=== PATIENT | male | born 1980 | race Two or more races ===

== ENCOUNTER 2020-05-24 15:58 | Inpatient (IN) | payer OTHER ==
[~2020-05-24] VITALS: Ht 185.4 cm; Wt 157.6 kg
[2020-05-24] MEDS ORDERED: methylPREDNISolone SOD SUCC 125 MG/2 ML VL IV ONE (16:15)
[2020-05-24 16:48] LABS: Basophils # (auto) 0 10 ^3/uL (0-0.2); Basophils % (auto) 0.3 % (0.0-2.0); Eosinophils # (auto) 0 10 ^3/uL (0-0.8); Hematocrit 47.9 % (41.0-53.0); Hemoglobin 17.1 g/dL (13.5-17.5); Lymphocytes # (auto) 0.6 10 ^3/uL (0.4-5.4); Lymphocytes % (auto) 8.4 % (10.0-50.0); Mean Corpuscular Hemoglobin 30.8 pg (28.0-32.0); Mean Corpuscular Hgb Conc. 35.7 g/dL (32.0-36.0); Mean Corpuscular Volume 86.2 fL (80.0-100.0); Monocytes # (auto) 0.5 10 ^3/uL (0-1.3); Monocytes % (auto) 6.7 % (0.0-12.0); Neutrophils # (auto) 5.9 10 ^3/uL (1.6-8.6); Neutrophils % (auto) 84.6 % (37.0-80.0); Nucleated Red Blood Cells % 0.4 %; Platelet Count (auto) 264 10^3/uL (140-450); Red Blood Cells 5.55 10^6/uL (4.5-5.90); Red Cell Distribution Width 13.6 % (11.8-14.3)
[2020-05-24 17:13] LABS: Albumin 2.9 g/dL (3.4-5.0); Calcium 8.7 mg/dL (8.5-10.1); Potassium 3.3 mmol/L (3.5-5.1)
[2020-05-24 17:20] LABS: BUN/Creatinine Ratio 16.7; Bilirubin, Total 0.8 mg/dL (0.2-1.0); CRP High Sensitivity 7.27 mg/dL (< 0.3); Total Protein 7.9 g/dL (6.4-8.2)
[2020-05-24] MEDS ORDERED: MORPHINE SULF INJ 2 MG/ML SYRINGE 1ML IV PRN (18:15)
[2020-05-24] MEDS ORDERED: NITROGLYCERIN 0.4 MG SL TAB SL PRN (18:15)
[2020-05-24] MEDS ORDERED: PROMETHAZINE HCL 25 MG/ML 1ML IV PRN (19:00)
[2020-05-24] MEDS ORDERED: SODIUM CHLORIDE 0.9% 1,000 ML IV SCH (19:00)
[2020-05-24] MEDS ORDERED: REMDESIVIR PER PHARMACY IV SCH (19:00)
[2020-05-24] MEDS ORDERED: DEXTROSE (50%) 50ML SYRG IV PRN (19:00)
[2020-05-24] MEDS ORDERED: chlordiazePOXIDE HCL 25 MG CAP PO PRN (19:15)
[2020-05-24] MEDS ORDERED: POTASSIUM EFFERVESENT TAB 25 MEQ PO ONE (19:15)
[2020-05-24] MEDS ORDERED: THIAMINE 100mg/ml INJ (200mg/2ml VIAL) IV ONE (19:15)
[2020-05-24] MEDS ORDERED: SODIUM CHLORIDE 0.9% 500 ML IV ONE (19:30)
[2020-05-24] MEDS: BUDESONIDE (INHALATION) 180 MCG IH IN SCH (22:00)
[2020-05-24] MEDS: ACCU-CHEK COMFORT CURVE STRIP VI SCH (22:03)
[2020-05-24] MEDS: InsuLIN REG 1unit/0.01ml Soln (100units/ml) SC SCH (22:03)
[2020-05-24] MEDS: ENOXAPARIN SOD 40 MG/0.4 ML SYRINGE SC SCH (22:03)
[2020-05-24] MEDS: chlordiazePOXIDE HCL 5 MG CAP PO SCH (23:37)
[2020-05-25 03:27] VITALS: BP 116/70
[2020-05-25] MEDS ORDERED: LOSA-39 PO (04:56)
[2020-05-25] MEDS ORDERED: METO-158 PO (04:56)
[2020-05-25] MEDS ORDERED: CHOL400C7 PO (04:59)
[2020-05-25] MEDS: traMADol HCL 50 MG TAB PO PRN (06:01)
[2020-05-25] MEDS: ACCU-CHEK COMFORT CURVE STRIP VI SCH ×4 (06:50→21:11)
[2020-05-25] MEDS: InsuLIN REG 1unit/0.01ml Soln (100units/ml) SC SCH ×4 (06:51→21:10)
[2020-05-25] MEDS: chlordiazePOXIDE HCL 5 MG CAP PO SCH ×4 (06:55→23:50)
[2020-05-25 08:30] VITALS: BP 109/68
[2020-05-25] MEDS: BUDESONIDE (INHALATION) 180 MCG IH IN SCH ×2 (10:00→22:00)
[2020-05-25 10:38] LABS: Basophils # (auto) 0 10 ^3/uL (0-0.2); Basophils % (auto) 0.2 % (0.0-2.0); Eosinophils # (auto) 0 10 ^3/uL (0-0.8); Hematocrit 46.3 % (41.0-53.0); Hemoglobin 16.1 g/dL (13.5-17.5); Lymphocytes # (auto) 0.7 10 ^3/uL (0.4-5.4); Lymphocytes % (auto) 8.6 % (10.0-50.0); Mean Corpuscular Hemoglobin 30.2 pg (28.0-32.0); Mean Corpuscular Hgb Conc. 34.7 g/dL (32.0-36.0); Monocytes # (auto) 0.7 10 ^3/uL (0-1.3); Monocytes % (auto) 8.8 % (0.0-12.0); Neutrophils # (auto) 7.1 10 ^3/uL (1.6-8.6); Neutrophils % (auto) 82.4 % (37.0-80.0); Nucleated Red Blood Cells % 0.1 %; Platelet Count (auto) 290 10^3/uL (140-450); Red Blood Cells 5.32 10^6/uL (4.5-5.90); Red Cell Distribution Width 13.7 % (11.8-14.3); White Blood Cell 8.5 10^3/uL (4.4-10.8)
[2020-05-25 10:52] LABS: Albumin 2.5 g/dL (3.4-5.0); Potassium 3.6 mmol/L (3.5-5.1)
[2020-05-25 10:56] LABS: BUN/Creatinine Ratio 24.3; Bilirubin, Total 0.7 mg/dL (0.2-1.0); Total Protein 7.2 g/dL (6.4-8.2)
[2020-05-25] MEDS: levoFLOXacin 500MG 100 ML IV SCH (11:10)
[2020-05-25] MEDS: THIAMINE 100mg/ml INJ (200mg/2ml VIAL) IV SCH (11:10)
[2020-05-25] MEDS: ZINC SULFATE 220mg CAP or TAB PO SCH (11:10)
[2020-05-25] MEDS: ASCORBIC ACID 1,000 MG TAB PO SCH (11:10)
[2020-05-25] MEDS: DexAMETHasone SOD PHOS 10MG/1ML VIAL INJ IV SCH (11:10)
[2020-05-25] MEDS: CHOLECALCIFEROL (VITD3) 2,000 UNIT CAP PO SCH (11:11)
[2020-05-25] MEDS ORDERED: PROMETHAZINE W/CODEINE 5 ML ORAL SYRUP PO PRN (12:15)
[2020-05-25] MEDS ORDERED: PANTOPRAZOLE 40 MG/10 ML VIAL INJ IV ONE (12:15)
[2020-05-25] MEDS ORDERED: FOLIC ACID 1 MG TAB PO ONE (12:15)
[2020-05-25] MEDS: ENOXAPARIN SOD 40 MG/0.4 ML SYRINGE SC SCH ×2 (12:51→21:11)
[2020-05-25] MEDS: SODIUM CHLORIDE 0.9% 1,000 ML IV SCH (12:58)
[2020-05-25 14:25] VITALS: BP 102/58
[2020-05-25 17:06] VITALS: BP 109/64
[2020-05-25] MEDS: ACETAMINOPHEN 500 MG TAB PO PRN (20:11)
[2020-05-25 22:00] VITALS: BP 106/51
[2020-05-26] VITALS (7 sets, daily range): BP systolic 98–119; BP diastolic 53–77
[2020-05-26] MEDS: traMADol HCL 50 MG TAB PO PRN (04:03)
[2020-05-26] MEDS: LORazepam 2MG/ML-1ML VIAL IV PRN ×2 (04:03→20:26)
[2020-05-26] MEDS: chlordiazePOXIDE HCL 5 MG CAP PO SCH ×3 (06:00→17:11)
[2020-05-26] MEDS: InsuLIN REG 1unit/0.01ml Soln (100units/ml) SC SCH ×4 (06:03→22:35)
[2020-05-26] MEDS: ACCU-CHEK COMFORT CURVE STRIP VI SCH ×4 (06:03→22:33)
[2020-05-26 07:09] LABS: Potassium 3.6 mmol/L (3.5-5.1)
[2020-05-26 07:28] LABS: BUN/Creatinine Ratio 21.8; Calcium 8.1 mg/dL (8.5-10.1); Magnesium 2.8 mg/dL (1.6-2.6); Phosphorus 2.8 mg/dL (2.5-4.90)
[2020-05-26] MEDS: BUDESONIDE (INHALATION) 180 MCG IH IN SCH ×2 (08:10→22:54)
[2020-05-26] MEDS: SODIUM CHLORIDE 0.9% 1,000 ML IV SCH (08:15)
[2020-05-26] MEDS ORDERED: REMDESIVIR 200 MG in NS 210ml LOADING DOSE ADULT IV ONE (09:00)
[2020-05-26] MEDS: FOLIC ACID 1 MG TAB PO SCH (11:07)
[2020-05-26] MEDS: DexAMETHasone SOD PHOS 10MG/1ML VIAL INJ IV SCH (11:07)
[2020-05-26] MEDS: CHOLECALCIFEROL (VITD3) 2,000 UNIT CAP PO SCH (11:07)
[2020-05-26] MEDS: ASCORBIC ACID 1,000 MG TAB PO SCH (11:07)
[2020-05-26] MEDS: ZINC SULFATE 220mg CAP or TAB PO SCH (11:07)
[2020-05-26] MEDS: PANTOPRAZOLE 40 MG/10 ML VIAL INJ IV SCH (11:07)
[2020-05-26] MEDS: THIAMINE 100mg/ml INJ (200mg/2ml VIAL) IV SCH (11:07)
[2020-05-26] MEDS: levoFLOXacin 500MG 100 ML IV SCH (11:07)
[2020-05-26 11:14] LABS: Urine Bacteria NONE SEEN /hpf (None Seen); Urine Blood Negative /uL (Negative); Urine Specific Gravity 1.017 (1.001-1.035); Urine WBC 2 /hpf (0 - 3)
[2020-05-26] MEDS: ENOXAPARIN SOD 100 MG/1 ML SYRINGE SC SCH (22:33)
[2020-05-26] MEDS: TEMAZEPAM 15 MG CAP PO PRN (22:40)
[2020-05-26] MEDS: ALBUTEROL SULF HFA 90MCG INH 200DOSE IN PRN (22:54)
[2020-05-27] MEDS: InsuLIN REG 1unit/0.01ml Soln (100units/ml) SC SCH ×4 (05:15→21:41)
[2020-05-27] MEDS: ACCU-CHEK COMFORT CURVE STRIP VI SCH ×4 (05:17→21:41)
[2020-05-27] MEDS: chlordiazePOXIDE HCL 5 MG CAP PO SCH ×5 (05:49→23:43)
[2020-05-27 06:44] LABS: Potassium 3.7 mmol/L (3.5-5.1)
[2020-05-27 06:51] LABS: BUN/Creatinine Ratio 20.4; Calcium 8.2 mg/dL (8.5-10.1)
[2020-05-27] MEDS: BUDESONIDE (INHALATION) 180 MCG IH IN SCH ×2 (08:20→19:29)
[2020-05-27] MEDS: ALBUTEROL SULF HFA 90MCG INH 200DOSE IN PRN ×2 (08:20→19:30)
[2020-05-27] MEDS: THIAMINE 100mg/ml INJ (200mg/2ml VIAL) IV SCH (08:55)
[2020-05-27] MEDS: CHOLECALCIFEROL (VITD3) 2,000 UNIT CAP PO SCH (08:56)
[2020-05-27] MEDS: DexAMETHasone SOD PHOS 10MG/1ML VIAL INJ IV SCH (08:56)
[2020-05-27] MEDS: ENOXAPARIN SOD 100 MG/1 ML SYRINGE SC SCH ×2 (08:56→21:41)
[2020-05-27] MEDS: levoFLOXacin 500MG 100 ML IV SCH (08:56)
[2020-05-27] MEDS: PANTOPRAZOLE 40 MG/10 ML VIAL INJ IV SCH (08:56)
[2020-05-27] MEDS: ZINC SULFATE 220mg CAP or TAB PO SCH (08:56)
[2020-05-27] MEDS: ASCORBIC ACID 1,000 MG TAB PO SCH (08:56)
[2020-05-27] MEDS: FOLIC ACID 1 MG TAB PO SCH (08:56)
[2020-05-27 09:00] VITALS: BP 124/69
[2020-05-27] MEDS: REMDESIVIR 100 MG in SODIUM CHL 0.9% 250 ML IV SCH (09:00)
[2020-05-27] MEDS ORDERED: POTASSIUM CHL 20 Meq TABLET PO ONE (12:15)
[2020-05-27] MEDS ORDERED: FUROSEMIDE 40 MG/4 ML VIAL IV ONE (12:15)
[2020-05-27 13:00] VITALS: BP 116/64
[2020-05-27] MEDS: Glucerna Carbsteady SHAKE Vanilla 8oz PO SCH (17:03)
[2020-05-27 22:00] VITALS: BP 97/68
[2020-05-27 22:35] VITALS: BP 124/69
[2020-05-28] MEDS: LORazepam 2MG/ML-1ML VIAL IV PRN ×2 (00:41→11:18)
[2020-05-28] MEDS: chlordiazePOXIDE HCL 5 MG CAP PO SCH ×2 (05:39→12:00)
[2020-05-28] MEDS: InsuLIN REG 1unit/0.01ml Soln (100units/ml) SC SCH ×3 (05:58→17:53)
[2020-05-28] MEDS: ACCU-CHEK COMFORT CURVE STRIP VI SCH ×3 (05:59→17:52)
[2020-05-28 06:20] LABS: Potassium 3.4 mmol/L (3.5-5.1)
[2020-05-28 06:26] VITALS: BP 124/68
[2020-05-28 06:27] LABS: BUN/Creatinine Ratio 20.8; Calcium 8.1 mg/dL (8.5-10.1); Magnesium 2.6 mg/dL (1.6-2.6)
[2020-05-28 09:00] VITALS: BP 109/67
[2020-05-28] MEDS: levoFLOXacin 500MG 100 ML IV SCH (10:00)
[2020-05-28] MEDS: BUDESONIDE (INHALATION) 180 MCG IH IN SCH ×2 (10:00→18:54)
[2020-05-28] MEDS: Glucerna Carbsteady SHAKE Vanilla 8oz PO SCH ×3 (10:41→17:51)
[2020-05-28] MEDS: REMDESIVIR 100 MG in SODIUM CHL 0.9% 250 ML IV SCH (10:41)
[2020-05-28] MEDS: PANTOPRAZOLE 40 MG/10 ML VIAL INJ IV SCH (10:42)
[2020-05-28] MEDS: FOLIC ACID 1 MG TAB PO SCH (10:42)
[2020-05-28] MEDS: DexAMETHasone SOD PHOS 10MG/1ML VIAL INJ IV SCH (10:42)
[2020-05-28] MEDS: THIAMINE 100mg/ml INJ (200mg/2ml VIAL) IV SCH (10:42)
[2020-05-28] MEDS: ENOXAPARIN SOD 100 MG/1 ML SYRINGE SC SCH ×2 (10:43→21:35)
[2020-05-28] MEDS: ASCORBIC ACID 1,000 MG TAB PO SCH (10:43)
[2020-05-28] MEDS: ZINC SULFATE 220mg CAP or TAB PO SCH (10:43)
[2020-05-28] MEDS: CHOLECALCIFEROL (VITD3) 2,000 UNIT CAP PO SCH (10:43)
[2020-05-28 13:00] VITALS: BP 119/76
[2020-05-28] MEDS: MORPHINE SULF INJ 2 MG/ML SYRINGE 1ML IV PRN ×2 (14:17→21:36)
[2020-05-28] MEDS ORDERED: PPN PER PHARMACY 0 ML IV SCH (14:45)
[2020-05-28 16:15] LABS: Albumin 2.5 g/dL (3.4-5.0); Bilirubin, Direct 0.4 mg/dL (0-0.2)
[2020-05-28 16:20] LABS: Bilirubin, Total 0.8 mg/dL (0.2-1.0); Phosphorus 3.9 mg/dL (2.5-4.90); Pre Albumin 10.4 mg/dL (20.0-40.0); Total Protein 7.4 g/dL (6.4-8.2)
[2020-05-28 17:00] VITALS: BP 112/78
[2020-05-28] MEDS ORDERED: POTASSIUM CHL 20MEQ/100ML 100 ML IV ONE (18:15)
[2020-05-28] MEDS ORDERED: DEXTROSE (50%) 50ML SYRG IV PRN (18:15)
[2020-05-28] MEDS: ALBUTEROL SULF HFA 90MCG INH 200DOSE IN PRN (18:54)
[2020-05-28] MEDS ORDERED: CLINIMIX PER PHARMACY IV NR (20:00)
[2020-05-28 21:52] VITALS: BP 110/86
[2020-05-28] MEDS ORDERED: REMDESIVIR PER PHARMACY IV SCH (22:00)
[2020-05-28] MEDS ORDERED: ACCU-CHEK COMFORT CURVE STRIP VI SCH (22:00)
[2020-05-28] MEDS ORDERED: InsuLIN REG 1unit/0.01ml Soln (100units/ml) SC SCH (22:00)
[2020-05-29] MEDS ORDERED: DEXTROSE (50%) 50ML SYRG IV SCH
[2020-05-29] MEDS: ACCU-CHEK COMFORT CURVE STRIP VI SCH ×4 (01:06→18:00)
[2020-05-29 05:00] VITALS: BP 103/47
[2020-05-29] MEDS: InsuLIN REG 1unit/0.01ml Soln (100units/ml) SC SCH ×4 (05:54→18:00)
[2020-05-29] MEDS: traMADol HCL 50 MG TAB PO PRN (05:54)
[2020-05-29] MEDS: BUDESONIDE (INHALATION) 180 MCG IH IN SCH ×2 (06:16→21:22)
[2020-05-29] MEDS: ALBUTEROL SULF HFA 90MCG INH 200DOSE IN PRN ×2 (06:16→22:45)
[2020-05-29 06:25] LABS: Basophils # (auto) 0.1 10 ^3/uL (0-0.2); Basophils % (auto) 0.5 % (0.0-2.0); Eosinophils # (auto) 0.1 10 ^3/uL (0-0.8); Eosinophils % (auto) 0.6 % (0.0-7.0); Hematocrit 43.5 % (41.0-53.0); Hemoglobin 14.6 g/dL (13.5-17.5); Lymphocytes # (auto) 1.1 10 ^3/uL (0.4-5.4); Lymphocytes % (auto) 8.5 % (10.0-50.0); Mean Corpuscular Hemoglobin 29.8 pg (28.0-32.0); Mean Corpuscular Hgb Conc. 33.6 g/dL (32.0-36.0); Mean Corpuscular Volume 88.7 fL (80.0-100.0); Monocytes # (auto) 0.3 10 ^3/uL (0-1.3); Monocytes % (auto) 2.6 % (0.0-12.0); Neutrophils # (auto) 11.1 10 ^3/uL (1.6-8.6); Neutrophils % (auto) 87.8 % (37.0-80.0); Platelet Count (auto) 366 10^3/uL (140-450); Red Cell Distribution Width 13.8 % (11.8-14.3); White Blood Cell 12.7 10^3/uL (4.4-10.8)
[2020-05-29 06:47] LABS: Potassium 3.7 mmol/L (3.5-5.1)
[2020-05-29 07:06] LABS: Albumin 2.2 g/dL (3.4-5.0); Bilirubin, Total 1.1 mg/dL (0.2-1.0); Magnesium 2.4 mg/dL (1.6-2.6); Phosphorus 2.2 mg/dL (2.5-4.90); Total Protein 7.1 g/dL (6.4-8.2)
[2020-05-29] MEDS: Glucerna Carbsteady SHAKE Vanilla 8oz PO SCH ×3 (08:00→18:00)
[2020-05-29] MEDS: REMDESIVIR 100 MG in SODIUM CHL 0.9% 250 ML IV SCH (09:27)
[2020-05-29] MEDS: THIAMINE 100mg/ml INJ (200mg/2ml VIAL) IV SCH (09:28)
[2020-05-29] MEDS: DexAMETHasone SOD PHOS 10MG/1ML VIAL INJ IV SCH (09:28)
[2020-05-29] MEDS: ASCORBIC ACID 1,000 MG TAB PO SCH (09:29)
[2020-05-29] MEDS: PANTOPRAZOLE 40 MG/10 ML VIAL INJ IV SCH (09:29)
[2020-05-29] MEDS: ENOXAPARIN SOD 100 MG/1 ML SYRINGE SC SCH ×2 (09:29→22:14)
[2020-05-29] MEDS: ZINC SULFATE 220mg CAP or TAB PO SCH (09:29)
[2020-05-29] MEDS: CHOLECALCIFEROL (VITD3) 2,000 UNIT CAP PO SCH (09:29)
[2020-05-29] MEDS: FOLIC ACID 1 MG TAB PO SCH (09:29)
[2020-05-29] MEDS ORDERED: SODIUM PHOSPHATES 20 MEQ in SODIUM CHL 0.9% 100 ML IV ONE (09:30)
[2020-05-29] MEDS ORDERED: FUROSEMIDE 20 MG/2 ML VIAL IV ONE (12:30)
[2020-05-29] MEDS ORDERED: POTASSIUM CHL 20 Meq TABLET PO ONE (12:30)
[2020-05-29] MEDS: PIPERACILLIN-TAZOB 3.375GM 100 ML IV SCH ×2 (15:36→22:14)
[2020-05-29 18:30] VITALS: BP 110/74
[2020-05-29] MEDS: MORPHINE SULF INJ 2 MG/ML SYRINGE 1ML IV PRN (19:00)
[2020-05-29] MEDS ORDERED: PPN PER PHARMACY IV NR ×8 (20:00)
[2020-05-29 21:19] VITALS: BP 111/58
[2020-05-30] MEDS: ACCU-CHEK COMFORT CURVE STRIP VI SCH ×4 (00:16→18:00)
[2020-05-30] MEDS: TEMAZEPAM 15 MG CAP PO PRN (00:52)
[2020-05-30 05:00] VITALS: BP 96/61
[2020-05-30 05:22] LABS: Basophils # (auto) 0 10 ^3/uL (0-0.2); Basophils % (auto) 0.1 % (0.0-2.0); Eosinophils # (auto) 0.1 10 ^3/uL (0-0.8); Eosinophils % (auto) 0.4 % (0.0-7.0); Hematocrit 41.5 % (41.0-53.0); Hemoglobin 13.9 g/dL (13.5-17.5); Lymphocytes # (auto) 0.6 10 ^3/uL (0.4-5.4); Mean Corpuscular Hemoglobin 29.5 pg (28.0-32.0); Mean Corpuscular Hgb Conc. 33.5 g/dL (32.0-36.0); Monocytes # (auto) 0.2 10 ^3/uL (0-1.3); Monocytes % (auto) 1.5 % (0.0-12.0); Neutrophils # (auto) 13.4 10 ^3/uL (1.6-8.6); Platelet Count (auto) 317 10^3/uL (140-450); Red Blood Cells 4.71 10^6/uL (4.5-5.90); Red Cell Distribution Width 13.4 % (11.8-14.3); White Blood Cell 14.2 10^3/uL (4.4-10.8)
[2020-05-30 05:40] LABS: Magnesium 2.4 mg/dL (1.6-2.6)
[2020-05-30 05:42] LABS: Calcium 7.7 mg/dL (8.5-10.1)
[2020-05-30 05:43] LABS: Phosphorus 2.5 mg/dL (2.5-4.90)
[2020-05-30] MEDS: PIPERACILLIN-TAZOB 3.375GM 100 ML IV SCH ×3 (05:46→21:41)
[2020-05-30 05:48] LABS: Albumin 1.8 g/dL (3.4-5.0); BUN/Creatinine Ratio 21.6; Bilirubin, Total 0.8 mg/dL (0.2-1.0); Total Protein 6.5 g/dL (6.4-8.2)
[2020-05-30] MEDS: InsuLIN REG 1unit/0.01ml Soln (100units/ml) SC SCH ×4 (06:02→18:30)
[2020-05-30] MEDS: BUDESONIDE (INHALATION) 180 MCG IH IN SCH (06:36)
[2020-05-30] MEDS: Glucerna Carbsteady SHAKE Vanilla 8oz PO SCH ×3 (08:00→18:18)
[2020-05-30 09:00] VITALS: BP 127/66
[2020-05-30] MEDS: DexAMETHasone SOD PHOS 10MG/1ML VIAL INJ IV SCH (09:43)
[2020-05-30] MEDS: THIAMINE 100mg/ml INJ (200mg/2ml VIAL) IV SCH (09:43)
[2020-05-30] MEDS: PANTOPRAZOLE 40 MG/10 ML VIAL INJ IV SCH (09:45)
[2020-05-30] MEDS: MORPHINE SULF INJ 2 MG/ML SYRINGE 1ML IV PRN ×3 (09:45→21:40)
[2020-05-30] MEDS: REMDESIVIR 100 MG in SODIUM CHL 0.9% 250 ML IV SCH (09:45)
[2020-05-30] MEDS: ASCORBIC ACID 1,000 MG TAB PO SCH (09:46)
[2020-05-30] MEDS: ZINC SULFATE 220mg CAP or TAB PO SCH (09:46)
[2020-05-30] MEDS: POTASSIUM CHL 20 Meq TABLET PO SCH (09:46)
[2020-05-30] MEDS: FOLIC ACID 1 MG TAB PO SCH (09:46)
[2020-05-30] MEDS: CHOLECALCIFEROL (VITD3) 2,000 UNIT CAP PO SCH (09:46)
[2020-05-30] MEDS: ENOXAPARIN SOD 100 MG/1 ML SYRINGE SC SCH ×2 (09:46→21:41)
[2020-05-30] MEDS ORDERED: FUROSEMIDE 20 MG/2 ML VIAL IV SCH (10:00)
[2020-05-30 13:00] VITALS: BP 99/51
[2020-05-30] MEDS ORDERED: FUROSEMIDE 20 MG/2 ML VIAL IV ONE (13:15)
[2020-05-30 17:00] VITALS: BP 104/72
[2020-05-30] MEDS: BUDESONIDE (INHALATION) 0.5 MG/2 ML NEB NEB SCH (17:56)
[2020-05-30] MEDS: ALBUTEROL SULF 2.5 MG/0.5ML(0.5%) NEB SOLN NEB SCH (17:56)
[2020-05-30] MEDS ORDERED: PPN PER PHARMACY IV NR ×10 (20:00)
[2020-05-30 22:00] VITALS: BP 124/74
[2020-05-31 05:00] VITALS: BP 119/65
[2020-05-31] MEDS: InsuLIN REG 1unit/0.01ml Soln (100units/ml) SC SCH ×4 (05:13→18:08)
[2020-05-31] MEDS: ACCU-CHEK COMFORT CURVE STRIP VI SCH ×4 (05:17→18:07)
[2020-05-31] MEDS: PIPERACILLIN-TAZOB 3.375GM 100 ML IV SCH ×3 (05:20→21:59)
[2020-05-31] MEDS: MORPHINE SULF INJ 2 MG/ML SYRINGE 1ML IV PRN ×2 (05:54→22:00)
[2020-05-31 06:11] LABS: Basophils # (auto) 0.1 10 ^3/uL (0-0.2); Basophils % (auto) 0.6 % (0.0-2.0); Eosinophils # (auto) 0.1 10 ^3/uL (0-0.8); Eosinophils % (auto) 0.5 % (0.0-7.0); Hematocrit 44.1 % (41.0-53.0); Hemoglobin 14.9 g/dL (13.5-17.5); Lymphocytes # (auto) 0.7 10 ^3/uL (0.4-5.4); Lymphocytes % (auto) 4.7 % (10.0-50.0); Mean Corpuscular Hgb Conc. 33.8 g/dL (32.0-36.0); Mean Corpuscular Volume 88.6 fL (80.0-100.0); Monocytes # (auto) 0.3 10 ^3/uL (0-1.3); Monocytes % (auto) 2.2 % (0.0-12.0); Neutrophils # (auto) 13.4 10 ^3/uL (1.6-8.6); Nucleated Red Blood Cells % 0.1 %; Platelet Count (auto) 362 10^3/uL (140-450); Red Blood Cells 4.98 10^6/uL (4.5-5.90); Red Cell Distribution Width 13.5 % (11.8-14.3); White Blood Cell 14.6 10^3/uL (4.4-10.8)
[2020-05-31 06:19] LABS: Potassium 3.5 mmol/L (3.5-5.1)
[2020-05-31 06:23] LABS: BUN/Creatinine Ratio 18.6; Bilirubin, Total 0.9 mg/dL (0.2-1.0); Calcium 8.1 mg/dL (8.5-10.1); Magnesium 2.3 mg/dL (1.6-2.6); Phosphorus 3.2 mg/dL (2.5-4.90); Total Protein 7.3 g/dL (6.4-8.2)
[2020-05-31] MEDS: ALBUTEROL SULF 2.5 MG/0.5ML(0.5%) NEB SOLN NEB SCH ×3 (06:34→21:50)
[2020-05-31] MEDS: BUDESONIDE (INHALATION) 0.5 MG/2 ML NEB NEB SCH ×2 (06:34→21:50)
[2020-05-31] MEDS: Glucerna Carbsteady SHAKE Vanilla 8oz PO SCH ×3 (08:00→18:08)
[2020-05-31 09:00] VITALS: BP 111/67
[2020-05-31] MEDS: ENOXAPARIN SOD 100 MG/1 ML SYRINGE SC SCH ×2 (10:20→21:59)
[2020-05-31] MEDS: PANTOPRAZOLE 40 MG/10 ML VIAL INJ IV SCH (10:20)
[2020-05-31] MEDS: ASCORBIC ACID 1,000 MG TAB PO SCH (10:21)
[2020-05-31] MEDS: ZINC SULFATE 220mg CAP or TAB PO SCH (10:21)
[2020-05-31] MEDS: FUROSEMIDE 40 MG/4 ML VIAL IV SCH (10:21)
[2020-05-31] MEDS: DexAMETHasone SOD PHOS 10MG/1ML VIAL INJ IV SCH (10:21)
[2020-05-31] MEDS: CHOLECALCIFEROL (VITD3) 2,000 UNIT CAP PO SCH (10:21)
[2020-05-31] MEDS: FOLIC ACID 1 MG TAB PO SCH (10:21)
[2020-05-31] MEDS: THIAMINE 100mg/ml INJ (200mg/2ml VIAL) IV SCH (10:21)
[2020-05-31] MEDS: POTASSIUM CHL 20 Meq TABLET PO SCH (10:21)
[2020-05-31] MEDS: LORazepam 2MG/ML-1ML VIAL IV PRN (11:23)
[2020-05-31 13:00] VITALS: BP 95/53
[2020-05-31 17:00] VITALS: BP 101/57
[2020-05-31] MEDS ORDERED: PPN PER PHARMACY IV NR ×10 (20:00)
[2020-05-31 22:00] VITALS: BP 133/81
[2020-06-01] MEDS: ACCU-CHEK COMFORT CURVE STRIP VI SCH ×5 (00:08→23:30)
[2020-06-01] MEDS: InsuLIN REG 1unit/0.01ml Soln (100units/ml) SC SCH ×5 (00:09→23:30)
[2020-06-01] MEDS: LORazepam 2MG/ML-1ML VIAL IV PRN ×2 (01:37→23:14)
[2020-06-01] MEDS: ACETAMINOPHEN 500 MG TAB PO PRN (04:07)
[2020-06-01] MEDS: MORPHINE SULF INJ 2 MG/ML SYRINGE 1ML IV PRN ×2 (04:21→20:23)
[2020-06-01 05:00] VITALS: BP 101/50
[2020-06-01 06:12] LABS: Basophils # (auto) 0 10 ^3/uL (0-0.2); Basophils % (auto) 0.1 % (0.0-2.0); Eosinophils # (auto) 0.2 10 ^3/uL (0-0.8); Eosinophils % (auto) 1.5 % (0.0-7.0); Hematocrit 42.2 % (41.0-53.0); Hemoglobin 14.5 g/dL (13.5-17.5); Lymphocytes # (auto) 0.8 10 ^3/uL (0.4-5.4); Lymphocytes % (auto) 6.6 % (10.0-50.0); Mean Corpuscular Hemoglobin 30.2 pg (28.0-32.0); Mean Corpuscular Hgb Conc. 34.3 g/dL (32.0-36.0); Mean Corpuscular Volume 87.9 fL (80.0-100.0); Monocytes # (auto) 0.2 10 ^3/uL (0-1.3); Monocytes % (auto) 1.9 % (0.0-12.0); Neutrophils # (auto) 10.5 10 ^3/uL (1.6-8.6); Neutrophils % (auto) 89.9 % (37.0-80.0); Nucleated Red Blood Cells % 0.1 %; Platelet Count (auto) 359 10^3/uL (140-450); Red Blood Cells 4.81 10^6/uL (4.5-5.90); Red Cell Distribution Width 13.4 % (11.8-14.3); White Blood Cell 11.7 10^3/uL (4.4-10.8)
[2020-06-01] MEDS: BUDESONIDE (INHALATION) 0.5 MG/2 ML NEB NEB SCH ×2 (06:16→20:31)
[2020-06-01] MEDS: ALBUTEROL SULF 2.5 MG/0.5ML(0.5%) NEB SOLN NEB SCH ×3 (06:16→20:31)
[2020-06-01 06:36] LABS: Potassium 3.6 mmol/L (3.5-5.1)
[2020-06-01 06:49] LABS: Albumin 1.9 g/dL (3.4-5.0); BUN/Creatinine Ratio 18.2; Bilirubin, Total 0.9 mg/dL (0.2-1.0); Calcium 7.8 mg/dL (8.5-10.1); Magnesium 1.9 mg/dL (1.6-2.6)
[2020-06-01] MEDS: PIPERACILLIN-TAZOB 3.375GM 100 ML IV SCH ×3 (06:59→20:00)
[2020-06-01 08:00] VITALS: BP 111/67
[2020-06-01] MEDS: Glucerna Carbsteady SHAKE Vanilla 8oz PO SCH ×3 (08:00→18:00)
[2020-06-01] MEDS: THIAMINE 100mg/ml INJ (200mg/2ml VIAL) IV SCH (09:57)
[2020-06-01] MEDS: PANTOPRAZOLE 40 MG/10 ML VIAL INJ IV SCH (09:57)
[2020-06-01] MEDS: DexAMETHasone SOD PHOS 10MG/1ML VIAL INJ IV SCH (09:58)
[2020-06-01] MEDS: FUROSEMIDE 40 MG/4 ML VIAL IV SCH (09:58)
[2020-06-01] MEDS: ENOXAPARIN SOD 100 MG/1 ML SYRINGE SC SCH ×2 (09:58→19:59)
[2020-06-01] MEDS: ASCORBIC ACID 1,000 MG TAB PO SCH (09:59)
[2020-06-01] MEDS: ZINC SULFATE 220mg CAP or TAB PO SCH (09:59)
[2020-06-01] MEDS: CHOLECALCIFEROL (VITD3) 2,000 UNIT CAP PO SCH (09:59)
[2020-06-01] MEDS: FOLIC ACID 1 MG TAB PO SCH (09:59)
[2020-06-01] MEDS: POTASSIUM CHL 20 Meq TABLET PO SCH (09:59)
[2020-06-01 13:00] VITALS: BP 104/58
[2020-06-01] MEDS ORDERED: VANCOMYCIN PER PHARMACY 0 MG IV SCH (15:15)
[2020-06-01 17:00] VITALS: BP 100/78
[2020-06-01] MEDS: VANCOMYCIN 1GM/250ML 250 ML IV SCH (18:59)
[2020-06-01] MEDS ORDERED: PPN PER PHARMACY IV NR ×11 (20:00)
[2020-06-01 21:00] VITALS: BP 105/61
[2020-06-02] MEDS ORDERED: VANCOMYCIN 1GM/250ML 250 ML IV SCH
[2020-06-02] MEDS: VANCOMYCIN 1GM/250ML 250 ML IV SCH ×2 (01:27→10:29)
[2020-06-02] MEDS: ACCU-CHEK COMFORT CURVE STRIP VI SCH ×4 (05:34→23:30)
[2020-06-02] MEDS: PIPERACILLIN-TAZOB 3.375GM 100 ML IV SCH ×3 (05:34→21:28)
[2020-06-02] MEDS: InsuLIN REG 1unit/0.01ml Soln (100units/ml) SC SCH ×3 (05:35→17:15)
[2020-06-02 07:33] LABS: Basophils # (auto) 0 10 ^3/uL (0-0.2); Basophils % (auto) 0.1 % (0.0-2.0); Eosinophils # (auto) 0.2 10 ^3/uL (0-0.8); Eosinophils % (auto) 1.2 % (0.0-7.0); Hematocrit 41.1 % (41.0-53.0); Hemoglobin 14.2 g/dL (13.5-17.5); Lymphocytes # (auto) 0.6 10 ^3/uL (0.4-5.4); Lymphocytes % (auto) 4.8 % (10.0-50.0); Mean Corpuscular Hemoglobin 30.3 pg (28.0-32.0); Mean Corpuscular Hgb Conc. 34.6 g/dL (32.0-36.0); Mean Corpuscular Volume 87.6 fL (80.0-100.0); Monocytes # (auto) 0.2 10 ^3/uL (0-1.3); Monocytes % (auto) 1.8 % (0.0-12.0); Neutrophils # (auto) 12.2 10 ^3/uL (1.6-8.6); Neutrophils % (auto) 92.1 % (37.0-80.0); Platelet Count (auto) 304 10^3/uL (140-450); Red Cell Distribution Width 13.6 % (11.8-14.3); White Blood Cell 13.3 10^3/uL (4.4-10.8)
[2020-06-02 07:35] LABS: Albumin 1.6 g/dL (3.4-5.0); Calcium 7.9 mg/dL (8.5-10.1); Magnesium 2.3 mg/dL (1.6-2.6); Potassium 3.9 mmol/L (3.5-5.1)
[2020-06-02 07:41] LABS: BUN/Creatinine Ratio 23.5; Bilirubin, Total 0.7 mg/dL (0.2-1.0); Phosphorus 3.1 mg/dL (2.5-4.90); Total Protein 6.7 g/dL (6.4-8.2)
[2020-06-02] MEDS: MORPHINE SULF INJ 2 MG/ML SYRINGE 1ML IV PRN (07:53)
[2020-06-02] MEDS: BUDESONIDE (INHALATION) 0.5 MG/2 ML NEB NEB SCH ×2 (07:54→22:00)
[2020-06-02] MEDS: ALBUTEROL SULF 2.5 MG/0.5ML(0.5%) NEB SOLN NEB SCH ×3 (07:54→22:00)
[2020-06-02 08:00] VITALS: BP 102/59
[2020-06-02] MEDS: Glucerna Carbsteady SHAKE Vanilla 8oz PO SCH ×3 (08:00→18:00)
[2020-06-02] MEDS: THIAMINE 100mg/ml INJ (200mg/2ml VIAL) IV SCH (10:26)
[2020-06-02] MEDS: DexAMETHasone SOD PHOS 10MG/1ML VIAL INJ IV SCH (10:26)
[2020-06-02] MEDS: FUROSEMIDE 40 MG/4 ML VIAL IV SCH (10:26)
[2020-06-02] MEDS: FOLIC ACID 1 MG TAB PO SCH (10:28)
[2020-06-02] MEDS: PANTOPRAZOLE 40 MG/10 ML VIAL INJ IV SCH (10:28)
[2020-06-02] MEDS: POTASSIUM CHL 20 Meq TABLET PO SCH (10:28)
[2020-06-02] MEDS: ZINC SULFATE 220mg CAP or TAB PO SCH (10:28)
[2020-06-02] MEDS: ASCORBIC ACID 1,000 MG TAB PO SCH (10:28)
[2020-06-02] MEDS: CHOLECALCIFEROL (VITD3) 2,000 UNIT CAP PO SCH (10:28)
[2020-06-02] MEDS: ENOXAPARIN SOD 100 MG/1 ML SYRINGE SC SCH ×2 (10:29→22:32)
[2020-06-02] MEDS: LORazepam 2MG/ML-1ML VIAL IV PRN ×2 (12:49→23:11)
[2020-06-02 15:37] VITALS: BP 148/72
[2020-06-02] MEDS ORDERED: LORazepam 2MG/ML-1ML VIAL IV ONE (17:45)
[2020-06-02 19:00] VITALS: BP 108/62
[2020-06-02 20:00] VITALS: BP 107/51
[2020-06-02] MEDS ORDERED: PPN PER PHARMACY IV NR ×9 (20:00)
[2020-06-02 21:00] VITALS: BP 95/53
[2020-06-02 22:00] VITALS: BP 99/64
[2020-06-03] VITALS: BP 105/59
[2020-06-03] MEDS: VANCOMYCIN 1GM/250ML 250 ML IV SCH ×4 (00:49→18:00)
[2020-06-03 04:04] LABS: Albumin 1.7 g/dL (3.4-5.0); BUN/Creatinine Ratio 21.3; Bilirubin, Total 0.6 mg/dL (0.2-1.0); Calcium 8.2 mg/dL (8.5-10.1); Magnesium 2.6 mg/dL (1.6-2.6); Phosphorus 3.4 mg/dL (2.5-4.90); Pre Albumin 6.9 mg/dL (20.0-40.0); Total Protein 6.6 g/dL (6.4-8.2)
[2020-06-03] MEDS: PIPERACILLIN-TAZOB 3.375GM 100 ML IV SCH ×3 (04:37→20:59)
[2020-06-03] MEDS: ACCU-CHEK COMFORT CURVE STRIP VI SCH ×3 (05:37→18:44)
[2020-06-03] MEDS: InsuLIN REG 1unit/0.01ml Soln (100units/ml) SC SCH ×4 (05:39→18:00)
[2020-06-03] MEDS: MORPHINE SULF INJ 2 MG/ML SYRINGE 1ML IV PRN (06:29)
[2020-06-03] MEDS: BUDESONIDE (INHALATION) 0.5 MG/2 ML NEB NEB SCH ×2 (07:45→18:51)
[2020-06-03 08:00] VITALS: BP 126/70
[2020-06-03] MEDS: Glucerna Carbsteady SHAKE Vanilla 8oz PO SCH ×3 (08:00→18:00)
[2020-06-03] MEDS: LORazepam 2MG/ML-1ML VIAL IV PRN ×2 (09:00→21:00)
[2020-06-03] MEDS: THIAMINE 100mg/ml INJ (200mg/2ml VIAL) IV SCH (10:27)
[2020-06-03] MEDS: DexAMETHasone SOD PHOS 10MG/1ML VIAL INJ IV SCH (10:27)
[2020-06-03] MEDS: CHOLECALCIFEROL (VITD3) 2,000 UNIT CAP PO SCH (10:28)
[2020-06-03] MEDS: FOLIC ACID 1 MG TAB PO SCH (10:28)
[2020-06-03] MEDS: POTASSIUM CHL 20 Meq TABLET PO SCH (10:28)
[2020-06-03] MEDS: PANTOPRAZOLE 40 MG/10 ML VIAL INJ IV SCH (10:28)
[2020-06-03] MEDS: FUROSEMIDE 40 MG/4 ML VIAL IV SCH (10:28)
[2020-06-03] MEDS: ASCORBIC ACID 1,000 MG TAB PO SCH (10:28)
[2020-06-03] MEDS: ZINC SULFATE 220mg CAP or TAB PO SCH (10:28)
[2020-06-03] MEDS: ENOXAPARIN SOD 100 MG/1 ML SYRINGE SC SCH ×2 (10:29→21:00)
[2020-06-03 12:00] VITALS: BP 90/54
[2020-06-03] MEDS ORDERED: FLUCONAZOLE 200MG/100ML 100 ML IV ONE (12:15)
[2020-06-03 16:00] VITALS: BP 105/81
[2020-06-03] MEDS: ALBUTEROL SULF 2.5 MG/0.5ML(0.5%) NEB SOLN NEB SCH (18:51)
[2020-06-03] MEDS ORDERED: PPN PER PHARMACY IV NR ×9 (20:00)
[2020-06-03 23:55] VITALS: BP 155/84
[2020-06-04] MEDS: VANCOMYCIN 1GM/250ML 250 ML IV SCH ×4 (00:05→18:29)
[2020-06-04] MEDS: ACCU-CHEK COMFORT CURVE STRIP VI SCH ×4 (00:06→18:29)
[2020-06-04] MEDS: InsuLIN REG 1unit/0.01ml Soln (100units/ml) SC SCH ×4 (00:15→18:29)
[2020-06-04 04:01] VITALS: BP 153/61
[2020-06-04 04:20] LABS: Albumin 1.7 g/dL (3.4-5.0); Calcium 8.2 mg/dL (8.5-10.1); Magnesium 2.6 mg/dL (1.6-2.6); Potassium 3.6 mmol/L (3.5-5.1)
[2020-06-04 04:23] LABS: Bilirubin, Total 0.6 mg/dL (0.2-1.0); Phosphorus 3.2 mg/dL (2.5-4.90); Total Protein 6.8 g/dL (6.4-8.2)
[2020-06-04] MEDS: PIPERACILLIN-TAZOB 3.375GM 100 ML IV SCH ×3 (05:44→21:07)
[2020-06-04] MEDS: BUDESONIDE (INHALATION) 0.5 MG/2 ML NEB NEB SCH ×2 (07:45→19:32)
[2020-06-04] MEDS ORDERED: AMINO ACID INFUSION IN D10W 1,000 ML IV NR (08:00)
[2020-06-04] MEDS: MORPHINE SULF INJ 2 MG/ML SYRINGE 1ML IV PRN ×3 (08:00→20:18)
[2020-06-04] MEDS: Glucerna Carbsteady SHAKE Vanilla 8oz PO SCH ×3 (08:00→18:00)
[2020-06-04] MEDS: DexAMETHasone SOD PHOS 10MG/1ML VIAL INJ IV SCH (09:21)
[2020-06-04] MEDS: LORazepam 2MG/ML-1ML VIAL IV PRN ×2 (09:21→17:47)
[2020-06-04] MEDS: FUROSEMIDE 20 MG/2 ML VIAL IV SCH (09:22)
[2020-06-04] MEDS: THIAMINE 100mg/ml INJ (200mg/2ml VIAL) IV SCH (09:22)
[2020-06-04] MEDS: PANTOPRAZOLE 40 MG/10 ML VIAL INJ IV SCH (09:22)
[2020-06-04] MEDS: ENOXAPARIN SOD 100 MG/1 ML SYRINGE SC SCH ×2 (09:22→21:08)
[2020-06-04] MEDS: FLUCONAZOLE 200MG/100ML 100 ML IV SCH (09:23)
[2020-06-04] MEDS: CHOLECALCIFEROL (VITD3) 2,000 UNIT CAP PO SCH (09:24)
[2020-06-04] MEDS: ZINC SULFATE 220mg CAP or TAB PO SCH (09:25)
[2020-06-04] MEDS: ASCORBIC ACID 1,000 MG TAB PO SCH (09:25)
[2020-06-04] MEDS: FOLIC ACID 1 MG TAB PO SCH (09:25)
[2020-06-04] MEDS: POTASSIUM CHL 20 Meq TABLET PO SCH (09:26)
[2020-06-04 12:01] VITALS: BP 149/87
[2020-06-04] MEDS ORDERED: FUROSEMIDE 40 MG/4 ML VIAL IV ONE (12:15)
[2020-06-04] MEDS: POTASSIUM CHL 20MEQ/100ML 100 ML IV SCH ×2 (14:00→18:28)
[2020-06-04 16:01] VITALS: BP 120/68
[2020-06-04] MEDS ORDERED: POTASSIUM CHL 20MEQ/100ML 100 ML IV ONE (18:19)
[2020-06-04] MEDS: ALBUTEROL SULF 2.5 MG/0.5ML(0.5%) NEB SOLN NEB SCH (19:32)
[2020-06-04] MEDS ORDERED: PPN PER PHARMACY IV NR ×8 (20:00)
[2020-06-05] VITALS (16 sets, daily range): BP systolic 131–164; BP diastolic 60–102
[2020-06-05] MEDS: MORPHINE SULF INJ 2 MG/ML SYRINGE 1ML IV PRN ×3 (01:15→18:20)
[2020-06-05] MEDS: InsuLIN REG 1unit/0.01ml Soln (100units/ml) SC SCH ×4 (01:55→17:19)
[2020-06-05 03:10] LABS: Basophils # (auto) 0 10 ^3/uL (0-0.2); Basophils % (auto) 0.1 % (0.0-2.0); Eosinophils # (auto) 0.1 10 ^3/uL (0-0.8); Eosinophils % (auto) 0.5 % (0.0-7.0); Hematocrit 42.4 % (41.0-53.0); Hemoglobin 14.1 g/dL (13.5-17.5); Lymphocytes # (auto) 0.8 10 ^3/uL (0.4-5.4); Mean Corpuscular Hemoglobin 29.2 pg (28.0-32.0); Mean Corpuscular Hgb Conc. 33.3 g/dL (32.0-36.0); Mean Corpuscular Volume 87.6 fL (80.0-100.0); Monocytes # (auto) 0.3 10 ^3/uL (0-1.3); Monocytes % (auto) 2.4 % (0.0-12.0); Neutrophils # (auto) 12.3 10 ^3/uL (1.6-8.6); Platelet Count (auto) 346 10^3/uL (140-450); Red Blood Cells 4.84 10^6/uL (4.5-5.90); White Blood Cell 13.5 10^3/uL (4.4-10.8)
[2020-06-05 03:28] LABS: Albumin 1.9 g/dL (3.4-5.0); Calcium 8.1 mg/dL (8.5-10.1); Magnesium 2.5 mg/dL (1.6-2.6); Potassium 4.1 mmol/L (3.5-5.1)
[2020-06-05 03:32] LABS: Bilirubin, Total 0.6 mg/dL (0.2-1.0); Phosphorus 3.6 mg/dL (2.5-4.90); Total Protein 7.1 g/dL (6.4-8.2)
[2020-06-05] MEDS: VANCOMYCIN 1GM/250ML 250 ML IV SCH ×5 (06:00→19:38)
[2020-06-05] MEDS: ALBUTEROL SULF 2.5 MG/0.5ML(0.5%) NEB SOLN NEB SCH ×2 (06:00→22:43)
[2020-06-05] MEDS: ACCU-CHEK COMFORT CURVE STRIP VI SCH ×4 (06:00→17:18)
[2020-06-05] MEDS: PIPERACILLIN-TAZOB 3.375GM 100 ML IV SCH ×3 (07:00→22:00)
[2020-06-05] MEDS: BUDESONIDE (INHALATION) 0.5 MG/2 ML NEB NEB SCH ×2 (07:15→22:43)
[2020-06-05] MEDS: Glucerna Carbsteady SHAKE Vanilla 8oz PO SCH ×3 (09:49→17:19)
[2020-06-05] MEDS: DexAMETHasone SOD PHOS 10MG/1ML VIAL INJ IV SCH (09:51)
[2020-06-05] MEDS: THIAMINE 100mg/ml INJ (200mg/2ml VIAL) IV SCH (09:51)
[2020-06-05] MEDS: FOLIC ACID 1 MG TAB PO SCH (09:52)
[2020-06-05] MEDS: PANTOPRAZOLE 40 MG/10 ML VIAL INJ IV SCH (09:52)
[2020-06-05] MEDS: FUROSEMIDE 20 MG/2 ML VIAL IV SCH (09:52)
[2020-06-05] MEDS: FLUCONAZOLE 200MG/100ML 100 ML IV SCH (09:52)
[2020-06-05] MEDS: ASCORBIC ACID 1,000 MG TAB PO SCH (09:53)
[2020-06-05] MEDS: POTASSIUM CHL 20 Meq TABLET PO SCH ×2 (09:53→22:00)
[2020-06-05] MEDS: CHOLECALCIFEROL (VITD3) 2,000 UNIT CAP PO SCH (09:53)
[2020-06-05] MEDS: ZINC SULFATE 220mg CAP or TAB PO SCH (09:53)
[2020-06-05] MEDS: ENOXAPARIN SOD 100 MG/1 ML SYRINGE SC SCH ×2 (09:54→22:00)
[2020-06-05] MEDS ORDERED: FUROSEMIDE 40 MG/4 ML VIAL ONE (11:38)
[2020-06-05] MEDS ORDERED: FUROSEMIDE 40 MG/4 ML VIAL IV ONE (11:45)
[2020-06-05] MEDS ORDERED: TPN PER PHARMACY 0 ML IV SCH (13:00)
[2020-06-05] MEDS ORDERED: LABETALOL HCL 5 MG/ML 4ML SYRINGE IV PRN (13:30)
[2020-06-05] MEDS: LORazepam 2MG/ML-1ML VIAL IV PRN (13:50)
[2020-06-05 14:36] LABS: INR 1.12 (0.9-1.15); Partial Thromboplastin Time 32.8 sec (23.0-31.2)
[2020-06-05] MEDS ORDERED: LIDOCAINE 1% (LOCAL ANESTH.) PF 5ml SDV ID ONE (16:00)
[2020-06-05] MEDS: FUROSEMIDE 40 MG/4 ML VIAL IV SCH (18:30)
[2020-06-05] MEDS ORDERED: PPN PER PHARMACY IV NR ×9 (20:00)
[2020-06-05] MEDS: SODIUM CHLOR 0.9% PF (SALINE LOCK) 10ML VIAL/SYR IV SCH (22:00)
[2020-06-06] VITALS (57 sets, daily range): BP systolic 77–222; BP diastolic 35–84
[2020-06-06] MEDS: LORazepam 2MG/ML-1ML VIAL IV PRN ×2 (00:15→09:28)
[2020-06-06] MEDS: ACCU-CHEK COMFORT CURVE STRIP VI SCH ×4 (00:27→18:00)
[2020-06-06] MEDS: PIPERACILLIN-TAZOB 3.375GM 100 ML IV SCH ×3 (06:00→23:10)
[2020-06-06] MEDS: VANCOMYCIN 1GM/250ML 250 ML IV SCH ×4 (06:00→19:26)
[2020-06-06] MEDS: FUROSEMIDE 40 MG/4 ML VIAL IV SCH (06:00)
[2020-06-06] MEDS: InsuLIN REG 1unit/0.01ml Soln (100units/ml) SC SCH ×4 (06:00→18:00)
[2020-06-06] MEDS: BUDESONIDE (INHALATION) 0.5 MG/2 ML NEB NEB SCH ×2 (06:30→22:36)
[2020-06-06] MEDS: ALBUTEROL SULF 2.5 MG/0.5ML(0.5%) NEB SOLN NEB SCH ×3 (06:30→22:36)
[2020-06-06] MEDS: MORPHINE SULF INJ 2 MG/ML SYRINGE 1ML IV PRN (08:13)
[2020-06-06] MEDS: THIAMINE 100mg/ml INJ (200mg/2ml VIAL) IV SCH (09:29)
[2020-06-06] MEDS: DexAMETHasone SOD PHOS 10MG/1ML VIAL INJ IV SCH (09:36)
[2020-06-06] MEDS: FLUCONAZOLE 200MG/100ML 100 ML IV SCH (09:37)
[2020-06-06] MEDS: PANTOPRAZOLE 40 MG/10 ML VIAL INJ IV SCH (09:37)
[2020-06-06] MEDS: SODIUM CHLOR 0.9% PF (SALINE LOCK) 10ML VIAL/SYR IV SCH ×2 (09:38→23:09)
[2020-06-06] MEDS: POTASSIUM CHL 20 Meq TABLET PO SCH (09:39)
[2020-06-06] MEDS: ZINC SULFATE 220mg CAP or TAB PO SCH (09:39)
[2020-06-06] MEDS: ASCORBIC ACID 1,000 MG TAB PO SCH (09:40)
[2020-06-06] MEDS: Glucerna Carbsteady SHAKE Vanilla 8oz PO SCH ×2 (09:41→11:31)
[2020-06-06] MEDS: CHOLECALCIFEROL (VITD3) 2,000 UNIT CAP PO SCH (09:41)
[2020-06-06] MEDS: ENOXAPARIN SOD 100 MG/1 ML SYRINGE SC SCH ×2 (09:41→23:10)
[2020-06-06] MEDS: FOLIC ACID 1 MG TAB PO SCH (09:42)
[2020-06-06 09:55] LABS: Basophils # (auto) 0.1 10 ^3/uL (0-0.2); Basophils % (auto) 0.4 % (0.0-2.0); Eosinophils # (auto) 0.3 10 ^3/uL (0-0.8); Eosinophils % (auto) 2.4 % (0.0-7.0); Hematocrit 41.5 % (41.0-53.0); Hemoglobin 13.9 g/dL (13.5-17.5); Lymphocytes # (auto) 1.3 10 ^3/uL (0.4-5.4); Mean Corpuscular Hemoglobin 29.6 pg (28.0-32.0); Mean Corpuscular Hgb Conc. 33.4 g/dL (32.0-36.0); Mean Corpuscular Volume 88.5 fL (80.0-100.0); Monocytes # (auto) 0.2 10 ^3/uL (0-1.3); Monocytes % (auto) 1.2 % (0.0-12.0); Neutrophils # (auto) 11.3 10 ^3/uL (1.6-8.6); Nucleated Red Blood Cells % 0.2 %; Platelet Count (auto) 307 10^3/uL (140-450); Red Blood Cells 4.69 10^6/uL (4.5-5.90); Red Cell Distribution Width 13.4 % (11.8-14.3); White Blood Cell 13.1 10^3/uL (4.4-10.8)
[2020-06-06 10:22] LABS: Potassium 3.4 mmol/L (3.5-5.1)
[2020-06-06 11:09] LABS: BUN/Creatinine Ratio 27.4; Bilirubin, Total 0.8 mg/dL (0.2-1.0); Calcium 8.2 mg/dL (8.5-10.1); Magnesium 2.4 mg/dL (1.6-2.6); Phosphorus 3.4 mg/dL (2.5-4.90); Total Protein 7.2 g/dL (6.4-8.2)
[2020-06-06] MEDS ORDERED: SUCCINYLCHOLINE CHLORIDE 20 MG/ML 10ML VIAL IV ONE (12:05)
[2020-06-06] MEDS ORDERED: ETOMIDATE (2MG/ML) 20ML VIAL IV ONE (12:05)
[2020-06-06] MEDS ORDERED: PROPOFOL 100 ML IV ONE (12:07)
[2020-06-06] MEDS: PROPOFOL 100 ML IV SCH ×2 (12:30→22:00)
[2020-06-06] MEDS: MIDAZOLAM DRIP 50 mg/50mL 50 ML IV SCH ×2 (12:30→20:00)
[2020-06-06] MEDS ORDERED: MIDAZOLAM DRIP 50 mg/50mL 50 ML IV ONE (12:39)
[2020-06-06] MEDS ORDERED: ROCURONIUM 10MG/ML 10ML VIAL IV ONE (12:45)
[2020-06-06] MEDS: ATRACURIUM BESYLATE 1,000 MG in D5W 5% 150 ML IV SCH (13:15)
[2020-06-06] MEDS: fentaNYL Drip 2500mCg/250mlNS 250 ML IV SCH ×2 (13:30→22:00)
[2020-06-06] MEDS ORDERED: SODIUM CHLORIDE 0.9% 500 ML IV ONE (13:30)
[2020-06-06] MEDS ORDERED: NOREPINEPHRINE 8 MG/250ML KIT 250 ML IV ONE ×2 (13:38→21:03)
[2020-06-06 15:57] LABS: Platelet Count (auto) 576 10^3/uL (140-450)
[2020-06-06 15:59] LABS: Hemoglobin 15.6 g/dL (13.5-17.5); Mean Corpuscular Hemoglobin 30.2 pg (28.0-32.0); Mean Corpuscular Hgb Conc. 33.2 g/dL (32.0-36.0); Mean Corpuscular Volume 90.9 fL (80.0-100.0); Red Blood Cells 5.17 10^6/uL (4.5-5.90); Red Cell Distribution Width 13.8 % (11.8-14.3); White Blood Cell 27.1 10^3/uL (4.4-10.8)
[2020-06-06 16:06] LABS: Basophils % (manual) 0 (0.0-2.0); Blast Cells 0; Eosinophils % (manual) 0 (0-7); Metamyelocytes % 0; Promyelocytes % 0; Reactive Lymphocytes 0
[2020-06-06 16:08] LABS: Albumin 2.1 g/dL (3.4-5.0); Calcium 7.9 mg/dL (8.5-10.1); Potassium 4.8 mmol/L (3.5-5.1)
[2020-06-06 16:14] LABS: BUN/Creatinine Ratio 19.1; Bilirubin, Total 0.9 mg/dL (0.2-1.0); Total Protein 8.1 g/dL (6.4-8.2)
[2020-06-06] MEDS ORDERED: SODIUM CHLORIDE 0.9% 1,000 ML IV SCH (16:30)
[2020-06-06 17:03] LABS: Band Neutrophils % (manual) 1; Lymphocytes % (manual) 9 (10.0-50.0); Monocytes % (manual) 3 (0-12); Myelocytes % 2
[2020-06-06] MEDS: POTASSIUM CHL 20MEQ/100ML 100 ML IV SCH ×2 (19:26→19:27)
[2020-06-06] MEDS ORDERED: TPN PER PHARMACY IV NR ×9 (20:00)
[2020-06-06] MEDS: NOREPINEPHRINE 8 MG/250ML KIT 250 ML IV SCH (21:14)
[2020-06-06] MEDS ORDERED: PHENYLEPHRINE IV 250 ML IV ONE (23:15)
[2020-06-06] MEDS: PHENYLEPHRINE IV 250 ML IV SCH (23:58)
[2020-06-07] VITALS (84 sets, daily range): BP systolic 89–143; BP diastolic 51–89
[2020-06-07] MEDS: InsuLIN REG 1unit/0.01ml Soln (100units/ml) SC SCH ×4 (00:41→18:00)
[2020-06-07] MEDS: VANCOMYCIN 1GM/250ML 250 ML IV SCH ×2 (01:00→06:00)
[2020-06-07] MEDS: NOREPINEPHRINE 8 MG/250ML KIT 250 ML IV SCH ×3 (02:32→21:00)
[2020-06-07] MEDS: PROPOFOL 100 ML IV SCH ×3 (02:44→21:00)
[2020-06-07] MEDS: PHENYLEPHRINE IV 250 ML IV SCH ×2 (04:30→19:51)
[2020-06-07] MEDS: MIDAZOLAM DRIP 50 mg/50mL 50 ML IV SCH ×5 (04:30→23:13)
[2020-06-07] MEDS: ACCU-CHEK COMFORT CURVE STRIP VI SCH ×4 (06:00→17:55)
[2020-06-07] MEDS: PIPERACILLIN-TAZOB 3.375GM 100 ML IV SCH (07:30)
[2020-06-07] MEDS: BUDESONIDE (INHALATION) 0.5 MG/2 ML NEB NEB SCH ×2 (07:45→22:10)
[2020-06-07] MEDS: ALBUTEROL SULF 2.5 MG/0.5ML(0.5%) NEB SOLN NEB SCH ×3 (07:45→22:10)
[2020-06-07 07:58] LABS: Hematocrit 51.5 % (41.0-53.0); Hemoglobin 16.2 g/dL (13.5-17.5); Mean Corpuscular Hemoglobin 29.5 pg (28.0-32.0); Mean Corpuscular Hgb Conc. 31.5 g/dL (32.0-36.0); Mean Corpuscular Volume 93.6 fL (80.0-100.0); Platelet Count (auto) 353 10^3/uL (140-450); Red Cell Distribution Width 13.9 % (11.8-14.3); White Blood Cell 23.8 10^3/uL (4.4-10.8)
[2020-06-07] MEDS: fentaNYL Drip 2500mCg/250mlNS 250 ML IV SCH (07:58)
[2020-06-07 08:07] LABS: Basophils % (manual) 0 (0.0-2.0); Blast Cells 0; Eosinophils % (manual) 0 (0-7); Promyelocytes % 0; Reactive Lymphocytes 0
[2020-06-07 10:07] LABS: Hematocrit 39.7 % (41.0-53.0); Hemoglobin 12.8 g/dL (13.5-17.5); Mean Corpuscular Hemoglobin 29.7 pg (28.0-32.0); Mean Corpuscular Hgb Conc. 32.2 g/dL (32.0-36.0); Mean Corpuscular Volume 92.3 fL (80.0-100.0); Platelet Count (auto) 327 10^3/uL (140-450); Red Cell Distribution Width 13.5 % (11.8-14.3); White Blood Cell 25.5 10^3/uL (4.4-10.8)
[2020-06-07] MEDS: SODIUM CHLOR 0.9% PF (SALINE LOCK) 10ML VIAL/SYR IV SCH ×2 (10:11→21:48)
[2020-06-07] MEDS: ZINC SULFATE 220mg CAP or TAB PO SCH (10:11)
[2020-06-07] MEDS: ASCORBIC ACID 1,000 MG TAB PO SCH (10:11)
[2020-06-07] MEDS: THIAMINE 100mg/ml INJ (200mg/2ml VIAL) IV SCH (10:11)
[2020-06-07] MEDS: CHOLECALCIFEROL (VITD3) 2,000 UNIT CAP PO SCH (10:11)
[2020-06-07] MEDS: DexAMETHasone SOD PHOS 10MG/1ML VIAL INJ IV SCH (10:11)
[2020-06-07] MEDS: PANTOPRAZOLE 40 MG/10 ML VIAL INJ IV SCH (10:11)
[2020-06-07] MEDS: ENOXAPARIN SOD 100 MG/1 ML SYRINGE SC SCH (10:11)
[2020-06-07] MEDS: FOLIC ACID 1 MG TAB PO SCH (10:11)
[2020-06-07 10:14] LABS: Basophils % (manual) 0 (0.0-2.0); Blast Cells 0; Eosinophils % (manual) 0 (0-7); Promyelocytes % 0; Reactive Lymphocytes 0
[2020-06-07] MEDS ORDERED: SODIUM BICARBONATE 8.4 % INJ 50ML VIAL IV ONE ×3 (10:15→21:30)
[2020-06-07] MEDS ORDERED: CALCIUM CHL 100MG/ML 500 MG in D5W 5% 100 ML IV ONE (10:15)
[2020-06-07 10:33] LABS: Albumin 1.5 g/dL (3.4-5.0); Magnesium 2.3 mg/dL (1.6-2.6); Potassium 5.5 mmol/L (3.5-5.1)
[2020-06-07 10:49] LABS: BUN/Creatinine Ratio 12.8; Total Protein 5.6 g/dL (6.4-8.2)
[2020-06-07] MEDS: ENOXAPARIN SOD 120 MG/0.8 ML SYRINGE SC SCH (11:18)
[2020-06-07] MEDS ORDERED: SODIUM BICARBONATE 8.4% INJ 50ML SYRINGE ONE (11:23)
[2020-06-07 11:24] LABS: Calcium 5.4 mg/dL (8.5-10.1)
[2020-06-07 11:32] LABS: Phosphorus 9.5 mg/dL (2.5-4.90)
[2020-06-07 11:54] LABS: Band Neutrophils % (manual) 7; Lymphocytes % (manual) 4 (10.0-50.0); Metamyelocytes % 3; Monocytes % (manual) 4 (0-12); Myelocytes % 3
[2020-06-07] MEDS: SODIUM BICARBONATE 50ML VIAL 100 ML in SOD CHL 0.45% 1,000 ML IV SCH (11:56)
[2020-06-07] MEDS: FLUCONAZOLE 200MG/100ML 100 ML IV SCH (12:01)
[2020-06-07 12:32] LABS: Band Neutrophils % (manual) 3; Metamyelocytes % 1; Myelocytes % 3
[2020-06-07 12:33] LABS: Lymphocytes % (manual) 9 (10.0-50.0); Monocytes % (manual) 4 (0-12)
[2020-06-07] MEDS ORDERED: InsuLIN REG 1unit/0.01ml Soln (100units/ml) IV ONE ×3 (12:45→21:30)
[2020-06-07] MEDS ORDERED: BUMETANIDE 2.5mg/10ml (0.25 mg/ml) INJ IV ONE ×2 (12:45→15:30)
[2020-06-07] MEDS ORDERED: CALCIUM GLUC 4.65meq/50ml D5AE 50 ML IV ONE ×3 (13:00→21:30)
[2020-06-07 13:11] LABS: INR 1.17 (0.9-1.15); Partial Thromboplastin Time 37.1 sec (23.0-31.2)
[2020-06-07] MEDS: PIPERACILLIN-TAZOB 2.25GM 50 ML IV SCH ×2 (13:52→18:00)
[2020-06-07 14:26] LABS: BUN/Creatinine Ratio 11.5; Calcium 6.9 mg/dL (8.5-10.1)
[2020-06-07 14:36] LABS: Bilirubin, Total 1.8 mg/dL (0.2-1.0)
[2020-06-07 14:44] LABS: Potassium 6.5 mmol/L (3.5-5.1)
[2020-06-07] MEDS: ATRACURIUM BESYLATE 1,000 MG in D5W 5% 150 ML IV SCH (15:05)
[2020-06-07] MEDS ORDERED: ALBUTEROL SULF 2.5 MG/0.5ML(0.5%) NEB SOLN NEB ONE (15:30)
[2020-06-07] MEDS ORDERED: TPN PER PHARMACY IV NR ×6 (20:00)
[2020-06-07 20:48] LABS: Calcium 6.8 mg/dL (8.5-10.1)
[2020-06-07 20:57] LABS: BUN/Creatinine Ratio 11.2
[2020-06-07 21:02] LABS: Phosphorus 10.3 mg/dL (2.5-4.90); Potassium 5.9 mmol/L (3.5-5.1)
[2020-06-07] MEDS ORDERED: DEXTROSE (50%) 50ML SYRG IV ONE (21:30)
[2020-06-07] MEDS: LINEZOLID 600MG/300ML 300 ML IV SCH (22:27)
[2020-06-08] VITALS (99 sets, daily range): BP systolic 98–155; BP diastolic 54–88
[2020-06-08] MEDS: InsuLIN REG 1unit/0.01ml Soln (100units/ml) SC SCH ×4 (00:01→17:20)
[2020-06-08] MEDS: PHENYLEPHRINE IV 250 ML IV SCH ×3 (00:15→16:55)
[2020-06-08] MEDS: PIPERACILLIN-TAZOB 2.25GM 50 ML IV SCH ×4 (00:21→17:42)
[2020-06-08] MEDS: PROPOFOL 100 ML IV SCH ×3 (00:53→21:07)
[2020-06-08] MEDS: SODIUM BICARBONATE 50ML VIAL 100 ML in SOD CHL 0.45% 1,000 ML IV SCH (02:21)
[2020-06-08] MEDS: MIDAZOLAM DRIP 50 mg/50mL 50 ML IV SCH ×5 (03:13→23:15)
[2020-06-08 04:47] LABS: Hematocrit 37.5 % (41.0-53.0); Hemoglobin 12.5 g/dL (13.5-17.5); Mean Corpuscular Hemoglobin 29.8 pg (28.0-32.0); Mean Corpuscular Hgb Conc. 33.4 g/dL (32.0-36.0); Mean Corpuscular Volume 89.1 fL (80.0-100.0); Platelet Count (auto) 203 10^3/uL (140-450); Red Blood Cells 4.21 10^6/uL (4.5-5.90); Red Cell Distribution Width 13.7 % (11.8-14.3); White Blood Cell 20.1 10^3/uL (4.4-10.8)
[2020-06-08] MEDS: NOREPINEPHRINE 8 MG/250ML KIT 250 ML IV SCH (04:53)
[2020-06-08 05:00] LABS: INR 1.16 (0.9-1.15); Partial Thromboplastin Time 40.4 sec (23.0-31.2)
[2020-06-08 05:01] LABS: Basophils % (manual) 0 (0.0-2.0); Blast Cells 0; Myelocytes % 0; Promyelocytes % 0; Reactive Lymphocytes 0
[2020-06-08 05:09] LABS: Albumin 1.8 g/dL (3.4-5.0); Calcium 6.9 mg/dL (8.5-10.1); Magnesium 2.7 mg/dL (1.6-2.6); Potassium 5.1 mmol/L (3.5-5.1)
[2020-06-08 05:11] LABS: Lactic Acid w/Reflex 2.7 mmol/L (0.4-2.0)
[2020-06-08 05:20] LABS: BUN/Creatinine Ratio 10.2; Bilirubin, Total 1.1 mg/dL (0.2-1.0); Total Protein 6.4 g/dL (6.4-8.2)
[2020-06-08 05:40] LABS: Phosphorus 8.8 mg/dL (2.5-4.90)
[2020-06-08] MEDS: ALBUTEROL SULF 2.5 MG/0.5ML(0.5%) NEB SOLN NEB SCH ×2 (06:00→19:35)
[2020-06-08 06:15] LABS: Band Neutrophils % (manual) 5; Eosinophils % (manual) 2 (0-7); Lymphocytes % (manual) 4 (10.0-50.0); Metamyelocytes % 1; Monocytes % (manual) 2 (0-12)
[2020-06-08] MEDS: ACCU-CHEK COMFORT CURVE STRIP VI SCH ×4 (06:30→17:20)
[2020-06-08] MEDS ORDERED: BUMETANIDE 2.5mg/10ml (0.25 mg/ml) INJ IV ONE (07:15)
[2020-06-08] MEDS: ASCORBIC ACID 1,000 MG TAB PO SCH (10:00)
[2020-06-08] MEDS: DexAMETHasone SOD PHOS 10MG/1ML VIAL INJ IV SCH ×2 (10:00→15:26)
[2020-06-08] MEDS: LINEZOLID 600MG/300ML 300 ML IV SCH ×2 (10:00→23:14)
[2020-06-08] MEDS: ZINC SULFATE 220mg CAP or TAB PO SCH (10:00)
[2020-06-08] MEDS: PANTOPRAZOLE 40 MG/10 ML VIAL INJ IV SCH ×2 (10:00→15:31)
[2020-06-08] MEDS: CHOLECALCIFEROL (VITD3) 2,000 UNIT CAP PO SCH (10:00)
[2020-06-08] MEDS ORDERED: FLUCONAZOLE 200MG/100ML 100 ML IV SCH (10:00)
[2020-06-08] MEDS: BUDESONIDE (INHALATION) 0.5 MG/2 ML NEB NEB SCH ×2 (10:00→19:35)
[2020-06-08] MEDS: THIAMINE 100mg/ml INJ (200mg/2ml VIAL) IV SCH ×2 (10:00→15:25)
[2020-06-08] MEDS: FLUCONAZOLE 200MG/100ML 100 ML IV SCH ×2 (10:00→15:28)
[2020-06-08] MEDS: FOLIC ACID 1 MG in D5W 5% 50 ML INJ SCH ×2 (10:00→15:24)
[2020-06-08] MEDS: SODIUM CHLOR 0.9% PF (SALINE LOCK) 10ML VIAL/SYR IV SCH ×2 (10:28→23:13)
[2020-06-08] MEDS ORDERED: Glucerna 1.2 Cal 1Liter BOTTLE GT SCH (12:00)
[2020-06-08] MEDS ORDERED: METOCLOPRAMIDE HCL 5MG/ml INJ 2ml VIAL IV ONE (12:00)
[2020-06-08] MEDS: ATRACURIUM BESYLATE 1,000 MG in D5W 5% 150 ML IV SCH (13:15)
[2020-06-08] MEDS: fentaNYL Drip 2500mCg/250mlNS 250 ML IV SCH (13:30)
[2020-06-08] MEDS ORDERED: SODIUM CHL 0.9% 1000 ML BAG XX ONE (14:00)
[2020-06-08] MEDS: ENOXAPARIN SOD 120 MG/0.8 ML SYRINGE SC SCH (15:33)
[2020-06-08] MEDS ORDERED: TPN PER PHARMACY IV NR ×8 (20:00)
[2020-06-08] MEDS: METOCLOPRAMIDE HCL 5MG/ml INJ 2ml VIAL IV SCH (23:13)
[2020-06-09] VITALS (99 sets, daily range): BP systolic 95–126; BP diastolic 53–77
[2020-06-09] MEDS: ACCU-CHEK COMFORT CURVE STRIP VI SCH ×4 (00:19→18:22)
[2020-06-09] MEDS: InsuLIN REG 1unit/0.01ml Soln (100units/ml) SC SCH ×4 (00:51→18:23)
[2020-06-09] MEDS: PIPERACILLIN-TAZOB 2.25GM 50 ML IV SCH ×4 (00:52→18:22)
[2020-06-09] MEDS: PHENYLEPHRINE IV 250 ML IV SCH ×3 (01:15→17:19)
[2020-06-09] MEDS: MIDAZOLAM DRIP 50 mg/50mL 50 ML IV SCH ×2 (03:16→19:42)
[2020-06-09] MEDS: NOREPINEPHRINE 8 MG/250ML KIT 250 ML IV SCH ×2 (03:36→23:16)
[2020-06-09] MEDS: METOCLOPRAMIDE HCL 5MG/ml INJ 2ml VIAL IV SCH ×3 (06:00→22:25)
[2020-06-09] MEDS: ALBUTEROL SULF 2.5 MG/0.5ML(0.5%) NEB SOLN NEB SCH ×3 (06:15→22:00)
[2020-06-09] MEDS: BUDESONIDE (INHALATION) 0.5 MG/2 ML NEB NEB SCH ×2 (06:15→22:00)
[2020-06-09 06:53] LABS: Hematocrit 35.8 % (41.0-53.0); Hemoglobin 12.1 g/dL (13.5-17.5); Mean Corpuscular Hemoglobin 30.5 pg (28.0-32.0); Mean Corpuscular Hgb Conc. 33.7 g/dL (32.0-36.0); Mean Corpuscular Volume 90.6 fL (80.0-100.0); Platelet Count (auto) 240 10^3/uL (140-450); Red Blood Cells 3.95 10^6/uL (4.5-5.90); Red Cell Distribution Width 14.6 % (11.8-14.3); White Blood Cell 18.7 10^3/uL (4.4-10.8)
[2020-06-09 07:09] LABS: Potassium 5.5 mmol/L (3.5-5.1)
[2020-06-09 07:41] LABS: Basophils % (manual) 0 (0.0-2.0); Blast Cells 0; Promyelocytes % 0; Reactive Lymphocytes 0
[2020-06-09 07:42] LABS: Albumin 1.9 g/dL (3.4-5.0); BUN/Creatinine Ratio 8.4; Bilirubin, Total 0.9 mg/dL (0.2-1.0); Calcium 6.7 mg/dL (8.5-10.1); Magnesium 2.6 mg/dL (1.6-2.6)
[2020-06-09 07:59] LABS: Phosphorus 9.6 mg/dL (2.5-4.90)
[2020-06-09 11:09] LABS: Band Neutrophils % (manual) 3; Eosinophils % (manual) 1 (0-7); Lymphocytes % (manual) 2 (10.0-50.0); Metamyelocytes % 1; Monocytes % (manual) 2 (0-12); Myelocytes % 4
[2020-06-09] MEDS: FOLIC ACID 1 MG in D5W 5% 50 ML INJ SCH (11:44)
[2020-06-09] MEDS: DexAMETHasone SOD PHOS 10MG/1ML VIAL INJ IV SCH (11:45)
[2020-06-09] MEDS: PANTOPRAZOLE 40 MG/10 ML VIAL INJ IV SCH (11:45)
[2020-06-09] MEDS: SODIUM CHLOR 0.9% PF (SALINE LOCK) 10ML VIAL/SYR IV SCH ×2 (11:45→22:25)
[2020-06-09] MEDS: FLUCONAZOLE 200MG/100ML 100 ML IV SCH (11:45)
[2020-06-09] MEDS: THIAMINE 100mg/ml INJ (200mg/2ml VIAL) IV SCH (11:45)
[2020-06-09] MEDS: ZINC SULFATE 220mg CAP or TAB PO SCH (11:46)
[2020-06-09] MEDS: LINEZOLID 600MG/300ML 300 ML IV SCH ×2 (11:46→22:25)
[2020-06-09] MEDS: ASCORBIC ACID 1,000 MG TAB PO SCH (11:46)
[2020-06-09] MEDS: CHOLECALCIFEROL (VITD3) 2,000 UNIT CAP PO SCH (11:46)
[2020-06-09] MEDS: ENOXAPARIN SOD 120 MG/0.8 ML SYRINGE SC SCH (11:47)
[2020-06-09] MEDS ORDERED: Nepro With Carb Steady 1 Liter Bottle NG SCH (13:00)
[2020-06-09] MEDS: fentaNYL Drip 2500mCg/250mlNS 250 ML IV SCH (13:30)
[2020-06-09] MEDS ORDERED: SEVELAMER 800 MG TAB PO SCH (14:00)
[2020-06-09] MEDS: CALCIUM ACETATE 667 MG CAP PO SCH ×2 (15:45→22:26)
[2020-06-09] MEDS: SODIUM ZIRCONIUM CYCL 10 GM PAK PO SCH ×2 (15:45→22:26)
[2020-06-09 18:01] LABS: Creatinine, Urine 34 mg/dL (30.0-125.0); Sodium Urine 87 mmol/L (40-220)
[2020-06-09] MEDS ORDERED: TPN PER PHARMACY IV NR ×7 (20:00)
[2020-06-09] MEDS: PROPOFOL 100 ML IV SCH (23:59)
[2020-06-10] VITALS (100 sets, daily range): BP systolic 93–149; BP diastolic 44–87
[2020-06-10] MEDS: MIDAZOLAM DRIP 50 mg/50mL 50 ML IV SCH ×5 (00:30→23:06)
[2020-06-10] MEDS: PIPERACILLIN-TAZOB 2.25GM 50 ML IV SCH ×4 (00:55→18:01)
[2020-06-10] MEDS: ACCU-CHEK COMFORT CURVE STRIP VI SCH ×4 (00:56→18:01)
[2020-06-10] MEDS: InsuLIN REG 1unit/0.01ml Soln (100units/ml) SC SCH ×4 (00:56→18:43)
[2020-06-10] MEDS: PHENYLEPHRINE IV 250 ML IV SCH ×3 (02:15→18:55)
[2020-06-10 05:45] LABS: Hematocrit 36.8 % (41.0-53.0); Hemoglobin 12.1 g/dL (13.5-17.5); Mean Corpuscular Hemoglobin 29.9 pg (28.0-32.0); Mean Corpuscular Hgb Conc. 32.9 g/dL (32.0-36.0); Mean Corpuscular Volume 90.7 fL (80.0-100.0); Platelet Count (auto) 256 10^3/uL (140-450); Red Blood Cells 4.06 10^6/uL (4.5-5.90); Red Cell Distribution Width 14.2 % (11.8-14.3); White Blood Cell 19.3 10^3/uL (4.4-10.8)
[2020-06-10] MEDS: CALCIUM ACETATE 667 MG CAP PO SCH ×3 (06:00→22:25)
[2020-06-10 06:02] LABS: Basophils % (manual) 0 (0.0-2.0); Blast Cells 0; Eosinophils % (manual) 0 (0-7); Promyelocytes % 0; Reactive Lymphocytes 0
[2020-06-10 06:08] LABS: % Iron Saturation 53.8 % (20-55)
[2020-06-10 06:11] LABS: BUN/Creatinine Ratio 9.8; Calcium 7.2 mg/dL (8.5-10.1); Pre Albumin 24.7 mg/dL (20.0-40.0)
[2020-06-10 06:22] LABS: Potassium 6.7 mmol/L (3.5-5.1)
[2020-06-10] MEDS: METOCLOPRAMIDE HCL 5MG/ml INJ 2ml VIAL IV SCH ×3 (06:25→22:24)
[2020-06-10] MEDS: SODIUM ZIRCONIUM CYCL 10 GM PAK PO SCH ×3 (06:26→22:25)
[2020-06-10] MEDS: BUDESONIDE (INHALATION) 0.5 MG/2 ML NEB NEB SCH ×2 (06:52→20:08)
[2020-06-10] MEDS: ALBUTEROL SULF 2.5 MG/0.5ML(0.5%) NEB SOLN NEB SCH ×3 (06:52→20:08)
[2020-06-10] MEDS ORDERED: SODIUM CHL 0.9% 1000 ML BAG XX ONE (07:00)
[2020-06-10 07:19] LABS: Band Neutrophils % (manual) 3; Lymphocytes % (manual) 3 (10.0-50.0); Metamyelocytes % 2; Monocytes % (manual) 4 (0-12); Myelocytes % 5
[2020-06-10] MEDS: PROPOFOL 100 ML IV SCH ×2 (08:41→19:30)
[2020-06-10] MEDS: LINEZOLID 600MG/300ML 300 ML IV SCH ×2 (09:57→22:25)
[2020-06-10] MEDS: FLUCONAZOLE 200MG/100ML 100 ML IV SCH (09:57)
[2020-06-10] MEDS: PANTOPRAZOLE 40 MG/10 ML VIAL INJ IV SCH (09:57)
[2020-06-10] MEDS: SODIUM CHLOR 0.9% PF (SALINE LOCK) 10ML VIAL/SYR IV SCH ×2 (09:58→22:25)
[2020-06-10] MEDS: THIAMINE 100mg/ml INJ (200mg/2ml VIAL) IV SCH (09:58)
[2020-06-10] MEDS: DexAMETHasone SOD PHOS 10MG/1ML VIAL INJ IV SCH (09:58)
[2020-06-10] MEDS: CHOLECALCIFEROL (VITD3) 2,000 UNIT CAP PO SCH (09:59)
[2020-06-10] MEDS: ENOXAPARIN SOD 120 MG/0.8 ML SYRINGE SC SCH (09:59)
[2020-06-10] MEDS: ZINC SULFATE 220mg CAP or TAB PO SCH (09:59)
[2020-06-10] MEDS: ASCORBIC ACID 1,000 MG TAB PO SCH (09:59)
[2020-06-10] MEDS: fentaNYL Drip 2500mCg/250mlNS 250 ML IV SCH (10:36)
[2020-06-10] MEDS ORDERED: FLUCONAZOLE 200MG/100ML 100 ML IV ONE (13:00)
[2020-06-10] MEDS: FOLIC ACID 1 MG in D5W 5% 50 ML INJ SCH (13:49)
[2020-06-10 17:06] LABS: Calcium 7.1 mg/dL (8.5-10.1); Potassium 5.4 mmol/L (3.5-5.1)
[2020-06-11] VITALS (98 sets, daily range): BP systolic 90–161; BP diastolic 44–88
[2020-06-11] MEDS: PIPERACILLIN-TAZOB 2.25GM 50 ML IV SCH ×5 (00:36→23:26)
[2020-06-11] MEDS: ACCU-CHEK COMFORT CURVE STRIP VI SCH ×5 (01:27→23:25)
[2020-06-11] MEDS: InsuLIN REG 1unit/0.01ml Soln (100units/ml) SC SCH ×5 (01:27→23:26)
[2020-06-11] MEDS: PHENYLEPHRINE IV 250 ML IV SCH ×3 (03:15→19:55)
[2020-06-11 05:11] LABS: Hematocrit 33.8 % (41.0-53.0); Hemoglobin 11.2 g/dL (13.5-17.5); Mean Corpuscular Hemoglobin 30.2 pg (28.0-32.0); Mean Corpuscular Hgb Conc. 33.2 g/dL (32.0-36.0); Mean Corpuscular Volume 90.8 fL (80.0-100.0); Platelet Count (auto) 207 10^3/uL (140-450); Red Blood Cells 3.72 10^6/uL (4.5-5.90); Red Cell Distribution Width 13.8 % (11.8-14.3); White Blood Cell 16.5 10^3/uL (4.4-10.8)
[2020-06-11] MEDS: PROPOFOL 100 ML IV SCH ×3 (06:00→15:43)
[2020-06-11] MEDS: SODIUM ZIRCONIUM CYCL 10 GM PAK PO SCH ×3 (06:29→21:55)
[2020-06-11] MEDS: METOCLOPRAMIDE HCL 5MG/ml INJ 2ml VIAL IV SCH ×3 (06:29→21:51)
[2020-06-11] MEDS: CALCIUM ACETATE 667 MG CAP PO SCH ×3 (06:29→21:55)
[2020-06-11 06:36] LABS: Basophils % (manual) 0 (0.0-2.0); Blast Cells 0; Eosinophils % (manual) 0 (0-7); Promyelocytes % 0; Reactive Lymphocytes 0
[2020-06-11] MEDS: MIDAZOLAM DRIP 50 mg/50mL 50 ML IV SCH ×3 (06:52→23:55)
[2020-06-11] MEDS: BUDESONIDE (INHALATION) 0.5 MG/2 ML NEB NEB SCH ×2 (07:00→20:35)
[2020-06-11] MEDS: ALBUTEROL SULF 2.5 MG/0.5ML(0.5%) NEB SOLN NEB SCH ×3 (07:00→20:35)
[2020-06-11 07:02] LABS: Anion Gap 9 (5-15); Carbon Dioxide 27 mmol/L (21-32); Chloride 91 mmol/L (98-107); Potassium 5.4 mmol/L (3.5-5.1); Sodium 127 mmol/L (136-145)
[2020-06-11 07:03] LABS: Blood Urea Nitrogen 59 mg/dL (7-18); Calcium 7.1 mg/dL (8.5-10.1); GFR African American 12 mL/min; GFR Non-African American 10 mL/min; Glucose 292 mg/dL (74-106)
[2020-06-11 07:33] LABS: Albumin 2.2 g/dL (3.4-5.0); Aspartate Aminotransferase 84 U/L (15-37)
[2020-06-11 07:44] LABS: Alanine Aminotransferase 877 U/L (16-61); Alkaline Phosphatase 94 U/L (45-117); Bilirubin, Total 0.9 mg/dL (0.2-1.0); Total Protein 6.7 g/dL (6.4-8.2)
[2020-06-11] MEDS ORDERED: SODIUM BICARBONATE 8.4 % INJ 50ML VIAL IV ONE (09:00)
[2020-06-11] MEDS ORDERED: SODIUM BICARBONATE 50ML VIAL 150 ML in D5W 5% 1,000 ML IV ONE (09:00)
[2020-06-11] MEDS: ENOXAPARIN SOD 120 MG/0.8 ML SYRINGE SC SCH (10:02)
[2020-06-11] MEDS: DexAMETHasone SOD PHOS 10MG/1ML VIAL INJ IV SCH (10:02)
[2020-06-11] MEDS: FLUCONAZOLE 200MG/100ML 100 ML IV SCH (10:02)
[2020-06-11] MEDS: PANTOPRAZOLE 40 MG/10 ML VIAL INJ IV SCH (10:02)
[2020-06-11] MEDS: THIAMINE 100mg/ml INJ (200mg/2ml VIAL) IV SCH (10:03)
[2020-06-11] MEDS: SODIUM CHLOR 0.9% PF (SALINE LOCK) 10ML VIAL/SYR IV SCH ×2 (10:03→21:51)
[2020-06-11] MEDS: ASCORBIC ACID 1,000 MG TAB PO SCH (10:04)
[2020-06-11] MEDS: CHOLECALCIFEROL (VITD3) 2,000 UNIT CAP PO SCH (10:04)
[2020-06-11] MEDS: ZINC SULFATE 220mg CAP or TAB PO SCH (10:04)
[2020-06-11] MEDS: fentaNYL Drip 2500mCg/250mlNS 250 ML IV SCH (10:29)
[2020-06-11 11:03] LABS: Band Neutrophils % (manual) 11; Lymphocytes % (manual) 3 (10.0-50.0); Metamyelocytes % 1; Monocytes % (manual) 4 (0-12); Myelocytes % 2
[2020-06-11] MEDS: LINEZOLID 600MG/300ML 300 ML IV SCH ×2 (11:26→21:55)
[2020-06-11] MEDS: FOLIC ACID 1 MG in D5W 5% 50 ML INJ SCH (15:37)
[2020-06-11] MEDS: NOREPINEPHRINE 8 MG/250ML KIT 250 ML IV SCH (20:11)
[2020-06-11] MEDS: INSULIN LANTUS (GLARGINE) 1 /0.01ml (100units/ml) SC SCH (21:56)
[2020-06-12] VITALS (84 sets, daily range): BP systolic 91–154; BP diastolic 40–82
[2020-06-12] MEDS: PHENYLEPHRINE IV 250 ML IV SCH ×3 (02:50→19:39)
[2020-06-12 06:19] LABS: Basophils # (auto) 0.1 10 ^3/uL (0-0.2); Basophils % (auto) 0.5 % (0.0-2.0); Eosinophils # (auto) 0 10 ^3/uL (0-0.8); Eosinophils % (auto) 0.2 % (0.0-7.0); Hematocrit 31.4 % (41.0-53.0); Hemoglobin 10.6 g/dL (13.5-17.5); Lymphocytes # (auto) 0.6 10 ^3/uL (0.4-5.4); Lymphocytes % (auto) 3.2 % (10.0-50.0); Mean Corpuscular Hemoglobin 30.4 pg (28.0-32.0); Mean Corpuscular Hgb Conc. 33.8 g/dL (32.0-36.0); Mean Corpuscular Volume 90.2 fL (80.0-100.0); Monocytes # (auto) 0.8 10 ^3/uL (0-1.3); Monocytes % (auto) 4.4 % (0.0-12.0); Neutrophils # (auto) 15.8 10 ^3/uL (1.6-8.6); Neutrophils % (auto) 91.7 % (37.0-80.0); Nucleated Red Blood Cells % 0.7 %; Platelet Count (auto) 183 10^3/uL (140-450); Red Blood Cells 3.48 10^6/uL (4.5-5.90); Red Cell Distribution Width 14.2 % (11.8-14.3); White Blood Cell 17.3 10^3/uL (4.4-10.8)
[2020-06-12 06:23] LABS: % Iron Saturation 43.5 % (20-55)
[2020-06-12] MEDS: PIPERACILLIN-TAZOB 2.25GM 50 ML IV SCH ×3 (06:24→18:00)
[2020-06-12] MEDS: METOCLOPRAMIDE HCL 5MG/ml INJ 2ml VIAL IV SCH ×3 (06:24→22:00)
[2020-06-12] MEDS: SODIUM ZIRCONIUM CYCL 10 GM PAK PO SCH ×3 (06:24→22:00)
[2020-06-12] MEDS: CALCIUM ACETATE 667 MG CAP PO SCH ×3 (06:25→22:00)
[2020-06-12] MEDS: ACCU-CHEK COMFORT CURVE STRIP VI SCH ×3 (06:25→18:00)
[2020-06-12] MEDS: InsuLIN REG 1unit/0.01ml Soln (100units/ml) SC SCH ×3 (06:26→18:00)
[2020-06-12] MEDS: INSULIN LANTUS (GLARGINE) 1 /0.01ml (100units/ml) SC SCH ×2 (06:27→22:00)
[2020-06-12 06:32] LABS: Potassium 5.3 mmol/L (3.5-5.1)
[2020-06-12] MEDS: ALBUTEROL SULF 2.5 MG/0.5ML(0.5%) NEB SOLN NEB SCH ×2 (06:45→19:26)
[2020-06-12 06:50] LABS: BUN/Creatinine Ratio 10.6; Calcium 7.2 mg/dL (8.5-10.1)
[2020-06-12] MEDS ORDERED: SODIUM CHL 0.9% 1000 ML BAG XX ONE ×2 (07:00→08:45)
[2020-06-12] MEDS ORDERED: ALBUMIN 25% 100 ML IV PRN (08:45)
[2020-06-12] MEDS: FOLIC ACID 1 MG in D5W 5% 50 ML INJ SCH (10:00)
[2020-06-12] MEDS: ZINC SULFATE 220mg CAP or TAB PO SCH (10:00)
[2020-06-12] MEDS: FLUCONAZOLE 200MG/100ML 100 ML IV SCH (10:00)
[2020-06-12] MEDS: SODIUM CHLOR 0.9% PF (SALINE LOCK) 10ML VIAL/SYR IV SCH ×2 (10:00→22:00)
[2020-06-12] MEDS: THIAMINE 100mg/ml INJ (200mg/2ml VIAL) IV SCH (11:06)
[2020-06-12] MEDS: PANTOPRAZOLE 40 MG/10 ML VIAL INJ IV SCH (11:06)
[2020-06-12] MEDS: DexAMETHasone SOD PHOS 10MG/1ML VIAL INJ IV SCH (11:06)
[2020-06-12] MEDS: CHOLECALCIFEROL (VITD3) 2,000 UNIT CAP PO SCH (11:08)
[2020-06-12] MEDS: ASCORBIC ACID 1,000 MG TAB PO SCH (11:08)
[2020-06-12] MEDS: LINEZOLID 600MG/300ML 300 ML IV SCH ×2 (11:08→22:00)
[2020-06-12] MEDS: ENOXAPARIN SOD 120 MG/0.8 ML SYRINGE SC SCH (11:08)
[2020-06-12] MEDS: BUDESONIDE (INHALATION) 0.5 MG/2 ML NEB NEB SCH ×2 (12:00→19:24)
[2020-06-12] MEDS: fentaNYL Drip 2500mCg/250mlNS 250 ML IV SCH (13:30)
[2020-06-12] MEDS: NOREPINEPHRINE 8 MG/250ML KIT 250 ML IV SCH (19:44)
[2020-06-12] MEDS ORDERED: EPOETIN ALFA 4,000 UNIT/ML VL SC ONE (21:00)
[2020-06-13] VITALS (100 sets, daily range): BP systolic 94–162; BP diastolic 49–87
[2020-06-13] MEDS: PIPERACILLIN-TAZOB 2.25GM 50 ML IV SCH ×3 (01:51→18:06)
[2020-06-13] MEDS: PHENYLEPHRINE IV 250 ML IV SCH ×3 (01:52→21:40)
[2020-06-13 03:50] LABS: Basophils # (auto) 0 10 ^3/uL (0-0.2); Basophils % (auto) 0.1 % (0.0-2.0); Eosinophils # (auto) 0.1 10 ^3/uL (0-0.8); Eosinophils % (auto) 0.4 % (0.0-7.0); Hematocrit 28.7 % (41.0-53.0); Hemoglobin 9.9 g/dL (13.5-17.5); Lymphocytes # (auto) 0.7 10 ^3/uL (0.4-5.4); Lymphocytes % (auto) 5.3 % (10.0-50.0); Mean Corpuscular Hemoglobin 30.6 pg (28.0-32.0); Mean Corpuscular Hgb Conc. 34.6 g/dL (32.0-36.0); Mean Corpuscular Volume 88.6 fL (80.0-100.0); Monocytes # (auto) 0.7 10 ^3/uL (0-1.3); Monocytes % (auto) 4.9 % (0.0-12.0); Neutrophils # (auto) 11.9 10 ^3/uL (1.6-8.6); Neutrophils % (auto) 89.3 % (37.0-80.0); Nucleated Red Blood Cells % 0.2 %; Platelet Count (auto) 168 10^3/uL (140-450); Red Blood Cells 3.24 10^6/uL (4.5-5.90); Red Cell Distribution Width 14.5 % (11.8-14.3); White Blood Cell 13.3 10^3/uL (4.4-10.8)
[2020-06-13 04:16] LABS: Magnesium 2.5 mg/dL (1.6-2.6); Potassium 4.6 mmol/L (3.5-5.1)
[2020-06-13 04:29] LABS: BUN/Creatinine Ratio 11.2; Bilirubin, Total 0.7 mg/dL (0.2-1.0); CRP High Sensitivity 1.22 mg/dL (< 0.3); Calcium 6.9 mg/dL (8.5-10.1)
[2020-06-13 04:48] LABS: Phosphorus 10.1 mg/dL (2.5-4.90)
[2020-06-13] MEDS: CALCIUM ACETATE 667 MG CAP PO SCH ×3 (06:00→22:24)
[2020-06-13] MEDS: METOCLOPRAMIDE HCL 5MG/ml INJ 2ml VIAL IV SCH ×3 (06:00→22:23)
[2020-06-13] MEDS: ACCU-CHEK COMFORT CURVE STRIP VI SCH ×5 (06:00→23:24)
[2020-06-13] MEDS: InsuLIN REG 1unit/0.01ml Soln (100units/ml) SC SCH ×5 (06:00→23:24)
[2020-06-13] MEDS: SODIUM ZIRCONIUM CYCL 10 GM PAK PO SCH (06:00)
[2020-06-13] MEDS: ALBUTEROL SULF 2.5 MG/0.5ML(0.5%) NEB SOLN NEB SCH ×3 (06:40→18:55)
[2020-06-13] MEDS: BUDESONIDE (INHALATION) 0.5 MG/2 ML NEB NEB SCH ×2 (06:40→18:55)
[2020-06-13] MEDS: INSULIN LANTUS (GLARGINE) 1 /0.01ml (100units/ml) SC SCH ×2 (07:00→22:00)
[2020-06-13] MEDS: FLUCONAZOLE 200MG/100ML 100 ML IV SCH (09:16)
[2020-06-13] MEDS: THIAMINE 100mg/ml INJ (200mg/2ml VIAL) IV SCH (10:00)
[2020-06-13] MEDS: PANTOPRAZOLE 40 MG/10 ML VIAL INJ IV SCH (10:00)
[2020-06-13] MEDS: ZINC SULFATE 220mg CAP or TAB PO SCH (10:00)
[2020-06-13] MEDS: ASCORBIC ACID 1,000 MG TAB PO SCH (10:00)
[2020-06-13] MEDS: DexAMETHasone SOD PHOS 10MG/1ML VIAL INJ IV SCH (10:00)
[2020-06-13] MEDS: SODIUM CHLOR 0.9% PF (SALINE LOCK) 10ML VIAL/SYR IV SCH ×2 (10:00→22:23)
[2020-06-13] MEDS: LINEZOLID 600MG/300ML 300 ML IV SCH ×2 (10:00→22:24)
[2020-06-13] MEDS: ENOXAPARIN SOD 120 MG/0.8 ML SYRINGE SC SCH (10:00)
[2020-06-13] MEDS: CHOLECALCIFEROL (VITD3) 2,000 UNIT CAP PO SCH (10:00)
[2020-06-13] MEDS: FOLIC ACID 1 MG in D5W 5% 50 ML INJ SCH (10:00)
[2020-06-13] MEDS: fentaNYL Drip 2500mCg/250mlNS 250 ML IV SCH (13:30)
[2020-06-13] MEDS: PROPOFOL 100 ML IV SCH (13:30)
[2020-06-13] MEDS: OCTREOTIDE ACETATE 100 MCG/ML VL SUBCUT SCH ×2 (14:00→22:24)
[2020-06-13] MEDS: MIDAZOLAM DRIP 50 mg/50mL 50 ML IV SCH (14:07)
[2020-06-13] MEDS: NOREPINEPHRINE 8 MG/250ML KIT 250 ML IV SCH (21:15)
[2020-06-14] VITALS (98 sets, daily range): BP systolic 93–178; BP diastolic 51–122
[2020-06-14 00:48] LABS: Basophils # (auto) 0.1 10 ^3/uL (0-0.2); Basophils % (auto) 0.6 % (0.0-2.0); Eosinophils # (auto) 0 10 ^3/uL (0-0.8); Eosinophils % (auto) 0.1 % (0.0-7.0); Hematocrit 26.3 % (41.0-53.0); Lymphocytes # (auto) 0.5 10 ^3/uL (0.4-5.4); Lymphocytes % (auto) 3.9 % (10.0-50.0); Mean Corpuscular Hemoglobin 30.4 pg (28.0-32.0); Mean Corpuscular Hgb Conc. 34.2 g/dL (32.0-36.0); Monocytes # (auto) 0.3 10 ^3/uL (0-1.3); Monocytes % (auto) 2.8 % (0.0-12.0); Neutrophils # (auto) 10.9 10 ^3/uL (1.6-8.6); Neutrophils % (auto) 92.6 % (37.0-80.0); Nucleated Red Blood Cells % 0.2 %; Platelet Count (auto) 147 10^3/uL (140-450); Red Blood Cells 2.96 10^6/uL (4.5-5.90); Red Cell Distribution Width 14.7 % (11.8-14.3); White Blood Cell 11.8 10^3/uL (4.4-10.8)
[2020-06-14] MEDS: PIPERACILLIN-TAZOB 2.25GM 50 ML IV SCH ×3 (00:54→18:06)
[2020-06-14 01:01] LABS: Albumin 1.9 g/dL (3.4-5.0); BUN/Creatinine Ratio 12.5; Calcium 6.3 mg/dL (8.5-10.1); Magnesium 2.9 mg/dL (1.6-2.6); Potassium 5.4 mmol/L (3.5-5.1)
[2020-06-14 01:04] LABS: Bilirubin, Total 0.7 mg/dL (0.2-1.0); Total Protein 5.6 g/dL (6.4-8.2)
[2020-06-14] MEDS: PHENYLEPHRINE IV 250 ML IV SCH ×2 (06:15→14:35)
[2020-06-14] MEDS: BUDESONIDE (INHALATION) 0.5 MG/2 ML NEB NEB SCH ×2 (06:25→18:30)
[2020-06-14] MEDS: ALBUTEROL SULF 2.5 MG/0.5ML(0.5%) NEB SOLN NEB SCH ×3 (06:25→18:30)
[2020-06-14] MEDS: METOCLOPRAMIDE HCL 5MG/ml INJ 2ml VIAL IV SCH ×3 (06:49→22:00)
[2020-06-14] MEDS: CALCIUM ACETATE 667 MG CAP PO SCH ×3 (06:50→22:00)
[2020-06-14] MEDS: ACCU-CHEK COMFORT CURVE STRIP VI SCH ×3 (06:50→17:53)
[2020-06-14] MEDS: OCTREOTIDE ACETATE 100 MCG/ML VL SUBCUT SCH ×3 (06:50→22:00)
[2020-06-14] MEDS: InsuLIN REG 1unit/0.01ml Soln (100units/ml) SC SCH ×4 (06:51→22:00)
[2020-06-14] MEDS: INSULIN LANTUS (GLARGINE) 1 /0.01ml (100units/ml) SC SCH ×2 (06:53→22:00)
[2020-06-14] MEDS: FLUCONAZOLE 200MG/100ML 100 ML IV SCH (09:25)
[2020-06-14] MEDS: ZINC SULFATE 220mg CAP or TAB PO SCH (09:28)
[2020-06-14] MEDS: CHOLECALCIFEROL (VITD3) 2,000 UNIT CAP PO SCH (09:28)
[2020-06-14] MEDS: THIAMINE 100mg/ml INJ (200mg/2ml VIAL) IV SCH (09:28)
[2020-06-14] MEDS: DexAMETHasone SOD PHOS 10MG/1ML VIAL INJ IV SCH (09:28)
[2020-06-14] MEDS: PANTOPRAZOLE 40 MG/10 ML VIAL INJ IV SCH (09:28)
[2020-06-14] MEDS: ASCORBIC ACID 1,000 MG TAB PO SCH (09:29)
[2020-06-14] MEDS: ENOXAPARIN SOD 120 MG/0.8 ML SYRINGE SC SCH (09:29)
[2020-06-14] MEDS: LINEZOLID 600MG/300ML 300 ML IV SCH ×2 (09:31→22:00)
[2020-06-14] MEDS: SODIUM CHLOR 0.9% PF (SALINE LOCK) 10ML VIAL/SYR IV SCH ×2 (09:32→22:00)
[2020-06-14] MEDS: FOLIC ACID 1 MG in D5W 5% 50 ML INJ SCH (10:30)
[2020-06-14] MEDS: PROPOFOL 100 ML IV SCH ×2 (12:47→17:30)
[2020-06-14] MEDS: MIDAZOLAM DRIP 50 mg/50mL 50 ML IV SCH ×2 (12:47→16:53)
[2020-06-14] MEDS: fentaNYL Drip 2500mCg/250mlNS 250 ML IV SCH ×2 (13:30→17:00)
[2020-06-14] MEDS: SODIUM ZIRCONIUM CYCL 10 GM PAK GT SCH ×2 (14:00→22:00)
[2020-06-15] VITALS (94 sets, daily range): BP systolic 77–180; BP diastolic 37–84
[2020-06-15] MEDS: PIPERACILLIN-TAZOB 2.25GM 50 ML IV SCH ×3 (03:11→17:59)
[2020-06-15 04:18] LABS: Albumin 1.9 g/dL (3.4-5.0); Anion Gap 21 (5-15); Calcium 6.7 mg/dL (8.5-10.1); Carbon Dioxide 20 mmol/L (21-32); Chloride 83 mmol/L (98-107); Glucose 178 mg/dL (74-106); Magnesium 3.3 mg/dL (1.6-2.6); Sodium 124 mmol/L (136-145)
[2020-06-15 04:23] LABS: Alanine Aminotransferase 183 U/L (16-61); Alkaline Phosphatase 54 U/L (45-117); Aspartate Aminotransferase 29 U/L (15-37); BUN/Creatinine Ratio 13.5; Bilirubin, Total 0.7 mg/dL (0.2-1.0); GFR African American 7 mL/min; GFR Non-African American 6 mL/min; Total Protein 5.7 g/dL (6.4-8.2)
[2020-06-15 04:27] LABS: Hematocrit 25.5 % (41.0-53.0); Hemoglobin 8.6 g/dL (13.5-17.5); Mean Corpuscular Hemoglobin 29.9 pg (28.0-32.0); Mean Corpuscular Hgb Conc. 33.5 g/dL (32.0-36.0); Mean Corpuscular Volume 89.3 fL (80.0-100.0); Platelet Count (auto) 186 10^3/uL (140-450); Red Blood Cells 2.86 10^6/uL (4.5-5.90); Red Cell Distribution Width 14.4 % (11.8-14.3); White Blood Cell 15.7 10^3/uL (4.4-10.8)
[2020-06-15 04:32] LABS: Blood Urea Nitrogen 142 mg/dL (7-18); Phosphorus > 9.0 mg/dL (2.5-4.90); Potassium 6.6 mmol/L (3.5-5.1)
[2020-06-15 04:46] LABS: Basophils % (manual) 0 (0.0-2.0); Blast Cells 0; Eosinophils % (manual) 0 (0-7); Promyelocytes % 0; Reactive Lymphocytes 0
[2020-06-15 05:22] LABS: Band Neutrophils % (manual) 5; Lymphocytes % (manual) 3 (10.0-50.0); Metamyelocytes % 1; Monocytes % (manual) 3 (0-12); Myelocytes % 1
[2020-06-15] MEDS: SODIUM ZIRCONIUM CYCL 10 GM PAK GT SCH ×2 (06:00→14:02)
[2020-06-15] MEDS ORDERED: DEXTROSE (50%) 50ML SYRG IV ONE (06:00)
[2020-06-15] MEDS ORDERED: InsuLIN REG 1unit/0.01ml Soln (100units/ml) IV ONE (06:00)
[2020-06-15] MEDS ORDERED: CALCIUM GLUC 4.65meq/50ml D5AE 50 ML IV ONE (06:00)
[2020-06-15] MEDS: METOCLOPRAMIDE HCL 5MG/ml INJ 2ml VIAL IV SCH ×3 (06:00→22:58)
[2020-06-15] MEDS: CALCIUM ACETATE 667 MG CAP PO SCH ×3 (06:00→22:00)
[2020-06-15] MEDS ORDERED: SODIUM BICARBONATE 8.4 % INJ 50ML VIAL IV ONE (06:00)
[2020-06-15] MEDS: OCTREOTIDE ACETATE 100 MCG/ML VL SUBCUT SCH ×3 (06:23→23:01)
[2020-06-15] MEDS: ACCU-CHEK COMFORT CURVE STRIP VI SCH ×4 (06:23→17:58)
[2020-06-15] MEDS: INSULIN LANTUS (GLARGINE) 1 /0.01ml (100units/ml) SC SCH ×2 (06:25→22:59)
[2020-06-15] MEDS: InsuLIN REG 1unit/0.01ml Soln (100units/ml) SC SCH ×3 (06:25→17:58)
[2020-06-15] MEDS ORDERED: SODIUM CHL 0.9% 1000 ML BAG XX ONE (07:00)
[2020-06-15] MEDS: ALBUTEROL SULF 2.5 MG/0.5ML(0.5%) NEB SOLN NEB SCH ×2 (07:32→13:58)
[2020-06-15] MEDS: BUDESONIDE (INHALATION) 0.5 MG/2 ML NEB NEB SCH (07:32)
[2020-06-15] MEDS ORDERED: ALBUMIN 25% 100 ML IV SCH (07:45)
[2020-06-15] MEDS: MIDAZOLAM DRIP 50 mg/50mL 50 ML IV SCH ×3 (09:05→16:00)
[2020-06-15] MEDS: fentaNYL Drip 2500mCg/250mlNS 250 ML IV SCH (09:06)
[2020-06-15] MEDS: PROPOFOL 100 ML IV SCH ×3 (10:38→17:59)
[2020-06-15] MEDS: ENOXAPARIN SOD 120 MG/0.8 ML SYRINGE SC SCH (11:02)
[2020-06-15] MEDS: FOLIC ACID 1 MG in D5W 5% 50 ML INJ SCH (11:09)
[2020-06-15] MEDS: CHOLECALCIFEROL (VITD3) 2,000 UNIT CAP PO SCH (11:10)
[2020-06-15] MEDS: ZINC SULFATE 220mg CAP or TAB PO SCH (11:10)
[2020-06-15] MEDS: PANTOPRAZOLE 40 MG/10 ML VIAL INJ IV SCH (11:10)
[2020-06-15] MEDS: ASCORBIC ACID 1,000 MG TAB PO SCH (11:10)
[2020-06-15] MEDS: DexAMETHasone SOD PHOS 10MG/1ML VIAL INJ IV SCH (11:10)
[2020-06-15] MEDS: THIAMINE 100mg/ml INJ (200mg/2ml VIAL) IV SCH (11:10)
[2020-06-15] MEDS: SODIUM CHLOR 0.9% PF (SALINE LOCK) 10ML VIAL/SYR IV SCH ×2 (11:11→22:58)
[2020-06-15] MEDS: FLUCONAZOLE 200MG/100ML 100 ML IV SCH (11:33)
[2020-06-15] MEDS ORDERED: ERGOCALCIFEROL 50,000 UNIT(1.25MG) CAP PO SCH (12:00)
[2020-06-15 12:13] LABS: Hepatitis B Core IgM Negative; Hepatitis B Core Total AB Negative; Hepatitis B Surface Antigen Negative (Negative)
[2020-06-15] MEDS: NOREPINEPHRINE 8 MG/250ML KIT 250 ML IV SCH ×2 (12:52→21:15)
[2020-06-15] MEDS: PHENYLEPHRINE IV 250 ML IV SCH ×3 (14:01→23:55)
[2020-06-15] MEDS: LINEZOLID 600MG/300ML 300 ML IV SCH ×2 (14:01→22:58)
[2020-06-15 16:02] LABS: BUN/Creatinine Ratio 12.6; Calcium 6.7 mg/dL (8.5-10.1); Potassium 4.4 mmol/L (3.5-5.1)
[2020-06-15] MEDS ORDERED: EPOETIN ALFA 10,000 UNIT/1 ML VIAL SC ONE (21:00)
[2020-06-16] VITALS (99 sets, daily range): BP systolic 89–174; BP diastolic 42–80
[2020-06-16] MEDS: ACCU-CHEK COMFORT CURVE STRIP VI SCH ×4 (00:20→17:36)
[2020-06-16] MEDS: MIDAZOLAM DRIP 50 mg/50mL 50 ML IV SCH ×4 (00:21→22:21)
[2020-06-16] MEDS: InsuLIN REG 1unit/0.01ml Soln (100units/ml) SC SCH ×4 (00:22→17:36)
[2020-06-16] MEDS: fentaNYL Drip 2500mCg/250mlNS 250 ML IV SCH ×2 (00:51→13:07)
[2020-06-16] MEDS: PIPERACILLIN-TAZOB 2.25GM 50 ML IV SCH ×3 (02:30→18:17)
[2020-06-16] MEDS: METOCLOPRAMIDE HCL 5MG/ml INJ 2ml VIAL IV SCH ×3 (04:55→22:00)
[2020-06-16] MEDS: CALCIUM ACETATE 667 MG CAP PO SCH ×3 (04:55→22:00)
[2020-06-16] MEDS: OCTREOTIDE ACETATE 100 MCG/ML VL SUBCUT SCH ×3 (04:56→22:00)
[2020-06-16] MEDS: NOREPINEPHRINE 8 MG/250ML KIT 250 ML IV SCH (05:00)
[2020-06-16] MEDS: INSULIN LANTUS (GLARGINE) 1 /0.01ml (100units/ml) SC SCH ×2 (05:59→22:00)
[2020-06-16] MEDS: ALBUTEROL SULF 2.5 MG/0.5ML(0.5%) NEB SOLN NEB SCH ×3 (06:32→22:25)
[2020-06-16] MEDS: BUDESONIDE (INHALATION) 0.5 MG/2 ML NEB NEB SCH ×2 (06:32→22:25)
[2020-06-16] MEDS: PHENYLEPHRINE IV 250 ML IV SCH ×2 (08:15→16:35)
[2020-06-16] MEDS: DexAMETHasone SOD PHOS 10MG/1ML VIAL INJ IV SCH (08:56)
[2020-06-16] MEDS: THIAMINE 100mg/ml INJ (200mg/2ml VIAL) IV SCH (08:56)
[2020-06-16] MEDS: PANTOPRAZOLE 40 MG/10 ML VIAL INJ IV SCH (08:57)
[2020-06-16] MEDS: FLUCONAZOLE 200MG/100ML 100 ML IV SCH (08:57)
[2020-06-16] MEDS: SODIUM CHLOR 0.9% PF (SALINE LOCK) 10ML VIAL/SYR IV SCH ×2 (08:59→22:00)
[2020-06-16] MEDS: ZINC SULFATE 220mg CAP or TAB PO SCH (09:00)
[2020-06-16] MEDS: ASCORBIC ACID 1,000 MG TAB PO SCH (09:00)
[2020-06-16] MEDS: CHOLECALCIFEROL (VITD3) 2,000 UNIT CAP PO SCH (09:01)
[2020-06-16] MEDS: ENOXAPARIN SOD 100 MG/1 ML SYRINGE SC SCH (09:01)
[2020-06-16] MEDS: FOLIC ACID 1 MG in D5W 5% 50 ML INJ SCH (10:00)
[2020-06-16 10:43] LABS: Hemoglobin 8.4 g/dL (13.5-17.5)
[2020-06-16 10:44] LABS: Hematocrit 24.8 % (41.0-53.0); Mean Corpuscular Hemoglobin 30.5 pg (28.0-32.0); Mean Corpuscular Hgb Conc. 33.9 g/dL (32.0-36.0); Mean Corpuscular Volume 90.1 fL (80.0-100.0); Platelet Count (auto) 214 10^3/uL (140-450); Red Blood Cells 2.75 10^6/uL (4.5-5.90); Red Cell Distribution Width 15.1 % (11.8-14.3); White Blood Cell 18.8 10^3/uL (4.4-10.8)
[2020-06-16] MEDS: LINEZOLID 600MG/300ML 300 ML IV SCH ×2 (10:47→22:00)
[2020-06-16] MEDS: PROPOFOL 100 ML IV SCH ×3 (10:53→21:10)
[2020-06-16 10:57] LABS: BUN/Creatinine Ratio 13.8; Calcium 6.2 mg/dL (8.5-10.1); Potassium 5.5 mmol/L (3.5-5.1)
[2020-06-16 11:00] LABS: Band Neutrophils % (manual) 0; Basophils % (manual) 0 (0.0-2.0); Blast Cells 0; Metamyelocytes % 0; Myelocytes % 0; Promyelocytes % 0; Reactive Lymphocytes 0
[2020-06-16 12:07] LABS: Eosinophils % (manual) 1 (0-7); Lymphocytes % (manual) 5 (10.0-50.0); Monocytes % (manual) 3 (0-12)
[2020-06-16] MEDS: CALCIUM ACETATE 667 MG CAP NG SCH ×2 (14:00→22:00)
[2020-06-16] MEDS: DexAMETHasone SOD PHOS 4 MG/1ML SDV INJ IV SCH (22:00)
[2020-06-17] VITALS (96 sets, daily range): BP systolic 94–167; BP diastolic 48–89
[2020-06-17] MEDS: PHENYLEPHRINE IV 250 ML IV SCH ×3 (00:55→17:06)
[2020-06-17] MEDS: fentaNYL Drip 2500mCg/250mlNS 250 ML IV SCH ×2 (01:54→15:03)
[2020-06-17] MEDS: PIPERACILLIN-TAZOB 2.25GM 50 ML IV SCH ×3 (01:56→17:05)
[2020-06-17 04:29] LABS: White Blood Cell 11.4 10^3/uL (4.4-10.8)
[2020-06-17 04:32] LABS: Hematocrit 21.5 % (41.0-53.0); Hemoglobin 7.3 g/dL (13.5-17.5); Mean Corpuscular Hemoglobin 30.8 pg (28.0-32.0); Mean Corpuscular Hgb Conc. 34.1 g/dL (32.0-36.0); Mean Corpuscular Volume 90.4 fL (80.0-100.0); Platelet Count (auto) 158 10^3/uL (140-450); Red Blood Cells 2.38 10^6/uL (4.5-5.90)
[2020-06-17 04:43] LABS: Band Neutrophils % (manual) 0; Basophils % (manual) 0 (0.0-2.0); Blast Cells 0; Eosinophils % (manual) 0 (0-7); Metamyelocytes % 0; Promyelocytes % 0; Reactive Lymphocytes 0
[2020-06-17 04:57] LABS: Albumin 2.2 g/dL (3.4-5.0); Calcium 6.2 mg/dL (8.5-10.1)
[2020-06-17 04:59] LABS: BUN/Creatinine Ratio 13.9
[2020-06-17 05:02] LABS: Bilirubin, Total 0.6 mg/dL (0.2-1.0); Total Protein 5.3 g/dL (6.4-8.2)
[2020-06-17 05:24] LABS: Lymphocytes % (manual) 1 (10.0-50.0); Monocytes % (manual) 2 (0-12); Myelocytes % 1
[2020-06-17 05:35] LABS: Potassium 6.4 mmol/L (3.5-5.1)
[2020-06-17] MEDS: CALCIUM ACETATE 667 MG CAP PO SCH ×3 (06:00→21:37)
[2020-06-17] MEDS: METOCLOPRAMIDE HCL 5MG/ml INJ 2ml VIAL IV SCH ×3 (06:00→21:37)
[2020-06-17] MEDS: ACCU-CHEK COMFORT CURVE STRIP VI SCH ×4 (06:00→18:07)
[2020-06-17] MEDS: CALCIUM ACETATE 667 MG CAP NG SCH ×3 (06:00→21:37)
[2020-06-17] MEDS: InsuLIN REG 1unit/0.01ml Soln (100units/ml) SC SCH ×4 (06:00→18:07)
[2020-06-17] MEDS: OCTREOTIDE ACETATE 100 MCG/ML VL SUBCUT SCH ×3 (06:00→21:37)
[2020-06-17] MEDS ORDERED: SODIUM CHL 0.9% 1000 ML BAG XX ONE (07:00)
[2020-06-17] MEDS: ALBUTEROL SULF 2.5 MG/0.5ML(0.5%) NEB SOLN NEB SCH ×2 (07:15→15:10)
[2020-06-17] MEDS: BUDESONIDE (INHALATION) 0.5 MG/2 ML NEB NEB SCH (07:15)
[2020-06-17] MEDS: DexAMETHasone SOD PHOS 4 MG/1ML SDV INJ IV SCH ×2 (08:39→21:36)
[2020-06-17] MEDS: FLUCONAZOLE 200MG/100ML 100 ML IV SCH (08:39)
[2020-06-17] MEDS: ZINC SULFATE 220mg CAP or TAB PO SCH (08:40)
[2020-06-17] MEDS: SODIUM CHLOR 0.9% PF (SALINE LOCK) 10ML VIAL/SYR IV SCH ×2 (08:40→21:37)
[2020-06-17] MEDS: THIAMINE 100mg/ml INJ (200mg/2ml VIAL) IV SCH (08:40)
[2020-06-17] MEDS: PANTOPRAZOLE 40 MG/10 ML VIAL INJ IV SCH (08:40)
[2020-06-17] MEDS: ASCORBIC ACID 1,000 MG TAB PO SCH (08:41)
[2020-06-17] MEDS: CHOLECALCIFEROL (VITD3) 2,000 UNIT CAP PO SCH (08:42)
[2020-06-17] MEDS: ENOXAPARIN SOD 100 MG/1 ML SYRINGE SC SCH (08:43)
[2020-06-17] MEDS: FOLIC ACID 1 MG in D5W 5% 50 ML INJ SCH (10:00)
[2020-06-17] MEDS: INSULIN LANTUS (GLARGINE) 1 /0.01ml (100units/ml) SC SCH ×2 (10:02→21:51)
[2020-06-17] MEDS: MIDAZOLAM DRIP 50 mg/50mL 50 ML IV SCH ×2 (10:18→19:58)
[2020-06-17] MEDS ORDERED: CALCIUM GLUC 4.65meq/50ml D5AE 50 ML IV ONE (10:45)
[2020-06-17] MEDS ORDERED: SODIUM FERR GLUC 62.5MG/5ML 125 MG in SODIUM CHL 0.9% 100 ML IV ONE (10:45)
[2020-06-17] MEDS ORDERED: SODIUM FERR GLUC 62.5MG/5ML 125 MG in SODIUM CHL 0.9% 100 ML IV SCH (12:00)
[2020-06-17] MEDS: LINEZOLID 600MG/300ML 300 ML IV SCH ×2 (12:36→21:37)
[2020-06-17] MEDS: PROPOFOL 100 ML IV SCH ×2 (13:00→19:58)
[2020-06-17] MEDS: NOREPINEPHRINE 8 MG/250ML KIT 250 ML IV SCH (19:56)
[2020-06-17] MEDS ORDERED: EPOETIN ALFA 10,000 UNIT/1 ML VIAL SC ONE (21:00)
[2020-06-18] VITALS (100 sets, daily range): BP systolic 94–166; BP diastolic 43–86
[2020-06-18] MEDS: PHENYLEPHRINE IV 250 ML IV SCH (01:55)
[2020-06-18] MEDS: PIPERACILLIN-TAZOB 2.25GM 50 ML IV SCH ×3 (02:00→18:30)
[2020-06-18] MEDS: METOCLOPRAMIDE HCL 5MG/ml INJ 2ml VIAL IV SCH ×3 (06:00→21:21)
[2020-06-18] MEDS: ACCU-CHEK COMFORT CURVE STRIP VI SCH ×4 (06:00→17:23)
[2020-06-18] MEDS: InsuLIN REG 1unit/0.01ml Soln (100units/ml) SC SCH ×4 (06:00→17:23)
[2020-06-18] MEDS: CALCIUM ACETATE 667 MG CAP NG SCH ×3 (06:00→21:27)
[2020-06-18] MEDS: OCTREOTIDE ACETATE 100 MCG/ML VL SUBCUT SCH ×3 (06:00→21:20)
[2020-06-18] MEDS: CALCIUM ACETATE 667 MG CAP PO SCH ×3 (06:00→21:27)
[2020-06-18] MEDS: INSULIN LANTUS (GLARGINE) 1 /0.01ml (100units/ml) SC SCH ×2 (06:40→21:29)
[2020-06-18] MEDS: fentaNYL Drip 2500mCg/250mlNS 250 ML IV SCH ×2 (06:45→20:41)
[2020-06-18 07:28] LABS: Hemoglobin 7.3 g/dL (13.5-17.5)
[2020-06-18 07:29] LABS: Hematocrit 20.8 % (41.0-53.0); Mean Corpuscular Hemoglobin 31.4 pg (28.0-32.0); Mean Corpuscular Hgb Conc. 34.9 g/dL (32.0-36.0); Platelet Count (auto) 165 10^3/uL (140-450); Red Blood Cells 2.32 10^6/uL (4.5-5.90); Red Cell Distribution Width 15.4 % (11.8-14.3); White Blood Cell 11.4 10^3/uL (4.4-10.8)
[2020-06-18 07:43] LABS: Potassium 5.1 mmol/L (3.5-5.1)
[2020-06-18 07:44] LABS: Basophils % (manual) 0 (0.0-2.0); Blast Cells 0; Eosinophils % (manual) 0 (0-7); Promyelocytes % 0; Reactive Lymphocytes 0
[2020-06-18 08:10] LABS: BUN/Creatinine Ratio 14.6; Calcium 6.5 mg/dL (8.5-10.1)
[2020-06-18 08:58] LABS: Band Neutrophils % (manual) 3; Lymphocytes % (manual) 7 (10.0-50.0); Metamyelocytes % 1; Monocytes % (manual) 4 (0-12); Myelocytes % 3
[2020-06-18] MEDS: SODIUM CHLOR 0.9% PF (SALINE LOCK) 10ML VIAL/SYR IV SCH ×2 (09:30→21:22)
[2020-06-18] MEDS: FLUCONAZOLE 200MG/100ML 100 ML IV SCH (09:30)
[2020-06-18] MEDS: THIAMINE 100mg/ml INJ (200mg/2ml VIAL) IV SCH (09:30)
[2020-06-18] MEDS: PANTOPRAZOLE 40 MG/10 ML VIAL INJ IV SCH (09:32)
[2020-06-18] MEDS: FOLIC ACID 1 MG in D5W 5% 50 ML INJ SCH (09:32)
[2020-06-18] MEDS: DexAMETHasone SOD PHOS 4 MG/1ML SDV INJ IV SCH ×2 (09:32→21:20)
[2020-06-18] MEDS: ENOXAPARIN SOD 100 MG/1 ML SYRINGE SC SCH (09:33)
[2020-06-18] MEDS: ASCORBIC ACID 1,000 MG TAB PO SCH (09:33)
[2020-06-18] MEDS: ZINC SULFATE 220mg CAP or TAB PO SCH (09:33)
[2020-06-18] MEDS: CHOLECALCIFEROL (VITD3) 2,000 UNIT CAP PO SCH (09:33)
[2020-06-18] MEDS: LINEZOLID 600MG/300ML 300 ML IV SCH ×2 (11:00→21:23)
[2020-06-18] MEDS ORDERED: ENOXAPARIN SOD 80 MG/0.8ML SYRINGE SC ONE (11:30)
[2020-06-18] MEDS: SODIUM FERR GLUC 62.5MG/5ML 125 MG in SODIUM CHL 0.9% 100 ML IV SCH (12:00)
[2020-06-18] MEDS: NOREPINEPHRINE 8 MG/250ML KIT 250 ML IV SCH (21:15)
[2020-06-18] MEDS: BUDESONIDE (INHALATION) 0.5 MG/2 ML NEB NEB SCH (22:00)
[2020-06-18] MEDS: ALBUTEROL SULF 2.5 MG/0.5ML(0.5%) NEB SOLN NEB SCH (22:00)
[2020-06-18] MEDS: MIDAZOLAM DRIP 50 mg/50mL 50 ML IV SCH (23:38)
[2020-06-19] VITALS (101 sets, daily range): BP systolic 85–142; BP diastolic 42–71
[2020-06-19] MEDS: PIPERACILLIN-TAZOB 2.25GM 50 ML IV SCH ×3 (04:28→17:46)
[2020-06-19] MEDS: MIDAZOLAM DRIP 50 mg/50mL 50 ML IV SCH ×3 (04:30→18:00)
[2020-06-19] MEDS: CALCIUM ACETATE 667 MG CAP NG SCH (06:00)
[2020-06-19] MEDS: OCTREOTIDE ACETATE 100 MCG/ML VL SUBCUT SCH (06:00)
[2020-06-19] MEDS: ACCU-CHEK COMFORT CURVE STRIP VI SCH ×4 (06:00→17:46)
[2020-06-19] MEDS: InsuLIN REG 1unit/0.01ml Soln (100units/ml) SC SCH ×4 (06:00→17:47)
[2020-06-19] MEDS: METOCLOPRAMIDE HCL 5MG/ml INJ 2ml VIAL IV SCH (06:10)
[2020-06-19] MEDS: CALCIUM ACETATE 667 MG CAP PO SCH ×2 (06:15→14:00)
[2020-06-19] MEDS ORDERED: SODIUM CHL 0.9% 1000 ML BAG XX ONE (07:00)
[2020-06-19] MEDS: INSULIN LANTUS (GLARGINE) 1 /0.01ml (100units/ml) SC SCH ×2 (07:00→22:00)
[2020-06-19] MEDS: fentaNYL Drip 2500mCg/250mlNS 250 ML IV SCH ×2 (08:00→20:43)
[2020-06-19 08:10] LABS: Calcium 6.7 mg/dL (8.5-10.1); Potassium 5.5 mmol/L (3.5-5.1)
[2020-06-19 08:14] LABS: BUN/Creatinine Ratio 15.1
[2020-06-19] MEDS ORDERED: ALBUMIN 25% 100 ML IV ONE (09:00)
[2020-06-19] MEDS: ASCORBIC ACID 1,000 MG TAB PO SCH (10:00)
[2020-06-19] MEDS: DexAMETHasone SOD PHOS 4 MG/1ML SDV INJ IV SCH (10:00)
[2020-06-19] MEDS: ZINC SULFATE 220mg CAP or TAB PO SCH (10:00)
[2020-06-19] MEDS: PANTOPRAZOLE 40 MG/10 ML VIAL INJ IV SCH (10:00)
[2020-06-19] MEDS: CHOLECALCIFEROL (VITD3) 2,000 UNIT CAP PO SCH (10:00)
[2020-06-19] MEDS: LINEZOLID 600MG/300ML 300 ML IV SCH (10:00)
[2020-06-19] MEDS ORDERED: ENOXAPARIN SOD 80 MG/0.8ML SYRINGE SC SCH (10:00)
[2020-06-19] MEDS: FOLIC ACID 1 MG in D5W 5% 50 ML INJ SCH (10:00)
[2020-06-19] MEDS: THIAMINE 100mg/ml INJ (200mg/2ml VIAL) IV SCH (10:00)
[2020-06-19] MEDS: FLUCONAZOLE 200MG/100ML 100 ML IV SCH (10:00)
[2020-06-19] MEDS: SODIUM CHLOR 0.9% PF (SALINE LOCK) 10ML VIAL/SYR IV SCH (10:00)
[2020-06-19] MEDS: BUDESONIDE (INHALATION) 0.5 MG/2 ML NEB NEB SCH ×2 (10:59→22:37)
[2020-06-19] MEDS: ALBUTEROL SULF 2.5 MG/0.5ML(0.5%) NEB SOLN NEB SCH ×2 (10:59→22:37)
[2020-06-19] MEDS: SODIUM FERR GLUC 62.5MG/5ML 125 MG in SODIUM CHL 0.9% 100 ML IV SCH (12:00)
[2020-06-19] MEDS: PROPOFOL 100 ML IV SCH (13:30)
[2020-06-19] MEDS ORDERED: EPOETIN ALFA 10,000 UNIT/1 ML VIAL SC ONE (21:00)
[2020-06-19] MEDS: NOREPINEPHRINE 8 MG/250ML KIT 250 ML IV SCH (21:15)
[2020-06-20] VITALS (98 sets, daily range): BP systolic 95–173; BP diastolic 48–82
[2020-06-20] MEDS: DexAMETHasone SOD PHOS 4 MG/1ML SDV INJ IV SCH ×3 (00:36→22:28)
[2020-06-20] MEDS: LINEZOLID 600MG/300ML 300 ML IV SCH ×3 (00:37→22:29)
[2020-06-20] MEDS: SODIUM CHLOR 0.9% PF (SALINE LOCK) 10ML VIAL/SYR IV SCH ×3 (00:37→22:29)
[2020-06-20] MEDS: CALCIUM ACETATE 667 MG CAP PO SCH ×4 (00:38→22:30)
[2020-06-20] MEDS: PIPERACILLIN-TAZOB 2.25GM 50 ML IV SCH ×3 (04:27→18:16)
[2020-06-20] MEDS: MIDAZOLAM DRIP 50 mg/50mL 50 ML IV SCH ×3 (04:29→22:20)
[2020-06-20] MEDS: ACCU-CHEK COMFORT CURVE STRIP VI SCH ×4 (06:00→17:59)
[2020-06-20] MEDS: InsuLIN REG 1unit/0.01ml Soln (100units/ml) SC SCH ×4 (06:00→18:00)
[2020-06-20] MEDS: ALBUTEROL SULF 2.5 MG/0.5ML(0.5%) NEB SOLN NEB SCH ×3 (06:34→22:00)
[2020-06-20] MEDS: BUDESONIDE (INHALATION) 0.5 MG/2 ML NEB NEB SCH ×2 (06:34→22:00)
[2020-06-20 07:24] LABS: Hematocrit 17.6 % (41.0-53.0); Mean Corpuscular Hemoglobin 31.1 pg (28.0-32.0); Mean Corpuscular Hgb Conc. 34.3 g/dL (32.0-36.0); Mean Corpuscular Volume 90.5 fL (80.0-100.0); Platelet Count (auto) 187 10^3/uL (140-450); Red Blood Cells 1.94 10^6/uL (4.5-5.90); Red Cell Distribution Width 15.8 % (11.8-14.3); White Blood Cell 13.6 10^3/uL (4.4-10.8)
[2020-06-20] MEDS: INSULIN LANTUS (GLARGINE) 1 /0.01ml (100units/ml) SC SCH ×2 (07:29→22:31)
[2020-06-20 07:38] LABS: BUN/Creatinine Ratio 15.4; Calcium 7.3 mg/dL (8.5-10.1); Potassium 4.2 mmol/L (3.5-5.1)
[2020-06-20 08:16] LABS: Basophils % (manual) 0 (0.0-2.0); Blast Cells 0; Eosinophils % (manual) 0 (0-7); Metamyelocytes % 0; Promyelocytes % 0; Reactive Lymphocytes 0
[2020-06-20] MEDS: FLUCONAZOLE 200MG/100ML 100 ML IV SCH (09:56)
[2020-06-20] MEDS: CHOLECALCIFEROL (VITD3) 2,000 UNIT CAP PO SCH (09:57)
[2020-06-20] MEDS: ASCORBIC ACID 1,000 MG TAB PO SCH (09:57)
[2020-06-20] MEDS: ENOXAPARIN SOD 40 MG/0.4 ML SYRINGE SC SCH (10:00)
[2020-06-20] MEDS: ZINC SULFATE 220mg CAP or TAB PO SCH (10:05)
[2020-06-20] MEDS ORDERED: FAMOTIDINE (10MG/ML) 2ML VL IV ONE (10:30)
[2020-06-20] MEDS: THIAMINE 100mg/ml INJ (200mg/2ml VIAL) IV SCH (11:14)
[2020-06-20 12:06] LABS: Band Neutrophils % (manual) 5; Lymphocytes % (manual) 5 (10.0-50.0); Monocytes % (manual) 3 (0-12); Myelocytes % 1
[2020-06-20] MEDS: fentaNYL Drip 2500mCg/250mlNS 250 ML IV SCH (12:40)
[2020-06-20] MEDS: PROPOFOL 100 ML IV SCH ×2 (13:28→23:30)
[2020-06-20] MEDS: FOLIC ACID 1 MG in D5W 5% 50 ML INJ SCH (16:58)
[2020-06-20] MEDS: SODIUM FERR GLUC 62.5MG/5ML 125 MG in SODIUM CHL 0.9% 100 ML IV SCH (17:30)
[2020-06-20] MEDS: NOREPINEPHRINE 8 MG/250ML KIT 250 ML IV SCH (21:15)
[2020-06-21] VITALS (99 sets, daily range): BP systolic 97–142; BP diastolic 44–78
[2020-06-21] MEDS: fentaNYL Drip 2500mCg/250mlNS 250 ML IV SCH ×2 (01:21→14:05)
[2020-06-21] MEDS: MIDAZOLAM DRIP 50 mg/50mL 50 ML IV SCH ×3 (01:21→14:02)
[2020-06-21 03:05] LABS: Hematocrit 27.1 % (41.0-53.0); Mean Corpuscular Hemoglobin 30.8 pg (28.0-32.0); Mean Corpuscular Hgb Conc. 33.4 g/dL (32.0-36.0); Mean Corpuscular Volume 92.3 fL (80.0-100.0); Platelet Count (auto) 236 10^3/uL (140-450); Red Blood Cells 2.93 10^6/uL (4.5-5.90); Red Cell Distribution Width 15.5 % (11.8-14.3); White Blood Cell 25.4 10^3/uL (4.4-10.8)
[2020-06-21] MEDS: PIPERACILLIN-TAZOB 2.25GM 50 ML IV SCH ×3 (03:05→18:02)
[2020-06-21 03:08] LABS: Basophils % (manual) 0 (0.0-2.0); Blast Cells 0; Eosinophils % (manual) 0 (0-7); Metamyelocytes % 0; Myelocytes % 0; Promyelocytes % 0; Reactive Lymphocytes 0
[2020-06-21 03:23] LABS: Albumin 2.5 g/dL (3.4-5.0); BUN/Creatinine Ratio 15.4; Calcium 7.4 mg/dL (8.5-10.1); Potassium 4.7 mmol/L (3.5-5.1)
[2020-06-21 03:26] LABS: Bilirubin, Total 0.6 mg/dL (0.2-1.0); Total Protein 6.3 g/dL (6.4-8.2)
[2020-06-21 05:16] LABS: Band Neutrophils % (manual) 1; Lymphocytes % (manual) 7 (10.0-50.0); Monocytes % (manual) 6 (0-12)
[2020-06-21] MEDS: ACCU-CHEK COMFORT CURVE STRIP VI SCH ×4 (06:00→18:02)
[2020-06-21] MEDS: CALCIUM ACETATE 667 MG CAP PO SCH ×3 (06:00→21:40)
[2020-06-21] MEDS: INSULIN LANTUS (GLARGINE) 1 /0.01ml (100units/ml) SC SCH ×2 (07:00→21:41)
[2020-06-21] MEDS: InsuLIN REG 1unit/0.01ml Soln (100units/ml) SC SCH ×4 (07:00→18:02)
[2020-06-21] MEDS: BUDESONIDE (INHALATION) 0.5 MG/2 ML NEB NEB SCH ×2 (07:26→19:14)
[2020-06-21] MEDS: ALBUTEROL SULF 2.5 MG/0.5ML(0.5%) NEB SOLN NEB SCH ×3 (07:26→19:14)
[2020-06-21] MEDS: ZINC SULFATE 220mg CAP or TAB PO SCH (08:36)
[2020-06-21] MEDS: THIAMINE 100mg/ml INJ (200mg/2ml VIAL) IV SCH (08:36)
[2020-06-21] MEDS: CHOLECALCIFEROL (VITD3) 2,000 UNIT CAP PO SCH (08:36)
[2020-06-21] MEDS: FLUCONAZOLE 200MG/100ML 100 ML IV SCH (08:37)
[2020-06-21] MEDS: ENOXAPARIN SOD 40 MG/0.4 ML SYRINGE SC SCH (08:37)
[2020-06-21] MEDS: DexAMETHasone SOD PHOS 4 MG/1ML SDV INJ IV SCH ×2 (08:37→21:25)
[2020-06-21] MEDS: ASCORBIC ACID 1,000 MG TAB PO SCH (08:37)
[2020-06-21] MEDS: SODIUM CHLOR 0.9% PF (SALINE LOCK) 10ML VIAL/SYR IV SCH ×2 (08:41→21:25)
[2020-06-21] MEDS: PROPOFOL 100 ML IV SCH ×2 (08:42→14:02)
[2020-06-21] MEDS: LINEZOLID 600MG/300ML 300 ML IV SCH ×2 (10:00→21:25)
[2020-06-21] MEDS: FAMOTIDINE (10MG/ML) 2ML VL IV SCH (10:00)
[2020-06-21] MEDS: SODIUM FERR GLUC 62.5MG/5ML 125 MG in SODIUM CHL 0.9% 100 ML IV SCH (12:00)
[2020-06-21] MEDS: FOLIC ACID 1 MG in D5W 5% 50 ML INJ SCH (12:12)
[2020-06-21 13:34] LABS: INR 0.99 (0.9-1.15); Partial Thromboplastin Time 32.3 sec (23.0-31.2)
[2020-06-21] MEDS: Nepro With Carb Steady 1 Liter Bottle NG SCH (14:03)
[2020-06-21] MEDS: NOREPINEPHRINE 8 MG/250ML KIT 250 ML IV SCH (21:15)
[2020-06-22] VITALS (95 sets, daily range): BP systolic 90–145; BP diastolic 40–73
[2020-06-22 01:55] LABS: Hemoglobin 7.3 g/dL (13.5-17.5); Platelet Count (auto) 164 10^3/uL (140-450)
[2020-06-22 01:57] LABS: Hematocrit 21.3 % (41.0-53.0); Mean Corpuscular Hemoglobin 31.3 pg (28.0-32.0); Mean Corpuscular Hgb Conc. 34.2 g/dL (32.0-36.0); Mean Corpuscular Volume 91.7 fL (80.0-100.0); Red Blood Cells 2.33 10^6/uL (4.5-5.90); Red Cell Distribution Width 16.2 % (11.8-14.3); White Blood Cell 14.8 10^3/uL (4.4-10.8)
[2020-06-22] MEDS: PIPERACILLIN-TAZOB 2.25GM 50 ML IV SCH ×3 (02:00→19:00)
[2020-06-22 02:04] LABS: Band Neutrophils % (manual) 0; Basophils % (manual) 0 (0.0-2.0); Blast Cells 0; Eosinophils % (manual) 0 (0-7); Monocytes % (manual) 0 (0-12); Myelocytes % 0; Promyelocytes % 0; Reactive Lymphocytes 0
[2020-06-22 02:11] LABS: Albumin 2.2 g/dL (3.4-5.0); BUN/Creatinine Ratio 15.8; Potassium 5.2 mmol/L (3.5-5.1)
[2020-06-22 02:14] LABS: Bilirubin, Total 0.4 mg/dL (0.2-1.0); Total Protein 5.4 g/dL (6.4-8.2)
[2020-06-22 02:49] LABS: % Iron Saturation 90.5 % (20-55)
[2020-06-22 03:14] LABS: Lymphocytes % (manual) 3 (10.0-50.0); Metamyelocytes % 3
[2020-06-22] MEDS: InsuLIN REG 1unit/0.01ml Soln (100units/ml) SC SCH ×5 (05:32→23:55)
[2020-06-22] MEDS: CALCIUM ACETATE 667 MG CAP PO SCH ×3 (05:33→20:49)
[2020-06-22] MEDS: ACCU-CHEK COMFORT CURVE STRIP VI SCH ×5 (05:33→23:55)
[2020-06-22] MEDS ORDERED: SODIUM CHL 0.9% 1000 ML BAG XX ONE (07:00)
[2020-06-22] MEDS: INSULIN LANTUS (GLARGINE) 1 /0.01ml (100units/ml) SC SCH ×2 (07:00→21:16)
[2020-06-22] MEDS: ALBUTEROL SULF 2.5 MG/0.5ML(0.5%) NEB SOLN NEB SCH ×3 (07:25→18:45)
[2020-06-22] MEDS: BUDESONIDE (INHALATION) 0.5 MG/2 ML NEB NEB SCH ×2 (07:25→18:45)
[2020-06-22] MEDS: PROPOFOL 100 ML IV SCH ×2 (09:33→18:33)
[2020-06-22] MEDS: Nepro With Carb Steady 1 Liter Bottle NG SCH (09:34)
[2020-06-22] MEDS: MIDAZOLAM DRIP 50 mg/50mL 50 ML IV SCH ×2 (09:34→18:33)
[2020-06-22] MEDS: LINEZOLID 600MG/300ML 300 ML IV SCH ×2 (10:00→22:00)
[2020-06-22] MEDS: DexAMETHasone SOD PHOS 4 MG/1ML SDV INJ IV SCH ×2 (10:00→20:48)
[2020-06-22] MEDS: ZINC SULFATE 220mg CAP or TAB PO SCH (10:00)
[2020-06-22] MEDS: ENOXAPARIN SOD 40 MG/0.4 ML SYRINGE SC SCH (10:00)
[2020-06-22] MEDS: SODIUM CHLOR 0.9% PF (SALINE LOCK) 10ML VIAL/SYR IV SCH ×2 (10:00→20:48)
[2020-06-22] MEDS: fentaNYL Drip 2500mCg/250mlNS 250 ML IV SCH (14:02)
[2020-06-22] MEDS: SODIUM FERR GLUC 62.5MG/5ML 125 MG in SODIUM CHL 0.9% 100 ML IV SCH (14:52)
[2020-06-22] MEDS: FOLIC ACID 1 MG in D5W 5% 50 ML INJ SCH (18:30)
[2020-06-22] MEDS: FLUCONAZOLE 200MG/100ML 100 ML IV SCH (18:32)
[2020-06-22] MEDS: THIAMINE 100mg/ml INJ (200mg/2ml VIAL) IV SCH (18:37)
[2020-06-22] MEDS: CHOLECALCIFEROL (VITD3) 2,000 UNIT CAP PO SCH (18:37)
[2020-06-22] MEDS: ASCORBIC ACID 1,000 MG TAB PO SCH (18:37)
[2020-06-22] MEDS ORDERED: EPOETIN ALFA 10,000 UNIT/1 ML VIAL SC ONE (21:00)
[2020-06-22] MEDS: NOREPINEPHRINE 8 MG/250ML KIT 250 ML IV SCH (21:15)
[2020-06-23] VITALS (97 sets, daily range): BP systolic 100–159; BP diastolic 45–90
[2020-06-23] MEDS: PIPERACILLIN-TAZOB 2.25GM 50 ML IV SCH ×3 (02:00→18:22)
[2020-06-23 04:33] LABS: Hemoglobin 7.3 g/dL (13.5-17.5); Mean Corpuscular Hemoglobin 31.6 pg (28.0-32.0); Red Blood Cells 2.31 10^6/uL (4.5-5.90)
[2020-06-23 04:35] LABS: Hematocrit 21.1 % (41.0-53.0); Mean Corpuscular Hgb Conc. 34.6 g/dL (32.0-36.0); Mean Corpuscular Volume 91.4 fL (80.0-100.0); Platelet Count (auto) 150 10^3/uL (140-450); Red Cell Distribution Width 15.9 % (11.8-14.3); White Blood Cell 12.8 10^3/uL (4.4-10.8)
[2020-06-23 04:49] LABS: Potassium 4.4 mmol/L (3.5-5.1)
[2020-06-23 04:53] LABS: BUN/Creatinine Ratio 15.5; Calcium 7.3 mg/dL (8.5-10.1); Phosphorus 7.4 mg/dL (2.5-4.90)
[2020-06-23 05:16] LABS: Basophils % (manual) 0 (0.0-2.0); Blast Cells 0; Eosinophils % (manual) 0 (0-7); Promyelocytes % 0; Reactive Lymphocytes 0
[2020-06-23 05:54] LABS: Lymphocytes % (manual) 6 (10.0-50.0); Metamyelocytes % 2; Myelocytes % 1
[2020-06-23 05:55] LABS: Band Neutrophils % (manual) 3; Monocytes % (manual) 3 (0-12)
[2020-06-23] MEDS: INSULIN LANTUS (GLARGINE) 1 /0.01ml (100units/ml) SC SCH ×2 (06:02→21:16)
[2020-06-23] MEDS: ACCU-CHEK COMFORT CURVE STRIP VI SCH ×4 (06:02→23:20)
[2020-06-23] MEDS: CALCIUM ACETATE 667 MG CAP PO SCH ×3 (06:02→21:39)
[2020-06-23] MEDS: InsuLIN REG 1unit/0.01ml Soln (100units/ml) SC SCH ×4 (06:02→23:20)
[2020-06-23] MEDS: BUDESONIDE (INHALATION) 0.5 MG/2 ML NEB NEB SCH ×2 (06:19→22:08)
[2020-06-23] MEDS: ALBUTEROL SULF 2.5 MG/0.5ML(0.5%) NEB SOLN NEB SCH ×2 (06:19→22:08)
[2020-06-23] MEDS: FLUCONAZOLE 200MG/100ML 100 ML IV SCH (08:42)
[2020-06-23] MEDS: ENOXAPARIN SOD 40 MG/0.4 ML SYRINGE SC SCH (10:00)
[2020-06-23] MEDS: THIAMINE 100mg/ml INJ (200mg/2ml VIAL) IV SCH (10:05)
[2020-06-23] MEDS: CHOLECALCIFEROL (VITD3) 2,000 UNIT CAP PO SCH (10:05)
[2020-06-23] MEDS: DexAMETHasone SOD PHOS 4 MG/1ML SDV INJ IV SCH (10:05)
[2020-06-23] MEDS: SODIUM CHLOR 0.9% PF (SALINE LOCK) 10ML VIAL/SYR IV SCH ×2 (10:05→21:35)
[2020-06-23] MEDS: ZINC SULFATE 220mg CAP or TAB PO SCH (10:05)
[2020-06-23] MEDS: FAMOTIDINE (10MG/ML) 2ML VL IV SCH (10:05)
[2020-06-23] MEDS: ASCORBIC ACID 1,000 MG TAB PO SCH (10:05)
[2020-06-23] MEDS: LINEZOLID 600MG/300ML 300 ML IV SCH ×2 (11:19→22:00)
[2020-06-23] MEDS: MIDAZOLAM DRIP 50 mg/50mL 50 ML IV SCH ×2 (12:35→15:53)
[2020-06-23] MEDS: FOLIC ACID 1 MG in D5W 5% 50 ML INJ SCH (13:31)
[2020-06-23] MEDS: SODIUM FERR GLUC 62.5MG/5ML 125 MG in SODIUM CHL 0.9% 100 ML IV SCH (13:39)
[2020-06-23] MEDS: PROPOFOL 100 ML IV SCH (14:21)
[2020-06-23] MEDS: fentaNYL Drip 2500mCg/250mlNS 250 ML IV SCH (15:53)
[2020-06-23] MEDS: NOREPINEPHRINE 8 MG/250ML KIT 250 ML IV SCH (21:15)
[2020-06-24] VITALS (102 sets, daily range): BP systolic 97–111; BP diastolic 46–58
[2020-06-24 03:52] LABS: Hematocrit 21.5 % (41.0-53.0)
[2020-06-24 03:54] LABS: Hemoglobin 7.3 g/dL (13.5-17.5); Mean Corpuscular Hemoglobin 31.8 pg (28.0-32.0); Mean Corpuscular Volume 93.4 fL (80.0-100.0); Platelet Count (auto) 140 10^3/uL (140-450); Red Cell Distribution Width 16.4 % (11.8-14.3)
[2020-06-24 04:09] LABS: Basophils % (manual) 0 (0.0-2.0); Blast Cells 0; Calcium 7.2 mg/dL (8.5-10.1); Myelocytes % 0; Potassium 4.6 mmol/L (3.5-5.1); Promyelocytes % 0; Reactive Lymphocytes 0
[2020-06-24 04:13] LABS: Bilirubin, Total 0.4 mg/dL (0.2-1.0); Total Protein 5.3 g/dL (6.4-8.2)
[2020-06-24 05:02] LABS: Band Neutrophils % (manual) 7; Eosinophils % (manual) 1 (0-7); Lymphocytes % (manual) 4 (10.0-50.0); Metamyelocytes % 1; Monocytes % (manual) 4 (0-12)
[2020-06-24] MEDS: PIPERACILLIN-TAZOB 2.25GM 50 ML IV SCH ×5 (06:00→23:14)
[2020-06-24] MEDS: ALBUTEROL SULF 2.5 MG/0.5ML(0.5%) NEB SOLN NEB SCH ×3 (06:00→19:27)
[2020-06-24] MEDS: ACCU-CHEK COMFORT CURVE STRIP VI SCH ×4 (06:01→23:52)
[2020-06-24] MEDS: CALCIUM ACETATE 667 MG CAP PO SCH ×3 (06:01→20:54)
[2020-06-24] MEDS: INSULIN LANTUS (GLARGINE) 1 /0.01ml (100units/ml) SC SCH ×2 (06:19→21:43)
[2020-06-24] MEDS: InsuLIN REG 1unit/0.01ml Soln (100units/ml) SC SCH ×4 (06:19→23:50)
[2020-06-24] MEDS: FOLIC ACID 1 MG in D5W 5% 50 ML INJ SCH (08:37)
[2020-06-24] MEDS: THIAMINE 100mg/ml INJ (200mg/2ml VIAL) IV SCH (08:37)
[2020-06-24] MEDS: SODIUM CHLOR 0.9% PF (SALINE LOCK) 10ML VIAL/SYR IV SCH ×2 (08:38→20:49)
[2020-06-24] MEDS: CHOLECALCIFEROL (VITD3) 2,000 UNIT CAP PO SCH (08:38)
[2020-06-24] MEDS: ASCORBIC ACID 1,000 MG TAB PO SCH (08:38)
[2020-06-24] MEDS: ZINC SULFATE 220mg CAP or TAB PO SCH (08:38)
[2020-06-24] MEDS: DexAMETHasone SOD PHOS 4 MG/1ML SDV INJ IV SCH (08:38)
[2020-06-24] MEDS: FLORASTOR (S. BOULARDII) 250 MG CAP PO SCH (08:38)
[2020-06-24] MEDS: ENOXAPARIN SOD 40 MG/0.4 ML SYRINGE SC SCH (08:38)
[2020-06-24] MEDS: FLUCONAZOLE 200MG/100ML 100 ML IV SCH (09:13)
[2020-06-24] MEDS: BUDESONIDE (INHALATION) 0.5 MG/2 ML NEB NEB SCH ×2 (10:00→19:27)
[2020-06-24] MEDS: LINEZOLID 600MG/300ML 300 ML IV SCH ×2 (10:02→20:49)
[2020-06-24] MEDS: SODIUM FERR GLUC 62.5MG/5ML 125 MG in SODIUM CHL 0.9% 100 ML IV SCH (13:00)
[2020-06-24] MEDS: MIDAZOLAM DRIP 50 mg/50mL 50 ML IV SCH ×2 (16:46→20:14)
[2020-06-25] VITALS (98 sets, daily range): BP systolic 103–147; BP diastolic 50–74
[2020-06-25] MEDS: fentaNYL Drip 2500mCg/250mlNS 250 ML IV SCH (02:51)
[2020-06-25] MEDS: ACCU-CHEK COMFORT CURVE STRIP VI SCH ×3 (06:00→17:01)
[2020-06-25] MEDS: CALCIUM ACETATE 667 MG CAP PO SCH ×3 (06:00→21:43)
[2020-06-25] MEDS: PIPERACILLIN-TAZOB 2.25GM 50 ML IV SCH ×3 (06:00→22:00)
[2020-06-25] MEDS: NOREPINEPHRINE 8 MG/250ML KIT 250 ML IV SCH ×2 (06:00→21:15)
[2020-06-25] MEDS: InsuLIN REG 1unit/0.01ml Soln (100units/ml) SC SCH ×3 (06:00→17:01)
[2020-06-25 06:07] LABS: Hemoglobin 7.2 g/dL (13.5-17.5)
[2020-06-25 06:10] LABS: Hematocrit 20.5 % (41.0-53.0); Mean Corpuscular Hemoglobin 32.5 pg (28.0-32.0); Mean Corpuscular Hgb Conc. 35.3 g/dL (32.0-36.0); Mean Corpuscular Volume 91.9 fL (80.0-100.0); Platelet Count (auto) 121 10^3/uL (140-450); Red Blood Cells 2.23 10^6/uL (4.5-5.90); Red Cell Distribution Width 16.5 % (11.8-14.3); White Blood Cell 11.1 10^3/uL (4.4-10.8)
[2020-06-25 06:29] LABS: Potassium 5.1 mmol/L (3.5-5.1)
[2020-06-25] MEDS: ALBUTEROL SULF 2.5 MG/0.5ML(0.5%) NEB SOLN NEB SCH ×3 (06:31→20:30)
[2020-06-25] MEDS: BUDESONIDE (INHALATION) 0.5 MG/2 ML NEB NEB SCH ×2 (06:31→20:30)
[2020-06-25 06:48] LABS: Calcium 7.1 mg/dL (8.5-10.1)
[2020-06-25 06:52] LABS: Phosphorus 9.4 mg/dL (2.5-4.90)
[2020-06-25 06:59] LABS: Basophils % (manual) 0 (0.0-2.0); Blast Cells 0; Myelocytes % 0; Promyelocytes % 0; Reactive Lymphocytes 0
[2020-06-25] MEDS: INSULIN LANTUS (GLARGINE) 1 /0.01ml (100units/ml) SC SCH ×2 (07:00→21:36)
[2020-06-25] MEDS ORDERED: SODIUM CHL 0.9% 1000 ML BAG XX ONE (07:00)
[2020-06-25] MEDS: FOLIC ACID 1 MG in D5W 5% 50 ML INJ SCH (10:00)
[2020-06-25] MEDS: ENOXAPARIN SOD 40 MG/0.4 ML SYRINGE SC SCH ×2 (10:00→11:31)
[2020-06-25] MEDS: THIAMINE 100mg/ml INJ (200mg/2ml VIAL) IV SCH (10:02)
[2020-06-25] MEDS: DexAMETHasone SOD PHOS 4 MG/1ML SDV INJ IV SCH (10:02)
[2020-06-25] MEDS: FLUCONAZOLE 200MG/100ML 100 ML IV SCH (10:02)
[2020-06-25] MEDS: CHOLECALCIFEROL (VITD3) 2,000 UNIT CAP PO SCH (10:03)
[2020-06-25] MEDS: FLORASTOR (S. BOULARDII) 250 MG CAP PO SCH (10:03)
[2020-06-25] MEDS: SODIUM CHLOR 0.9% PF (SALINE LOCK) 10ML VIAL/SYR IV SCH ×2 (10:03→21:36)
[2020-06-25] MEDS: ASCORBIC ACID 1,000 MG TAB PO SCH (10:03)
[2020-06-25] MEDS: FAMOTIDINE (10MG/ML) 2ML VL IV SCH (10:03)
[2020-06-25] MEDS: ZINC SULFATE 220mg CAP or TAB PO SCH (10:03)
[2020-06-25] MEDS: PROPOFOL 100 ML IV SCH ×2 (10:04→21:00)
[2020-06-25] MEDS: SODIUM FERR GLUC 62.5MG/5ML 125 MG in SODIUM CHL 0.9% 100 ML IV SCH (11:51)
[2020-06-25 11:53] LABS: Band Neutrophils % (manual) 1; Eosinophils % (manual) 1 (0-7); Lymphocytes % (manual) 3 (10.0-50.0); Metamyelocytes % 2; Monocytes % (manual) 7 (0-12)
[2020-06-25] MEDS: LINEZOLID 600MG/300ML 300 ML IV SCH ×2 (13:06→21:43)
[2020-06-25] MEDS ORDERED: EPOETIN ALFA 10,000 UNIT/1 ML VIAL SC ONE (21:00)
[2020-06-25] MEDS: MIDAZOLAM DRIP 50 mg/50mL 50 ML IV SCH (21:00)
[2020-06-26] VITALS (97 sets, daily range): BP systolic 111–144; BP diastolic 57–84
[2020-06-26] MEDS: ACCU-CHEK COMFORT CURVE STRIP VI SCH ×4 (00:04→18:30)
[2020-06-26] MEDS: InsuLIN REG 1unit/0.01ml Soln (100units/ml) SC SCH ×4 (00:05→18:30)
[2020-06-26 03:58] LABS: BUN/Creatinine Ratio 13.8; Calcium 7.1 mg/dL (8.5-10.1); Potassium 4.1 mmol/L (3.5-5.1)
[2020-06-26] MEDS: CALCIUM ACETATE 667 MG CAP PO SCH ×3 (06:00→20:39)
[2020-06-26] MEDS: PIPERACILLIN-TAZOB 2.25GM 50 ML IV SCH ×3 (06:16→20:39)
[2020-06-26] MEDS: INSULIN LANTUS (GLARGINE) 1 /0.01ml (100units/ml) SC SCH ×2 (06:17→22:24)
[2020-06-26] MEDS: ALBUTEROL SULF 2.5 MG/0.5ML(0.5%) NEB SOLN NEB SCH ×2 (07:04→22:00)
[2020-06-26] MEDS: BUDESONIDE (INHALATION) 0.5 MG/2 ML NEB NEB SCH ×2 (07:04→22:00)
[2020-06-26] MEDS: DexAMETHasone SOD PHOS 4 MG/1ML SDV INJ IV SCH (09:18)
[2020-06-26] MEDS: THIAMINE 100mg/ml INJ (200mg/2ml VIAL) IV SCH (09:18)
[2020-06-26] MEDS: ZINC SULFATE 220mg CAP or TAB PO SCH (09:18)
[2020-06-26] MEDS: FLORASTOR (S. BOULARDII) 250 MG CAP PO SCH (09:18)
[2020-06-26] MEDS: SODIUM CHLOR 0.9% PF (SALINE LOCK) 10ML VIAL/SYR IV SCH ×2 (09:18→22:22)
[2020-06-26] MEDS: FOLIC ACID 1 MG in D5W 5% 50 ML INJ SCH (09:19)
[2020-06-26] MEDS: ASCORBIC ACID 1,000 MG TAB PO SCH (09:19)
[2020-06-26] MEDS: CHOLECALCIFEROL (VITD3) 2,000 UNIT CAP PO SCH (09:19)
[2020-06-26] MEDS: FLUCONAZOLE 200MG/100ML 100 ML IV SCH (09:52)
[2020-06-26] MEDS: LINEZOLID 600MG/300ML 300 ML IV SCH ×2 (10:46→22:26)
[2020-06-26] MEDS: PROPOFOL 100 ML IV SCH ×2 (12:42→22:23)
[2020-06-26] MEDS: MIDAZOLAM DRIP 50 mg/50mL 50 ML IV SCH (12:42)
[2020-06-26] MEDS: fentaNYL Drip 2500mCg/250mlNS 250 ML IV SCH ×2 (12:43→23:43)
[2020-06-26] MEDS: SODIUM FERR GLUC 62.5MG/5ML 125 MG in SODIUM CHL 0.9% 100 ML IV SCH (12:49)
[2020-06-26] MEDS: ENOXAPARIN SOD 40 MG/0.4 ML SYRINGE SC SCH (16:10)
[2020-06-26] MEDS: NOREPINEPHRINE 8 MG/250ML KIT 250 ML IV SCH (21:15)
[2020-06-27] VITALS (100 sets, daily range): BP systolic 113–159; BP diastolic 60–83
[2020-06-27] MEDS: PIPERACILLIN-TAZOB 2.25GM 50 ML IV SCH ×4 (02:37→23:58)
[2020-06-27 03:51] LABS: Basophils # (auto) 0.1 10 ^3/uL (0-0.2); Eosinophils # (auto) 0.1 10 ^3/uL (0-0.8); Monocytes # (auto) 0.4 10 ^3/uL (0-1.3)
[2020-06-27 03:52] LABS: Basophils % (auto) 0.6 % (0.0-2.0); Eosinophils % (auto) 1.2 % (0.0-7.0); Hematocrit 21.9 % (41.0-53.0); Hemoglobin 7.6 g/dL (13.5-17.5); Lymphocytes # (auto) 0.5 10 ^3/uL (0.4-5.4); Lymphocytes % (auto) 4.6 % (10.0-50.0); Mean Corpuscular Hgb Conc. 34.6 g/dL (32.0-36.0); Mean Corpuscular Volume 92.3 fL (80.0-100.0); Monocytes % (auto) 4.1 % (0.0-12.0); Neutrophils % (auto) 89.5 % (37.0-80.0); Nucleated Red Blood Cells % 0.2 %; Platelet Count (auto) 111 10^3/uL (140-450); Red Blood Cells 2.37 10^6/uL (4.5-5.90); Red Cell Distribution Width 18.1 % (11.8-14.3)
[2020-06-27 04:15] LABS: BUN/Creatinine Ratio 14.4; Calcium 7.2 mg/dL (8.5-10.1); Potassium 4.5 mmol/L (3.5-5.1)
[2020-06-27] MEDS: ACCU-CHEK COMFORT CURVE STRIP VI SCH ×4 (05:56→17:59)
[2020-06-27] MEDS: INSULIN LANTUS (GLARGINE) 1 /0.01ml (100units/ml) SC SCH ×2 (05:56→22:00)
[2020-06-27] MEDS: InsuLIN REG 1unit/0.01ml Soln (100units/ml) SC SCH ×4 (05:56→17:59)
[2020-06-27] MEDS: CALCIUM ACETATE 667 MG CAP PO SCH ×3 (06:00→22:00)
[2020-06-27] MEDS: BUDESONIDE (INHALATION) 0.5 MG/2 ML NEB NEB SCH ×2 (06:12→22:00)
[2020-06-27] MEDS: ALBUTEROL SULF 2.5 MG/0.5ML(0.5%) NEB SOLN NEB SCH ×2 (06:12→22:00)
[2020-06-27] MEDS: PROPOFOL 100 ML IV SCH ×2 (06:50→19:22)
[2020-06-27] MEDS: DexAMETHasone SOD PHOS 4 MG/1ML SDV INJ IV SCH (10:00)
[2020-06-27] MEDS: FOLIC ACID 1 MG in D5W 5% 50 ML INJ SCH (10:00)
[2020-06-27] MEDS: CHOLECALCIFEROL (VITD3) 2,000 UNIT CAP PO SCH (10:00)
[2020-06-27] MEDS: LINEZOLID 600MG/300ML 300 ML IV SCH (10:00)
[2020-06-27] MEDS: FLORASTOR (S. BOULARDII) 250 MG CAP PO SCH (10:00)
[2020-06-27] MEDS: ASCORBIC ACID 1,000 MG TAB PO SCH (10:00)
[2020-06-27] MEDS: ZINC SULFATE 220mg CAP or TAB PO SCH (10:00)
[2020-06-27] MEDS: ENOXAPARIN SOD 40 MG/0.4 ML SYRINGE SC SCH (10:00)
[2020-06-27] MEDS: FAMOTIDINE (10MG/ML) 2ML VL IV SCH (10:00)
[2020-06-27] MEDS: THIAMINE 100mg/ml INJ (200mg/2ml VIAL) IV SCH (10:00)
[2020-06-27] MEDS: FLUCONAZOLE 200MG/100ML 100 ML IV SCH (10:00)
[2020-06-27] MEDS: SODIUM CHLOR 0.9% PF (SALINE LOCK) 10ML VIAL/SYR IV SCH ×2 (10:00→22:00)
[2020-06-27] MEDS: fentaNYL Drip 2500mCg/250mlNS 250 ML IV SCH ×2 (11:39→23:40)
[2020-06-27] MEDS: SODIUM FERR GLUC 62.5MG/5ML 125 MG in SODIUM CHL 0.9% 100 ML IV SCH (12:28)
[2020-06-27] MEDS: MIDAZOLAM DRIP 50 mg/50mL 50 ML IV SCH (13:44)
[2020-06-27] MEDS: NOREPINEPHRINE 8 MG/250ML KIT 250 ML IV SCH (21:15)
[2020-06-28] VITALS (99 sets, daily range): BP systolic 116–140; BP diastolic 56–80
[2020-06-28] MEDS: PROPOFOL 100 ML IV SCH ×4 (01:15→23:15)
[2020-06-28] MEDS: PIPERACILLIN-TAZOB 2.25GM 50 ML IV SCH ×4 (02:00→20:00)
[2020-06-28 03:55] LABS: Basophils # (auto) 0 10 ^3/uL (0-0.2); Basophils % (auto) 0.5 % (0.0-2.0); Eosinophils # (auto) 0.1 10 ^3/uL (0-0.8); Hemoglobin 7.8 g/dL (13.5-17.5); Mean Corpuscular Volume 92.9 fL (80.0-100.0); White Blood Cell 9.7 10^3/uL (4.4-10.8)
[2020-06-28 03:57] LABS: Eosinophils % (auto) 0.9 % (0.0-7.0); Hematocrit 22.5 % (41.0-53.0); Lymphocytes # (auto) 0.4 10 ^3/uL (0.4-5.4); Lymphocytes % (auto) 4.3 % (10.0-50.0); Mean Corpuscular Hemoglobin 32.2 pg (28.0-32.0); Mean Corpuscular Hgb Conc. 34.7 g/dL (32.0-36.0); Monocytes # (auto) 0.5 10 ^3/uL (0-1.3); Monocytes % (auto) 4.9 % (0.0-12.0); Neutrophils # (auto) 8.6 10 ^3/uL (1.6-8.6); Neutrophils % (auto) 89.4 % (37.0-80.0); Nucleated Red Blood Cells % 0.2 %; Platelet Count (auto) 111 10^3/uL (140-450); Red Blood Cells 2.42 10^6/uL (4.5-5.90); Red Cell Distribution Width 17.9 % (11.8-14.3)
[2020-06-28 04:24] LABS: Albumin 2.1 g/dL (3.4-5.0); Calcium 7.4 mg/dL (8.5-10.1); Potassium 4.2 mmol/L (3.5-5.1)
[2020-06-28 04:37] LABS: BUN/Creatinine Ratio 13.6; Bilirubin, Total 0.4 mg/dL (0.2-1.0); CRP High Sensitivity 1.63 mg/dL (< 0.3); Total Protein 5.5 g/dL (6.4-8.2)
[2020-06-28] MEDS: InsuLIN REG 1unit/0.01ml Soln (100units/ml) SC SCH ×4 (06:00→18:04)
[2020-06-28] MEDS: ACCU-CHEK COMFORT CURVE STRIP VI SCH ×4 (06:18→18:03)
[2020-06-28] MEDS: CALCIUM ACETATE 667 MG CAP PO SCH ×3 (06:18→22:13)
[2020-06-28] MEDS: INSULIN LANTUS (GLARGINE) 1 /0.01ml (100units/ml) SC SCH ×2 (06:19→22:14)
[2020-06-28] MEDS: BUDESONIDE (INHALATION) 0.5 MG/2 ML NEB NEB SCH ×2 (06:55→18:27)
[2020-06-28] MEDS: ALBUTEROL SULF 2.5 MG/0.5ML(0.5%) NEB SOLN NEB SCH ×3 (06:55→18:27)
[2020-06-28] MEDS: ASCORBIC ACID 1,000 MG TAB PO SCH (10:00)
[2020-06-28] MEDS: ENOXAPARIN SOD 40 MG/0.4 ML SYRINGE SC SCH (10:00)
[2020-06-28] MEDS: ZINC SULFATE 220mg CAP or TAB PO SCH (10:00)
[2020-06-28] MEDS: DexAMETHasone SOD PHOS 4 MG/1ML SDV INJ IV SCH (10:00)
[2020-06-28] MEDS: FLORASTOR (S. BOULARDII) 250 MG CAP PO SCH (10:00)
[2020-06-28] MEDS: SODIUM CHLOR 0.9% PF (SALINE LOCK) 10ML VIAL/SYR IV SCH ×2 (10:00→22:13)
[2020-06-28] MEDS: CHOLECALCIFEROL (VITD3) 2,000 UNIT CAP PO SCH (10:00)
[2020-06-28] MEDS: MIDAZOLAM DRIP 50 mg/50mL 50 ML IV SCH ×2 (13:30→22:58)
[2020-06-28] MEDS: NOREPINEPHRINE 8 MG/250ML KIT 250 ML IV SCH (21:15)
[2020-06-29] VITALS (100 sets, daily range): BP systolic 112–144; BP diastolic 64–81
[2020-06-29] MEDS: PIPERACILLIN-TAZOB 2.25GM 50 ML IV SCH ×4 (01:22→20:00)
[2020-06-29] MEDS: PROPOFOL 100 ML IV SCH ×3 (02:00→06:25)
[2020-06-29] MEDS: MIDAZOLAM DRIP 50 mg/50mL 50 ML IV SCH ×3 (02:21→06:25)
[2020-06-29] MEDS: ACCU-CHEK COMFORT CURVE STRIP VI SCH ×5 (05:56→23:49)
[2020-06-29] MEDS: CALCIUM ACETATE 667 MG CAP PO SCH ×3 (05:56→21:06)
[2020-06-29] MEDS: InsuLIN REG 1unit/0.01ml Soln (100units/ml) SC SCH ×5 (05:56→23:49)
[2020-06-29] MEDS: INSULIN LANTUS (GLARGINE) 1 /0.01ml (100units/ml) SC SCH ×2 (05:57→21:12)
[2020-06-29] MEDS: ALBUTEROL SULF 2.5 MG/0.5ML(0.5%) NEB SOLN NEB SCH ×3 (06:30→21:28)
[2020-06-29] MEDS: BUDESONIDE (INHALATION) 0.5 MG/2 ML NEB NEB SCH ×2 (06:30→21:28)
[2020-06-29 08:20] LABS: Hemoglobin 7.6 g/dL (13.5-17.5); White Blood Cell 9.5 10^3/uL (4.4-10.8)
[2020-06-29 08:24] LABS: Hematocrit 22.3 % (41.0-53.0); Mean Corpuscular Hemoglobin 32.1 pg (28.0-32.0); Mean Corpuscular Hgb Conc. 34.3 g/dL (32.0-36.0); Mean Corpuscular Volume 93.5 fL (80.0-100.0); Platelet Count (auto) 107 10^3/uL (140-450); Red Blood Cells 2.38 10^6/uL (4.5-5.90); Red Cell Distribution Width 18.7 % (11.8-14.3)
[2020-06-29 08:31] LABS: Basophils % (manual) 0 (0.0-2.0); Blast Cells 0; Myelocytes % 0; Promyelocytes % 0; Reactive Lymphocytes 0
[2020-06-29 08:41] LABS: Potassium 4.4 mmol/L (3.5-5.1)
[2020-06-29 08:50] LABS: Albumin 2.2 g/dL (3.4-5.0); Bilirubin, Total 0.4 mg/dL (0.2-1.0); Calcium 7.7 mg/dL (8.5-10.1); Total Protein 5.3 g/dL (6.4-8.2)
[2020-06-29 09:09] LABS: Band Neutrophils % (manual) 4; Eosinophils % (manual) 5 (0-7); Lymphocytes % (manual) 5 (10.0-50.0); Metamyelocytes % 2; Monocytes % (manual) 6 (0-12)
[2020-06-29] MEDS: SODIUM CHLOR 0.9% PF (SALINE LOCK) 10ML VIAL/SYR IV SCH ×2 (09:33→21:10)
[2020-06-29] MEDS: FAMOTIDINE (10MG/ML) 2ML VL IV SCH (09:33)
[2020-06-29] MEDS: DexAMETHasone SOD PHOS 4 MG/1ML SDV INJ IV SCH (09:33)
[2020-06-29] MEDS: ASCORBIC ACID 1,000 MG TAB PO SCH (09:34)
[2020-06-29] MEDS: ZINC SULFATE 220mg CAP or TAB PO SCH (09:34)
[2020-06-29] MEDS: FLORASTOR (S. BOULARDII) 250 MG CAP PO SCH (09:34)
[2020-06-29] MEDS: CHOLECALCIFEROL (VITD3) 2,000 UNIT CAP PO SCH (09:35)
[2020-06-29] MEDS: ENOXAPARIN SOD 40 MG/0.4 ML SYRINGE SC SCH ×2 (09:35→21:10)
[2020-06-29] MEDS: NOREPINEPHRINE 8 MG/250ML KIT 250 ML IV SCH (21:15)
[2020-06-29] MEDS: fentaNYL Drip 2500mCg/250mlNS 250 ML IV SCH ×2 (22:00)
[2020-06-30] VITALS (100 sets, daily range): BP systolic 102–142; BP diastolic 47–82
[2020-06-30] MEDS: PROPOFOL 100 ML IV SCH ×8 (01:17→21:40)
[2020-06-30] MEDS: PIPERACILLIN-TAZOB 2.25GM 50 ML IV SCH ×4 (01:26→20:00)
[2020-06-30] MEDS: CALCIUM ACETATE 667 MG CAP PO SCH ×3 (03:39→22:00)
[2020-06-30] MEDS: ACCU-CHEK COMFORT CURVE STRIP VI SCH ×3 (05:35→17:09)
[2020-06-30] MEDS: INSULIN LANTUS (GLARGINE) 1 /0.01ml (100units/ml) SC SCH ×2 (05:35→22:00)
[2020-06-30] MEDS: InsuLIN REG 1unit/0.01ml Soln (100units/ml) SC SCH ×3 (05:35→17:09)
[2020-06-30] MEDS: ALBUTEROL SULF 2.5 MG/0.5ML(0.5%) NEB SOLN NEB SCH ×3 (06:00→22:00)
[2020-06-30] MEDS: MIDAZOLAM DRIP 50 mg/50mL 50 ML IV SCH ×2 (06:50→22:57)
[2020-06-30] MEDS ORDERED: SODIUM CHL 0.9% 1000 ML BAG XX ONE (07:00)
[2020-06-30 09:05] LABS: Hematocrit 21.8 % (41.0-53.0); Hemoglobin 7.5 g/dL (13.5-17.5); Mean Corpuscular Hemoglobin 32.1 pg (28.0-32.0); Mean Corpuscular Hgb Conc. 34.2 g/dL (32.0-36.0); Mean Corpuscular Volume 93.8 fL (80.0-100.0); Platelet Count (auto) 95 10^3/uL (140-450); Red Blood Cells 2.32 10^6/uL (4.5-5.90); Red Cell Distribution Width 18.6 % (11.8-14.3); White Blood Cell 7.8 10^3/uL (4.4-10.8)
[2020-06-30 09:21] LABS: Basophils % (manual) 0 (0.0-2.0); Blast Cells 0; Metamyelocytes % 0; Myelocytes % 0; Promyelocytes % 0; Reactive Lymphocytes 0
[2020-06-30 09:36] LABS: Calcium 7.2 mg/dL (8.5-10.1); Potassium 4.1 mmol/L (3.5-5.1)
[2020-06-30 09:40] LABS: Bilirubin, Total 0.5 mg/dL (0.2-1.0); Total Protein 5.1 g/dL (6.4-8.2)
[2020-06-30 09:49] LABS: INR 1.01 (0.9-1.15)
[2020-06-30] MEDS: ASCORBIC ACID 1,000 MG TAB PO SCH (10:00)
[2020-06-30] MEDS: ENOXAPARIN SOD 40 MG/0.4 ML SYRINGE SC SCH (10:00)
[2020-06-30] MEDS: FLORASTOR (S. BOULARDII) 250 MG CAP PO SCH (10:00)
[2020-06-30] MEDS: DexAMETHasone SOD PHOS 4 MG/1ML SDV INJ IV SCH (10:00)
[2020-06-30] MEDS ORDERED: ALBUMIN 25% 100 ML IV PRN (10:00)
[2020-06-30] MEDS: CHOLECALCIFEROL (VITD3) 2,000 UNIT CAP PO SCH (10:00)
[2020-06-30] MEDS: ZINC SULFATE 220mg CAP or TAB PO SCH (10:00)
[2020-06-30] MEDS: SODIUM CHLOR 0.9% PF (SALINE LOCK) 10ML VIAL/SYR IV SCH ×2 (10:00→22:00)
[2020-06-30 10:12] LABS: Band Neutrophils % (manual) 1; Eosinophils % (manual) 3 (0-7); Lymphocytes % (manual) 11 (10.0-50.0); Monocytes % (manual) 7 (0-12)
[2020-06-30] MEDS: BUDESONIDE (INHALATION) 0.5 MG/2 ML NEB NEB SCH (10:12)
[2020-06-30] MEDS: fentaNYL Drip 2500mCg/250mlNS 250 ML IV SCH ×2 (10:44→22:57)
[2020-06-30] MEDS ORDERED: EPOETIN ALFA 10,000 UNIT/1 ML VIAL SC ONE (21:00)
[2020-06-30] MEDS: NOREPINEPHRINE 8 MG/250ML KIT 250 ML IV SCH (21:15)
[2020-07-01] VITALS (95 sets, daily range): BP systolic 104–138; BP diastolic 52–82
[2020-07-01] MEDS: PIPERACILLIN-TAZOB 2.25GM 50 ML IV SCH ×4 (02:00→21:30)
[2020-07-01] MEDS: PROPOFOL 100 ML IV SCH ×6 (02:25→23:00)
[2020-07-01] MEDS: MIDAZOLAM DRIP 50 mg/50mL 50 ML IV SCH ×2 (04:45→10:26)
[2020-07-01 04:47] LABS: Eosinophils # (auto) 0.3 10 ^3/uL (0-0.8); Hematocrit 22.3 % (41.0-53.0); Hemoglobin 7.7 g/dL (13.5-17.5); Lymphocytes # (auto) 0.4 10 ^3/uL (0.4-5.4); Mean Corpuscular Hemoglobin 32.3 pg (28.0-32.0); Mean Corpuscular Hgb Conc. 34.5 g/dL (32.0-36.0); Monocytes # (auto) 0.3 10 ^3/uL (0-1.3); Nucleated Red Blood Cells % 0.4 %
[2020-07-01 04:48] LABS: Basophils # (auto) 0.1 10 ^3/uL (0-0.2); Basophils % (auto) 0.8 % (0.0-2.0); Eosinophils % (auto) 4.1 % (0.0-7.0); Lymphocytes % (auto) 5.7 % (10.0-50.0); Mean Corpuscular Volume 93.6 fL (80.0-100.0); Monocytes % (auto) 3.8 % (0.0-12.0); Neutrophils # (auto) 6.4 10 ^3/uL (1.6-8.6); Neutrophils % (auto) 85.6 % (37.0-80.0); Platelet Count (auto) 107 10^3/uL (140-450); Red Blood Cells 2.38 10^6/uL (4.5-5.90); Red Cell Distribution Width 19.8 % (11.8-14.3); White Blood Cell 7.5 10^3/uL (4.4-10.8)
[2020-07-01 04:55] LABS: Potassium 3.6 mmol/L (3.5-5.1)
[2020-07-01 05:01] LABS: BUN/Creatinine Ratio 15.2; Calcium 7.1 mg/dL (8.5-10.1)
[2020-07-01] MEDS: CALCIUM ACETATE 667 MG CAP PO SCH ×3 (06:00→22:00)
[2020-07-01] MEDS: InsuLIN REG 1unit/0.01ml Soln (100units/ml) SC SCH ×4 (06:00→17:26)
[2020-07-01] MEDS: ACCU-CHEK COMFORT CURVE STRIP VI SCH ×4 (06:00→17:26)
[2020-07-01] MEDS: ALBUTEROL SULF 2.5 MG/0.5ML(0.5%) NEB SOLN NEB SCH ×3 (06:00→22:00)
[2020-07-01] MEDS: INSULIN LANTUS (GLARGINE) 1 /0.01ml (100units/ml) SC SCH ×2 (07:00→22:00)
[2020-07-01] MEDS: SODIUM CHLOR 0.9% PF (SALINE LOCK) 10ML VIAL/SYR IV SCH ×2 (08:27→22:00)
[2020-07-01] MEDS: DexAMETHasone SOD PHOS 4 MG/1ML SDV INJ IV SCH (08:27)
[2020-07-01] MEDS: ASCORBIC ACID 1,000 MG TAB PO SCH (08:28)
[2020-07-01] MEDS: ZINC SULFATE 220mg CAP or TAB PO SCH (08:28)
[2020-07-01] MEDS: CHOLECALCIFEROL (VITD3) 2,000 UNIT CAP PO SCH (08:28)
[2020-07-01] MEDS: FLORASTOR (S. BOULARDII) 250 MG CAP PO SCH (08:28)
[2020-07-01] MEDS: FAMOTIDINE (10MG/ML) 2ML VL IV SCH (09:23)
[2020-07-01] MEDS: BUDESONIDE (INHALATION) 0.5 MG/2 ML NEB NEB SCH ×2 (10:27→22:00)
[2020-07-01 15:27] LABS: INR 1.01 (0.9-1.15); Partial Thromboplastin Time 28.6 sec (23.0-31.2)
[2020-07-01] MEDS: fentaNYL Drip 2500mCg/250mlNS 250 ML IV SCH (20:00)
[2020-07-01] MEDS: NOREPINEPHRINE 8 MG/250ML KIT 250 ML IV SCH (21:15)
[2020-07-02] VITALS (82 sets, daily range): BP systolic 99–164; BP diastolic 48–100
[2020-07-02] MEDS: MIDAZOLAM DRIP 50 mg/50mL 50 ML IV SCH ×2 (00:30→09:09)
[2020-07-02] MEDS: PIPERACILLIN-TAZOB 2.25GM 50 ML IV SCH ×4 (01:28→20:00)
[2020-07-02] MEDS: ACCU-CHEK COMFORT CURVE STRIP VI SCH ×4 (01:28→18:00)
[2020-07-02] MEDS: PROPOFOL 100 ML IV SCH ×4 (01:30→15:01)
[2020-07-02] MEDS: CALCIUM ACETATE 667 MG CAP PO SCH ×3 (05:16→22:00)
[2020-07-02] MEDS: InsuLIN REG 1unit/0.01ml Soln (100units/ml) SC SCH ×5 (05:17→18:00)
[2020-07-02] MEDS: INSULIN LANTUS (GLARGINE) 1 /0.01ml (100units/ml) SC SCH ×2 (05:18→22:00)
[2020-07-02 05:20] LABS: Albumin 2.2 g/dL (3.4-5.0); BUN/Creatinine Ratio 15.2; Calcium 7.5 mg/dL (8.5-10.1); Potassium 4.3 mmol/L (3.5-5.1)
[2020-07-02 05:23] LABS: Bilirubin, Total 0.6 mg/dL (0.2-1.0); Phosphorus 7.7 mg/dL (2.5-4.90); Total Protein 5.6 g/dL (6.4-8.2)
[2020-07-02 06:51] LABS: Basophils # (auto) 0 10 ^3/uL (0-0.2); Basophils % (auto) 0.5 % (0.0-2.0); Eosinophils # (auto) 0.2 10 ^3/uL (0-0.8); Eosinophils % (auto) 1.9 % (0.0-7.0); Hematocrit 25.1 % (41.0-53.0); Hemoglobin 8.6 g/dL (13.5-17.5); Lymphocytes # (auto) 0.3 10 ^3/uL (0.4-5.4); Lymphocytes % (auto) 3.8 % (10.0-50.0); Mean Corpuscular Hemoglobin 32.6 pg (28.0-32.0); Mean Corpuscular Hgb Conc. 34.4 g/dL (32.0-36.0); Mean Corpuscular Volume 94.7 fL (80.0-100.0); Monocytes # (auto) 0.4 10 ^3/uL (0-1.3); Monocytes % (auto) 4.4 % (0.0-12.0); Neutrophils # (auto) 7.6 10 ^3/uL (1.6-8.6); Neutrophils % (auto) 89.4 % (37.0-80.0); Nucleated Red Blood Cells % 0.3 %; Platelet Count (auto) 121 10^3/uL (140-450); Red Blood Cells 2.65 10^6/uL (4.5-5.90); White Blood Cell 8.5 10^3/uL (4.4-10.8)
[2020-07-02] MEDS ORDERED: SODIUM CHL 0.9% 1000 ML BAG XX ONE (07:00)
[2020-07-02 07:03] LABS: Red Cell Distribution Width 20.2 % (11.8-14.3)
[2020-07-02] MEDS: ZINC SULFATE 220mg CAP or TAB PO SCH (08:16)
[2020-07-02] MEDS: FLORASTOR (S. BOULARDII) 250 MG CAP PO SCH (08:16)
[2020-07-02] MEDS: CHOLECALCIFEROL (VITD3) 2,000 UNIT CAP PO SCH (08:17)
[2020-07-02] MEDS: DexAMETHasone SOD PHOS 4 MG/1ML SDV INJ IV SCH (08:17)
[2020-07-02] MEDS: SODIUM CHLOR 0.9% PF (SALINE LOCK) 10ML VIAL/SYR IV SCH ×2 (08:17→22:49)
[2020-07-02] MEDS: ASCORBIC ACID 1,000 MG TAB PO SCH (08:17)
[2020-07-02] MEDS: fentaNYL Drip 2500mCg/250mlNS 250 ML IV SCH (09:08)
[2020-07-02] MEDS ORDERED: ePHEDrine SULFATE 50 MG/ML AMP ONE (10:21)
[2020-07-02] MEDS ORDERED: LIDOCAINE W/ EPINEPHRINE 1% 20ML VIAL ONE (11:11)
[2020-07-02] MEDS: ALBUTEROL SULF 2.5 MG/0.5ML(0.5%) NEB SOLN NEB SCH ×3 (14:00→19:38)
[2020-07-02] MEDS ORDERED: DOPamine 1600MCG/ML D5W 250 ML IV ONE (15:47)
[2020-07-02] MEDS: BUDESONIDE (INHALATION) 0.5 MG/2 ML NEB NEB SCH ×2 (16:47→19:38)
[2020-07-02] MEDS: DOPamine 1600MCG/ML D5W 250 ML IV SCH (17:15)
[2020-07-02] MEDS ORDERED: EPOETIN ALFA 10,000 UNIT/1 ML VIAL SC ONE (21:00)
[2020-07-02] MEDS: NOREPINEPHRINE 8 MG/250ML KIT 250 ML IV SCH (21:15)
[2020-07-03] VITALS (96 sets, daily range): BP systolic 99–161; BP diastolic 44–92
[2020-07-03] MEDS: PIPERACILLIN-TAZOB 2.25GM 50 ML IV SCH ×4 (01:28→21:00)
[2020-07-03] MEDS: PROPOFOL 100 ML IV SCH ×3 (02:00→23:53)
[2020-07-03] MEDS: fentaNYL Drip 2500mCg/250mlNS 250 ML IV SCH (02:00)
[2020-07-03 05:36] LABS: Basophils # (auto) 0 10 ^3/uL (0-0.2); Basophils % (auto) 0.3 % (0.0-2.0); Eosinophils # (auto) 0.4 10 ^3/uL (0-0.8); Eosinophils % (auto) 4.8 % (0.0-7.0); Hematocrit 27.6 % (41.0-53.0); Hemoglobin 9.4 g/dL (13.5-17.5); Lymphocytes # (auto) 0.8 10 ^3/uL (0.4-5.4); Lymphocytes % (auto) 9.5 % (10.0-50.0); Mean Corpuscular Hemoglobin 32.6 pg (28.0-32.0); Mean Corpuscular Hgb Conc. 34.2 g/dL (32.0-36.0); Mean Corpuscular Volume 95.3 fL (80.0-100.0); Monocytes # (auto) 0.5 10 ^3/uL (0-1.3); Neutrophils # (auto) 6.5 10 ^3/uL (1.6-8.6); Neutrophils % (auto) 79.4 % (37.0-80.0); Nucleated Red Blood Cells % 0.4 %; Platelet Count (auto) 127 10^3/uL (140-450); Red Blood Cells 2.89 10^6/uL (4.5-5.90); White Blood Cell 8.2 10^3/uL (4.4-10.8)
[2020-07-03 05:50] LABS: Red Cell Distribution Width 20.8 % (11.8-14.3)
[2020-07-03 05:53] LABS: Potassium 4.2 mmol/L (3.5-5.1)
[2020-07-03] MEDS: INSULIN LANTUS (GLARGINE) 1 /0.01ml (100units/ml) SC SCH ×2 (05:54→22:00)
[2020-07-03] MEDS: CALCIUM ACETATE 667 MG CAP PO SCH ×3 (05:54→22:00)
[2020-07-03] MEDS: InsuLIN REG 1unit/0.01ml Soln (100units/ml) SC SCH ×4 (05:55→18:00)
[2020-07-03] MEDS: ACCU-CHEK COMFORT CURVE STRIP VI SCH ×4 (05:55→18:20)
[2020-07-03 05:59] LABS: BUN/Creatinine Ratio 14.3; Calcium 7.3 mg/dL (8.5-10.1)
[2020-07-03] MEDS: ALBUTEROL SULF 2.5 MG/0.5ML(0.5%) NEB SOLN NEB SCH ×3 (06:00→18:25)
[2020-07-03] MEDS: ZINC SULFATE 220mg CAP or TAB PO SCH (09:30)
[2020-07-03] MEDS: CHOLECALCIFEROL (VITD3) 2,000 UNIT CAP PO SCH (09:30)
[2020-07-03] MEDS: ASCORBIC ACID 1,000 MG TAB PO SCH (09:30)
[2020-07-03] MEDS: SODIUM CHLOR 0.9% PF (SALINE LOCK) 10ML VIAL/SYR IV SCH ×2 (09:30→22:11)
[2020-07-03] MEDS: DexAMETHasone SOD PHOS 4 MG/1ML SDV INJ IV SCH (09:30)
[2020-07-03] MEDS: FLORASTOR (S. BOULARDII) 250 MG CAP PO SCH (09:30)
[2020-07-03] MEDS: DOPamine 1600MCG/ML D5W 250 ML IV SCH (10:00)
[2020-07-03] MEDS: BUDESONIDE (INHALATION) 0.5 MG/2 ML NEB NEB SCH ×2 (10:00→18:25)
[2020-07-03] MEDS: MIDAZOLAM DRIP 50 mg/50mL 50 ML IV SCH (11:00)
[2020-07-03] MEDS: FAMOTIDINE (10MG/ML) 2ML VL IV SCH (11:27)
[2020-07-03] MEDS: Nepro With Carb Steady 1 Liter Bottle NG SCH (14:04)
[2020-07-04] VITALS (89 sets, daily range): BP systolic 97–128; BP diastolic 54–82
[2020-07-04] MEDS: PIPERACILLIN-TAZOB 2.25GM 50 ML IV SCH ×4 (01:39→20:49)
[2020-07-04] MEDS: MIDAZOLAM DRIP 50 mg/50mL 50 ML IV SCH (01:40)
[2020-07-04] MEDS: fentaNYL Drip 2500mCg/250mlNS 250 ML IV SCH ×2 (01:41→13:31)
[2020-07-04] MEDS: DOPamine 1600MCG/ML D5W 250 ML IV SCH ×2 (02:45→17:37)
[2020-07-04] MEDS: CALCIUM ACETATE 667 MG CAP PO SCH ×3 (05:58→21:53)
[2020-07-04] MEDS: InsuLIN REG 1unit/0.01ml Soln (100units/ml) SC SCH ×4 (05:58→17:35)
[2020-07-04] MEDS: INSULIN LANTUS (GLARGINE) 1 /0.01ml (100units/ml) SC SCH ×2 (05:59→21:54)
[2020-07-04] MEDS: ACCU-CHEK COMFORT CURVE STRIP VI SCH ×4 (05:59→17:34)
[2020-07-04 06:05] LABS: Hematocrit 21.2 % (41.0-53.0); Hemoglobin 7.6 g/dL (13.5-17.5); Mean Corpuscular Hemoglobin 33.7 pg (28.0-32.0); Mean Corpuscular Hgb Conc. 35.6 g/dL (32.0-36.0); Mean Corpuscular Volume 94.7 fL (80.0-100.0); Platelet Count (auto) 107 10^3/uL (140-450); Red Blood Cells 2.24 10^6/uL (4.5-5.90); Red Cell Distribution Width 19.6 % (11.8-14.3); White Blood Cell 4.4 10^3/uL (4.4-10.8)
[2020-07-04 06:15] LABS: Basophils % (manual) 0 (0.0-2.0); Blast Cells 0; Myelocytes % 0; Promyelocytes % 0; Reactive Lymphocytes 0
[2020-07-04 06:18] LABS: BUN/Creatinine Ratio 14.8; Calcium 6.6 mg/dL (8.5-10.1); Potassium 4.3 mmol/L (3.5-5.1)
[2020-07-04] MEDS: ALBUTEROL SULF 2.5 MG/0.5ML(0.5%) NEB SOLN NEB SCH ×3 (06:35→21:43)
[2020-07-04] MEDS: BUDESONIDE (INHALATION) 0.5 MG/2 ML NEB NEB SCH ×2 (06:35→21:43)
[2020-07-04] MEDS ORDERED: SODIUM CHL 0.9% 1000 ML BAG XX ONE (07:00)
[2020-07-04] MEDS: SODIUM CHLOR 0.9% PF (SALINE LOCK) 10ML VIAL/SYR IV SCH ×2 (09:16→21:53)
[2020-07-04] MEDS: FLORASTOR (S. BOULARDII) 250 MG CAP PO SCH (09:17)
[2020-07-04] MEDS: CHOLECALCIFEROL (VITD3) 2,000 UNIT CAP PO SCH (09:17)
[2020-07-04] MEDS: ZINC SULFATE 220mg CAP or TAB PO SCH (09:17)
[2020-07-04] MEDS: DexAMETHasone SOD PHOS 4 MG/1ML SDV INJ IV SCH (09:17)
[2020-07-04] MEDS: ASCORBIC ACID 1,000 MG TAB PO SCH (09:17)
[2020-07-04] MEDS ORDERED: METOCLOPRAMIDE HCL 5MG/ml INJ 2ml VIAL IV ONE (11:15)
[2020-07-04 12:06] LABS: Band Neutrophils % (manual) 13; Eosinophils % (manual) 4 (0-7); Lymphocytes % (manual) 8 (10.0-50.0); Metamyelocytes % 2; Monocytes % (manual) 3 (0-12)
[2020-07-04] MEDS: PROPOFOL 100 ML IV SCH ×2 (13:30→21:54)
[2020-07-04] MEDS ORDERED: EPOETIN ALFA 10,000 UNIT/1 ML VIAL SC ONE (21:00)
[2020-07-04] MEDS: METOCLOPRAMIDE HCL 5MG/ml INJ 2ml VIAL IV SCH (21:53)
[2020-07-05] VITALS (82 sets, daily range): BP systolic 105–132; BP diastolic 57–82
[2020-07-05] MEDS: ACCU-CHEK COMFORT CURVE STRIP VI SCH ×4 (00:14→18:00)
[2020-07-05] MEDS: PROPOFOL 100 ML IV SCH ×6 (01:10→21:43)
[2020-07-05] MEDS: fentaNYL Drip 2500mCg/250mlNS 250 ML IV SCH (01:10)
[2020-07-05] MEDS: PIPERACILLIN-TAZOB 2.25GM 50 ML IV SCH ×4 (01:43→20:02)
[2020-07-05 05:51] LABS: Eosinophils # (auto) 0.1 10 ^3/uL (0-0.8); Lymphocytes # (auto) 0.4 10 ^3/uL (0.4-5.4); Monocytes # (auto) 0.4 10 ^3/uL (0-1.3)
[2020-07-05] MEDS: INSULIN LANTUS (GLARGINE) 1 /0.01ml (100units/ml) SC SCH ×2 (05:51→22:00)
[2020-07-05] MEDS: InsuLIN REG 1unit/0.01ml Soln (100units/ml) SC SCH ×4 (05:51→18:00)
[2020-07-05] MEDS: METOCLOPRAMIDE HCL 5MG/ml INJ 2ml VIAL IV SCH ×3 (05:53→21:44)
[2020-07-05] MEDS: CALCIUM ACETATE 667 MG CAP PO SCH ×3 (05:53→21:44)
[2020-07-05 05:59] LABS: Basophils # (auto) 0.1 10 ^3/uL (0-0.2); Basophils % (auto) 1.6 % (0.0-2.0); Eosinophils % (auto) 2.8 % (0.0-7.0); Hematocrit 22.5 % (41.0-53.0); Hemoglobin 7.8 g/dL (13.5-17.5); Lymphocytes % (auto) 8.3 % (10.0-50.0); Mean Corpuscular Hemoglobin 32.5 pg (28.0-32.0); Mean Corpuscular Hgb Conc. 34.7 g/dL (32.0-36.0); Mean Corpuscular Volume 93.8 fL (80.0-100.0); Monocytes % (auto) 8.2 % (0.0-12.0); Neutrophils % (auto) 79.1 % (37.0-80.0); Nucleated Red Blood Cells % 0.4 %; Platelet Count (auto) 124 10^3/uL (140-450); Red Cell Distribution Width 19.4 % (11.8-14.3)
[2020-07-05] MEDS: ALBUTEROL SULF 2.5 MG/0.5ML(0.5%) NEB SOLN NEB SCH ×2 (06:00→22:00)
[2020-07-05 06:04] LABS: Calcium 7.1 mg/dL (8.5-10.1); Potassium 4.5 mmol/L (3.5-5.1)
[2020-07-05 06:08] LABS: BUN/Creatinine Ratio 15.3
[2020-07-05] MEDS: BUDESONIDE (INHALATION) 0.5 MG/2 ML NEB NEB SCH ×2 (08:41→20:42)
[2020-07-05] MEDS: ZINC SULFATE 220mg CAP or TAB PO SCH (10:00)
[2020-07-05] MEDS: FAMOTIDINE (10MG/ML) 2ML VL IV SCH (10:00)
[2020-07-05] MEDS: DexAMETHasone SOD PHOS 4 MG/1ML SDV INJ IV SCH (10:00)
[2020-07-05] MEDS: SODIUM CHLOR 0.9% PF (SALINE LOCK) 10ML VIAL/SYR IV SCH ×2 (10:00→21:49)
[2020-07-05] MEDS: CHOLECALCIFEROL (VITD3) 2,000 UNIT CAP PO SCH (10:00)
[2020-07-05] MEDS: ASCORBIC ACID 1,000 MG TAB PO SCH (10:00)
[2020-07-05] MEDS: FLORASTOR (S. BOULARDII) 250 MG CAP PO SCH (10:00)
[2020-07-05] MEDS: DOPamine 1600MCG/ML D5W 250 ML IV SCH (12:05)
[2020-07-05] MEDS: MIDAZOLAM DRIP 50 mg/50mL 50 ML IV SCH (13:30)
[2020-07-05] MEDS ORDERED: SODIUM CHL 0.9% 1000 ML BAG XX ONE (15:15)
[2020-07-05] MEDS ORDERED: EPOETIN ALFA 10,000 UNIT/1 ML VIAL SC ONE (21:00)
[2020-07-06] VITALS (97 sets, daily range): BP systolic 102–148; BP diastolic 56–90
[2020-07-06] MEDS: ACCU-CHEK COMFORT CURVE STRIP VI SCH ×4 (00:12→18:00)
[2020-07-06] MEDS: DEXTROSE (50%) 50ML SYRG IV PRN ×2 (00:13→07:21)
[2020-07-06] MEDS: PIPERACILLIN-TAZOB 2.25GM 50 ML IV SCH ×4 (02:00→20:08)
[2020-07-06] MEDS: fentaNYL Drip 2500mCg/250mlNS 250 ML IV SCH (04:19)
[2020-07-06] MEDS: CALCIUM ACETATE 667 MG CAP PO SCH ×3 (04:52→22:00)
[2020-07-06] MEDS: METOCLOPRAMIDE HCL 5MG/ml INJ 2ml VIAL IV SCH ×3 (04:52→22:00)
[2020-07-06] MEDS: DOPamine 1600MCG/ML D5W 250 ML IV SCH ×2 (05:00→21:45)
[2020-07-06] MEDS: InsuLIN REG 1unit/0.01ml Soln (100units/ml) SC SCH ×4 (06:00→18:00)
[2020-07-06] MEDS: ALBUTEROL SULF 2.5 MG/0.5ML(0.5%) NEB SOLN NEB SCH ×3 (06:00→18:20)
[2020-07-06] MEDS: INSULIN LANTUS (GLARGINE) 1 /0.01ml (100units/ml) SC SCH ×2 (06:07→22:00)
[2020-07-06] MEDS: PROPOFOL 100 ML IV SCH (06:19)
[2020-07-06 06:27] LABS: Basophils # (auto) 0 10 ^3/uL (0-0.2); Basophils % (auto) 1.1 % (0.0-2.0); Eosinophils # (auto) 0.1 10 ^3/uL (0-0.8); Eosinophils % (auto) 2.9 % (0.0-7.0); Hematocrit 22.7 % (41.0-53.0); Hemoglobin 7.9 g/dL (13.5-17.5); Lymphocytes # (auto) 0.5 10 ^3/uL (0.4-5.4); Mean Corpuscular Hemoglobin 32.7 pg (28.0-32.0); Mean Corpuscular Hgb Conc. 34.8 g/dL (32.0-36.0); Mean Corpuscular Volume 94.1 fL (80.0-100.0); Monocytes # (auto) 0.3 10 ^3/uL (0-1.3); Monocytes % (auto) 7.8 % (0.0-12.0); Neutrophils # (auto) 3.2 10 ^3/uL (1.6-8.6); Neutrophils % (auto) 77.2 % (37.0-80.0); Nucleated Red Blood Cells % 0.2 %; Platelet Count (auto) 132 10^3/uL (140-450); Red Blood Cells 2.41 10^6/uL (4.5-5.90); Red Cell Distribution Width 19.2 % (11.8-14.3); White Blood Cell 4.2 10^3/uL (4.4-10.8)
[2020-07-06 06:56] LABS: Potassium 3.6 mmol/L (3.5-5.1)
[2020-07-06 07:06] LABS: BUN/Creatinine Ratio 13.5; Calcium 6.9 mg/dL (8.5-10.1)
[2020-07-06] MEDS: BUDESONIDE (INHALATION) 0.5 MG/2 ML NEB NEB SCH ×2 (09:15→18:19)
[2020-07-06 10:20] LABS: INR 1.03 (0.9-1.15); Partial Thromboplastin Time 28.5 sec (23.0-31.2)
[2020-07-06] MEDS: ASCORBIC ACID 1,000 MG TAB PO SCH (10:36)
[2020-07-06] MEDS: DexAMETHasone SOD PHOS 4 MG/1ML SDV INJ IV SCH (10:36)
[2020-07-06] MEDS: SODIUM CHLOR 0.9% PF (SALINE LOCK) 10ML VIAL/SYR IV SCH ×2 (10:36→22:00)
[2020-07-06] MEDS: ZINC SULFATE 220mg CAP or TAB PO SCH (10:36)
[2020-07-06] MEDS: CHOLECALCIFEROL (VITD3) 2,000 UNIT CAP PO SCH (10:36)
[2020-07-06] MEDS: FLORASTOR (S. BOULARDII) 250 MG CAP PO SCH (10:36)
[2020-07-06] MEDS: MIDAZOLAM DRIP 50 mg/50mL 50 ML IV SCH (13:30)
[2020-07-07] VITALS (97 sets, daily range): BP systolic 105–155; BP diastolic 64–92
[2020-07-07] MEDS: PIPERACILLIN-TAZOB 2.25GM 50 ML IV SCH ×4 (01:31→20:36)
[2020-07-07] MEDS: CALCIUM ACETATE 667 MG CAP PO SCH ×3 (06:00→21:01)
[2020-07-07] MEDS: ACCU-CHEK COMFORT CURVE STRIP VI SCH ×4 (06:00→17:57)
[2020-07-07] MEDS: InsuLIN REG 1unit/0.01ml Soln (100units/ml) SC SCH ×4 (06:00→18:22)
[2020-07-07] MEDS: METOCLOPRAMIDE HCL 5MG/ml INJ 2ml VIAL IV SCH ×2 (06:00→13:36)
[2020-07-07] MEDS: BUDESONIDE (INHALATION) 0.5 MG/2 ML NEB NEB SCH ×2 (06:35→19:34)
[2020-07-07] MEDS: ALBUTEROL SULF 2.5 MG/0.5ML(0.5%) NEB SOLN NEB SCH ×3 (06:35→19:34)
[2020-07-07 06:50] LABS: Basophils # (auto) 0 10 ^3/uL (0-0.2); Basophils % (auto) 0.7 % (0.0-2.0); Eosinophils # (auto) 0.1 10 ^3/uL (0-0.8); Hematocrit 23.4 % (41.0-53.0); Hemoglobin 8.2 g/dL (13.5-17.5); Lymphocytes # (auto) 0.3 10 ^3/uL (0.4-5.4); Lymphocytes % (auto) 7.2 % (10.0-50.0); Mean Corpuscular Hemoglobin 32.4 pg (28.0-32.0); Mean Corpuscular Hgb Conc. 34.9 g/dL (32.0-36.0); Monocytes # (auto) 0.4 10 ^3/uL (0-1.3); Monocytes % (auto) 9.5 % (0.0-12.0); Neutrophils # (auto) 3.1 10 ^3/uL (1.6-8.6); Neutrophils % (auto) 80.6 % (37.0-80.0); Nucleated Red Blood Cells % 0.3 %; Platelet Count (auto) 136 10^3/uL (140-450); Red Blood Cells 2.52 10^6/uL (4.5-5.90); Red Cell Distribution Width 18.7 % (11.8-14.3); White Blood Cell 3.8 10^3/uL (4.4-10.8)
[2020-07-07] MEDS ORDERED: SODIUM CHL 0.9% 1000 ML BAG XX ONE (07:00)
[2020-07-07] MEDS: INSULIN LANTUS (GLARGINE) 1 /0.01ml (100units/ml) SC SCH (07:00)
[2020-07-07 07:06] LABS: Calcium 7.4 mg/dL (8.5-10.1); Potassium 3.6 mmol/L (3.5-5.1)
[2020-07-07] MEDS: fentaNYL Drip 2500mCg/250mlNS 250 ML IV SCH (07:56)
[2020-07-07] MEDS: DexAMETHasone SOD PHOS 4 MG/1ML SDV INJ IV SCH (08:18)
[2020-07-07] MEDS: ZINC SULFATE 220mg CAP or TAB PO SCH (08:19)
[2020-07-07] MEDS: ASCORBIC ACID 1,000 MG TAB PO SCH (08:19)
[2020-07-07] MEDS: FLORASTOR (S. BOULARDII) 250 MG CAP PO SCH (08:19)
[2020-07-07] MEDS: FAMOTIDINE (10MG/ML) 2ML VL IV SCH (08:20)
[2020-07-07] MEDS: SODIUM CHLOR 0.9% PF (SALINE LOCK) 10ML VIAL/SYR IV SCH ×2 (08:21→21:01)
[2020-07-07] MEDS: CHOLECALCIFEROL (VITD3) 2,000 UNIT CAP PO SCH (10:00)
[2020-07-07] MEDS: PROPOFOL 100 ML IV SCH (10:59)
[2020-07-07] MEDS: MIDAZOLAM DRIP 50 mg/50mL 50 ML IV SCH (13:30)
[2020-07-07] MEDS: DOPamine 1600MCG/ML D5W 250 ML IV SCH (14:30)
[2020-07-07] MEDS ORDERED: EPOETIN ALFA 10,000 UNIT/1 ML VIAL SC ONE (21:00)
[2020-07-08] VITALS (101 sets, daily range): BP systolic 115–165; BP diastolic 67–92
[2020-07-08] MEDS: PIPERACILLIN-TAZOB 2.25GM 50 ML IV SCH ×4 (02:00→20:00)
[2020-07-08] MEDS: METOCLOPRAMIDE HCL 5MG/ml INJ 2ml VIAL IV SCH ×4 (02:29→22:00)
[2020-07-08] MEDS: ACCU-CHEK COMFORT CURVE STRIP VI SCH ×4 (02:30→17:33)
[2020-07-08 05:21] LABS: Basophils # (auto) 0 10 ^3/uL (0-0.2); Basophils % (auto) 0.8 % (0.0-2.0); Eosinophils # (auto) 0.1 10 ^3/uL (0-0.8); Eosinophils % (auto) 3.3 % (0.0-7.0); Hematocrit 23.7 % (41.0-53.0); Hemoglobin 8.1 g/dL (13.5-17.5); Lymphocytes # (auto) 0.4 10 ^3/uL (0.4-5.4); Mean Corpuscular Hgb Conc. 34.4 g/dL (32.0-36.0); Monocytes # (auto) 0.3 10 ^3/uL (0-1.3); Monocytes % (auto) 9.6 % (0.0-12.0); Neutrophils # (auto) 2.7 10 ^3/uL (1.6-8.6); Neutrophils % (auto) 74.3 % (37.0-80.0); Nucleated Red Blood Cells % 0.4 %; Platelet Count (auto) 129 10^3/uL (140-450); Red Blood Cells 2.54 10^6/uL (4.5-5.90); White Blood Cell 3.6 10^3/uL (4.4-10.8)
[2020-07-08 05:29] LABS: BUN/Creatinine Ratio 12.9; Potassium 3.4 mmol/L (3.5-5.1)
[2020-07-08] MEDS: InsuLIN REG 1unit/0.01ml Soln (100units/ml) SC SCH ×4 (06:00→17:36)
[2020-07-08] MEDS: BUDESONIDE (INHALATION) 0.5 MG/2 ML NEB NEB SCH ×2 (06:25→23:09)
[2020-07-08] MEDS: ALBUTEROL SULF 2.5 MG/0.5ML(0.5%) NEB SOLN NEB SCH ×3 (06:25→23:09)
[2020-07-08] MEDS: CALCIUM ACETATE 667 MG CAP PO SCH ×3 (06:51→22:00)
[2020-07-08] MEDS: DOPamine 1600MCG/ML D5W 250 ML IV SCH (07:15)
[2020-07-08] MEDS: DexAMETHasone SOD PHOS 4 MG/1ML SDV INJ IV SCH (07:40)
[2020-07-08] MEDS: SODIUM CHLOR 0.9% PF (SALINE LOCK) 10ML VIAL/SYR IV SCH ×2 (07:40→22:00)
[2020-07-08] MEDS: ZINC SULFATE 220mg CAP or TAB PO SCH (07:41)
[2020-07-08] MEDS: FLORASTOR (S. BOULARDII) 250 MG CAP PO SCH (07:41)
[2020-07-08] MEDS: CHOLECALCIFEROL (VITD3) 2,000 UNIT CAP PO SCH (07:41)
[2020-07-08] MEDS: ASCORBIC ACID 1,000 MG TAB PO SCH (07:41)
[2020-07-08] MEDS ORDERED: POTASSIUM EFFERVESENT TAB 25 MEQ GT ONE (11:45)
[2020-07-08] MEDS ORDERED: ENOXAPARIN SOD 40 MG/0.4 ML SYRINGE SC ONE (12:00)
[2020-07-08] MEDS: fentaNYL Drip 2500mCg/250mlNS 250 ML IV SCH (12:29)
[2020-07-08] MEDS ORDERED: SODIUM CHL 0.9% 1000 ML BAG XX ONE (13:00)
[2020-07-08] MEDS: PROPOFOL 100 ML IV SCH (13:30)
[2020-07-08] MEDS: MIDAZOLAM DRIP 50 mg/50mL 50 ML IV SCH (13:30)
[2020-07-08] MEDS ORDERED: EPOETIN ALFA 10,000 UNIT/1 ML VIAL SC ONE (21:00)
[2020-07-09] VITALS (98 sets, daily range): BP systolic 119–156; BP diastolic 74–101
[2020-07-09] MEDS: ACCU-CHEK COMFORT CURVE STRIP VI SCH ×4 (00:52→17:41)
[2020-07-09] MEDS: PIPERACILLIN-TAZOB 2.25GM 50 ML IV SCH ×2 (02:00→10:13)
[2020-07-09 05:07] LABS: Calcium 7.9 mg/dL (8.5-10.1); Potassium 3.3 mmol/L (3.5-5.1)
[2020-07-09 05:11] LABS: BUN/Creatinine Ratio 12.2
[2020-07-09 05:14] LABS: Basophils # (auto) 0 10 ^3/uL (0-0.2); Basophils % (auto) 0.7 % (0.0-2.0); Eosinophils # (auto) 0.1 10 ^3/uL (0-0.8); Eosinophils % (auto) 2.2 % (0.0-7.0); Hematocrit 25.2 % (41.0-53.0); Hemoglobin 8.5 g/dL (13.5-17.5); Lymphocytes # (auto) 0.5 10 ^3/uL (0.4-5.4); Lymphocytes % (auto) 10.4 % (10.0-50.0); Mean Corpuscular Hemoglobin 31.2 pg (28.0-32.0); Mean Corpuscular Hgb Conc. 33.6 g/dL (32.0-36.0); Mean Corpuscular Volume 92.9 fL (80.0-100.0); Monocytes # (auto) 0.4 10 ^3/uL (0-1.3); Neutrophils # (auto) 3.5 10 ^3/uL (1.6-8.6); Neutrophils % (auto) 78.7 % (37.0-80.0); Nucleated Red Blood Cells % 0.2 %; Platelet Count (auto) 141 10^3/uL (140-450); Red Blood Cells 2.71 10^6/uL (4.5-5.90); Red Cell Distribution Width 18.7 % (11.8-14.3); White Blood Cell 4.4 10^3/uL (4.4-10.8)
[2020-07-09] MEDS: InsuLIN REG 1unit/0.01ml Soln (100units/ml) SC SCH ×4 (06:00→17:41)
[2020-07-09] MEDS: CALCIUM ACETATE 667 MG CAP PO SCH ×3 (06:08→22:32)
[2020-07-09] MEDS: METOCLOPRAMIDE HCL 5MG/ml INJ 2ml VIAL IV SCH ×3 (06:08→22:31)
[2020-07-09] MEDS: fentaNYL Drip 2500mCg/250mlNS 250 ML IV SCH (06:11)
[2020-07-09] MEDS: BUDESONIDE (INHALATION) 0.5 MG/2 ML NEB NEB SCH ×2 (06:15→22:00)
[2020-07-09] MEDS: ALBUTEROL SULF 2.5 MG/0.5ML(0.5%) NEB SOLN NEB SCH ×3 (06:15→22:00)
[2020-07-09] MEDS: ACETAMINOPHEN 500 MG TAB PO PRN ×2 (10:15→17:17)
[2020-07-09] MEDS: DexAMETHasone SOD PHOS 4 MG/1ML SDV INJ IV SCH (10:28)
[2020-07-09] MEDS: FAMOTIDINE (10MG/ML) 2ML VL IV SCH (10:28)
[2020-07-09] MEDS: SODIUM CHLOR 0.9% PF (SALINE LOCK) 10ML VIAL/SYR IV SCH ×2 (10:28→22:31)
[2020-07-09] MEDS: CHOLECALCIFEROL (VITD3) 2,000 UNIT CAP PO SCH (10:29)
[2020-07-09] MEDS: ASCORBIC ACID 1,000 MG TAB PO SCH (10:29)
[2020-07-09] MEDS: ZINC SULFATE 220mg CAP or TAB PO SCH (10:29)
[2020-07-09] MEDS: FLORASTOR (S. BOULARDII) 250 MG CAP PO SCH (10:29)
[2020-07-09] MEDS ORDERED: FLUCONAZOLE 200MG/100ML 100 ML IV ONE (11:15)
[2020-07-09] MEDS ORDERED: MEROPENEM 500MG IVPB 50 ML IV ONE (12:15)
[2020-07-09] MEDS: LINEZOLID 600MG/300ML 300 ML IV SCH (13:10)
[2020-07-09] MEDS: MIDAZOLAM DRIP 50 mg/50mL 50 ML IV SCH ×2 (13:14→23:00)
[2020-07-09] MEDS: PROPOFOL 100 ML IV SCH (13:30)
[2020-07-09] MEDS: ENOXAPARIN SOD 40 MG/0.4 ML SYRINGE SC SCH (13:35)
[2020-07-09] MEDS: DOPamine 1600MCG/ML D5W 250 ML IV SCH ×2 (16:45)
[2020-07-09] MEDS ORDERED: CATHFLO ACTIVASE (ALTEPLASE) 2 MG VIAL IV ONE (19:15)
[2020-07-10] VITALS (97 sets, daily range): BP systolic 110–157; BP diastolic 68–93
[2020-07-10] MEDS: LINEZOLID 600MG/300ML 300 ML IV SCH ×3 (00:22→21:50)
[2020-07-10] MEDS: ACCU-CHEK COMFORT CURVE STRIP VI SCH ×4 (00:22→18:00)
[2020-07-10] MEDS: MEROPENEM 1GM IVPB 100 ML IV SCH ×2 (02:22→14:42)
[2020-07-10 03:44] LABS: Basophils # (auto) 0 10 ^3/uL (0-0.2); Eosinophils # (auto) 0.1 10 ^3/uL (0-0.8); Monocytes # (auto) 0.4 10 ^3/uL (0-1.3); Platelet Count (auto) 119 10^3/uL (140-450); Red Cell Distribution Width 18.2 % (11.8-14.3)
[2020-07-10 03:46] LABS: Basophils % (auto) 0.7 % (0.0-2.0); Eosinophils % (auto) 2.3 % (0.0-7.0); Hematocrit 21.9 % (41.0-53.0); Hemoglobin 7.6 g/dL (13.5-17.5); Lymphocytes # (auto) 0.3 10 ^3/uL (0.4-5.4); Lymphocytes % (auto) 8.3 % (10.0-50.0); Mean Corpuscular Hemoglobin 31.8 pg (28.0-32.0); Mean Corpuscular Hgb Conc. 34.6 g/dL (32.0-36.0); Mean Corpuscular Volume 91.8 fL (80.0-100.0); Monocytes % (auto) 9.1 % (0.0-12.0); Neutrophils # (auto) 3.3 10 ^3/uL (1.6-8.6); Neutrophils % (auto) 79.6 % (37.0-80.0); Nucleated Red Blood Cells % 0.4 %; Red Blood Cells 2.39 10^6/uL (4.5-5.90); White Blood Cell 4.1 10^3/uL (4.4-10.8)
[2020-07-10 04:03] LABS: Albumin 1.8 g/dL (3.4-5.0); Calcium 8.3 mg/dL (8.5-10.1); Potassium 3.2 mmol/L (3.5-5.1)
[2020-07-10 04:06] LABS: BUN/Creatinine Ratio 12.7; Bilirubin, Total 0.6 mg/dL (0.2-1.0); Total Protein 5.3 g/dL (6.4-8.2)
[2020-07-10 04:10] LABS: % Iron Saturation 36.3 % (20-55)
[2020-07-10] MEDS: InsuLIN REG 1unit/0.01ml Soln (100units/ml) SC SCH ×4 (06:00→18:00)
[2020-07-10] MEDS: METOCLOPRAMIDE HCL 5MG/ml INJ 2ml VIAL IV SCH ×2 (06:00→21:49)
[2020-07-10] MEDS: CALCIUM ACETATE 667 MG CAP PO SCH ×3 (06:00→21:50)
[2020-07-10] MEDS: ALBUTEROL SULF 2.5 MG/0.5ML(0.5%) NEB SOLN NEB SCH ×3 (07:00→22:00)
[2020-07-10] MEDS ORDERED: SODIUM CHL 0.9% 1000 ML BAG XX ONE (07:00)
[2020-07-10] MEDS: BUDESONIDE (INHALATION) 0.5 MG/2 ML NEB NEB SCH ×2 (07:00→22:00)
[2020-07-10] MEDS: DOPamine 1600MCG/ML D5W 250 ML IV SCH (09:29)
[2020-07-10] MEDS: fentaNYL Drip 2500mCg/250mlNS 250 ML IV SCH ×2 (09:31)
[2020-07-10] MEDS: CHOLECALCIFEROL (VITD3) 2,000 UNIT CAP PO SCH (10:00)
[2020-07-10] MEDS: DexAMETHasone SOD PHOS 10MG/1ML VIAL INJ IV SCH (10:00)
[2020-07-10] MEDS: ENOXAPARIN SOD 40 MG/0.4 ML SYRINGE SC SCH (10:00)
[2020-07-10] MEDS: FLORASTOR (S. BOULARDII) 250 MG CAP PO SCH (10:00)
[2020-07-10] MEDS: ASCORBIC ACID 1,000 MG TAB PO SCH (10:00)
[2020-07-10] MEDS: FLUCONAZOLE 200MG/100ML 100 ML IV SCH (10:00)
[2020-07-10] MEDS: SODIUM CHLOR 0.9% PF (SALINE LOCK) 10ML VIAL/SYR IV SCH ×2 (10:00→21:50)
[2020-07-10] MEDS ORDERED: FAMOTIDINE (10MG/ML) 2ML VL IV SCH (10:00)
[2020-07-10 10:14] LABS: Hematocrit 21.9 % (41.0-53.0); Hemoglobin 7.5 g/dL (13.5-17.5)
[2020-07-10] MEDS: PROPOFOL 100 ML IV SCH (13:30)
[2020-07-10] MEDS ORDERED: PANTOPRAZOLE 40 MG/10 ML VIAL INJ IV ONE (14:15)
[2020-07-10 14:54] LABS: Hemoglobin 8.4 g/dL (13.5-17.5)
[2020-07-10 14:57] LABS: Hematocrit 24.4 % (41.0-53.0)
[2020-07-10] MEDS ORDERED: EPOETIN ALFA 10,000 UNIT/1 ML VIAL SC ONE (21:00)
[2020-07-10 21:44] LABS: Hematocrit 22.6 % (41.0-53.0); Hemoglobin 7.6 g/dL (13.5-17.5)
[2020-07-10] MEDS: PANTOPRAZOLE 40 MG/10 ML VIAL INJ IV SCH (21:49)
[2020-07-11] VITALS (99 sets, daily range): BP systolic 107–144; BP diastolic 63–84
[2020-07-11] MEDS: DOPamine 1600MCG/ML D5W 250 ML IV SCH ×2 (02:15→18:04)
[2020-07-11] MEDS: MEROPENEM 1GM IVPB 100 ML IV SCH ×2 (03:00→15:14)
[2020-07-11 04:54] LABS: Hematocrit 22.3 % (41.0-53.0); Hemoglobin 7.7 g/dL (13.5-17.5)
[2020-07-11] MEDS: CALCIUM ACETATE 667 MG CAP PO SCH ×3 (06:00→22:02)
[2020-07-11] MEDS: ACCU-CHEK COMFORT CURVE STRIP VI SCH ×4 (06:00→18:04)
[2020-07-11] MEDS: InsuLIN REG 1unit/0.01ml Soln (100units/ml) SC SCH ×4 (06:00→18:00)
[2020-07-11] MEDS: METOCLOPRAMIDE HCL 5MG/ml INJ 2ml VIAL IV SCH ×3 (06:00→21:58)
[2020-07-11] MEDS: BUDESONIDE (INHALATION) 0.5 MG/2 ML NEB NEB SCH ×2 (06:30→18:03)
[2020-07-11] MEDS: ALBUTEROL SULF 2.5 MG/0.5ML(0.5%) NEB SOLN NEB SCH ×3 (06:30→18:03)
[2020-07-11] MEDS: MIDAZOLAM DRIP 50 mg/50mL 50 ML IV SCH (07:00)
[2020-07-11 09:30] LABS: Albumin 1.8 g/dL (3.4-5.0); Calcium 8.4 mg/dL (8.5-10.1); Potassium 3.7 mmol/L (3.5-5.1)
[2020-07-11 09:34] LABS: BUN/Creatinine Ratio 11.8; Bilirubin, Total 0.5 mg/dL (0.2-1.0); Total Protein 5.5 g/dL (6.4-8.2)
[2020-07-11] MEDS: ENOXAPARIN SOD 40 MG/0.4 ML SYRINGE SC SCH (10:00)
[2020-07-11] MEDS: PANTOPRAZOLE 40 MG/10 ML VIAL INJ IV SCH ×2 (10:00→21:58)
[2020-07-11] MEDS: DexAMETHasone SOD PHOS 10MG/1ML VIAL INJ IV SCH (10:00)
[2020-07-11] MEDS: ASCORBIC ACID 1,000 MG TAB PO SCH (10:00)
[2020-07-11] MEDS: FLUCONAZOLE 200MG/100ML 100 ML IV SCH (10:00)
[2020-07-11] MEDS: SODIUM CHLOR 0.9% PF (SALINE LOCK) 10ML VIAL/SYR IV SCH ×2 (10:00→21:58)
[2020-07-11] MEDS: CHOLECALCIFEROL (VITD3) 2,000 UNIT CAP PO SCH (10:00)
[2020-07-11] MEDS: FLORASTOR (S. BOULARDII) 250 MG CAP PO SCH (10:00)
[2020-07-11] MEDS: LINEZOLID 600MG/300ML 300 ML IV SCH ×2 (11:15→23:28)
[2020-07-11] MEDS: fentaNYL Drip 2500mCg/250mlNS 250 ML IV SCH (13:30)
[2020-07-11] MEDS: PROPOFOL 100 ML IV SCH (13:30)
[2020-07-12] VITALS (97 sets, daily range): BP systolic 128–193; BP diastolic 70–106
[2020-07-12] MEDS: MEROPENEM 1GM IVPB 100 ML IV SCH ×2 (03:00→15:00)
[2020-07-12 04:09] LABS: Basophils # (auto) 0 10 ^3/uL (0-0.2); Basophils % (auto) 0.3 % (0.0-2.0); Eosinophils # (auto) 0 10 ^3/uL (0-0.8); Eosinophils % (auto) 0.1 % (0.0-7.0); Hemoglobin 7.8 g/dL (13.5-17.5); Lymphocytes # (auto) 0.2 10 ^3/uL (0.4-5.4); Lymphocytes % (auto) 5.5 % (10.0-50.0); Mean Corpuscular Hemoglobin 31.3 pg (28.0-32.0); Mean Corpuscular Hgb Conc. 33.9 g/dL (32.0-36.0); Mean Corpuscular Volume 92.4 fL (80.0-100.0); Monocytes # (auto) 0.3 10 ^3/uL (0-1.3); Monocytes % (auto) 8.3 % (0.0-12.0); Neutrophils # (auto) 3.5 10 ^3/uL (1.6-8.6); Neutrophils % (auto) 85.8 % (37.0-80.0); Nucleated Red Blood Cells % 0.2 %; Platelet Count (auto) 128 10^3/uL (140-450); Red Blood Cells 2.49 10^6/uL (4.5-5.90); Red Cell Distribution Width 18.2 % (11.8-14.3); White Blood Cell 4.1 10^3/uL (4.4-10.8)
[2020-07-12] MEDS: MIDAZOLAM DRIP 50 mg/50mL 50 ML IV SCH (04:21)
[2020-07-12 04:25] LABS: BUN/Creatinine Ratio 13.2; Calcium 8.6 mg/dL (8.5-10.1); Potassium 3.7 mmol/L (3.5-5.1)
[2020-07-12] MEDS: InsuLIN REG 1unit/0.01ml Soln (100units/ml) SC SCH ×5 (06:00→23:47)
[2020-07-12] MEDS: METOCLOPRAMIDE HCL 5MG/ml INJ 2ml VIAL IV SCH ×3 (06:00→22:06)
[2020-07-12] MEDS: ACCU-CHEK COMFORT CURVE STRIP VI SCH ×5 (06:00→23:47)
[2020-07-12] MEDS: CALCIUM ACETATE 667 MG CAP PO SCH ×3 (06:00→22:06)
[2020-07-12] MEDS: BUDESONIDE (INHALATION) 0.5 MG/2 ML NEB NEB SCH ×2 (06:06→22:00)
[2020-07-12] MEDS: ALBUTEROL SULF 2.5 MG/0.5ML(0.5%) NEB SOLN NEB SCH ×3 (06:06→22:00)
[2020-07-12] MEDS: FLUCONAZOLE 200MG/100ML 100 ML IV SCH (08:20)
[2020-07-12] MEDS: DexAMETHasone SOD PHOS 10MG/1ML VIAL INJ IV SCH (08:21)
[2020-07-12] MEDS: PANTOPRAZOLE 40 MG/10 ML VIAL INJ IV SCH ×2 (08:22→22:05)
[2020-07-12] MEDS: SODIUM CHLOR 0.9% PF (SALINE LOCK) 10ML VIAL/SYR IV SCH ×2 (08:22→22:06)
[2020-07-12] MEDS: ASCORBIC ACID 1,000 MG TAB PO SCH (08:23)
[2020-07-12] MEDS: CHOLECALCIFEROL (VITD3) 2,000 UNIT CAP PO SCH (08:23)
[2020-07-12] MEDS: FLORASTOR (S. BOULARDII) 250 MG CAP PO SCH (08:23)
[2020-07-12] MEDS: ENOXAPARIN SOD 40 MG/0.4 ML SYRINGE SC SCH (10:03)
[2020-07-12] MEDS: fentaNYL Drip 2500mCg/250mlNS 250 ML IV SCH (10:36)
[2020-07-12] MEDS: DOPamine 1600MCG/ML D5W 250 ML IV SCH (11:34)
[2020-07-12] MEDS: LINEZOLID 600MG/300ML 300 ML IV SCH ×2 (12:30→22:55)
[2020-07-12] MEDS: PROPOFOL 100 ML IV SCH ×2 (12:40→21:15)
[2020-07-12] MEDS: ACETAMINOPHEN 500 MG TAB PO PRN (21:35)
[2020-07-13] VITALS (87 sets, daily range): BP systolic 55–189; BP diastolic 13–105
[2020-07-13] MEDS: MIDAZOLAM DRIP 50 mg/50mL 50 ML IV SCH
[2020-07-13 00:27] LABS: BUN/Creatinine Ratio 13.7; Calcium 8.4 mg/dL (8.5-10.1); Magnesium 2.3 mg/dL (1.6-2.6); Potassium 3.6 mmol/L (3.5-5.1)
[2020-07-13] MEDS: LINEZOLID 600MG/300ML 300 ML IV SCH ×2 (00:40→11:00)
[2020-07-13] MEDS ORDERED: LABETALOL HCL 5 MG/ML 4ML SYRINGE IV ONE (01:00)
[2020-07-13] MEDS ORDERED: LABETALOL HCL 5 MG/ML ML 20ML VIAL IV ONE (01:00)
[2020-07-13] MEDS: ATRACURIUM BESYLATE 1,000 MG in D5W 5% 150 ML IV SCH ×2 (02:15→22:40)
[2020-07-13] MEDS: fentaNYL Drip 2500mCg/250mlNS 250 ML IV SCH (02:28)
[2020-07-13] MEDS: MEROPENEM 1GM IVPB 100 ML IV SCH ×2 (03:09→15:00)
[2020-07-13] MEDS ORDERED: ATRACURIUM BESYLATE (10 MG/ ML) 10 ML VIAL ONE (04:30)
[2020-07-13] MEDS: DOPamine 1600MCG/ML D5W 250 ML IV SCH ×2 (04:30→21:15)
[2020-07-13] MEDS ORDERED: NOREPINEPHRINE 8 MG/250ML KIT 250 ML IV ONE (05:29)
[2020-07-13 05:38] LABS: Basophils # (auto) 0 10 ^3/uL (0-0.2); Basophils % (auto) 0.6 % (0.0-2.0); Eosinophils # (auto) 0.1 10 ^3/uL (0-0.8); Eosinophils % (auto) 1.9 % (0.0-7.0); Hemoglobin 8.9 g/dL (13.5-17.5); Lymphocytes # (auto) 0.4 10 ^3/uL (0.4-5.4); Lymphocytes % (auto) 7.3 % (10.0-50.0); Mean Corpuscular Hemoglobin 32.2 pg (28.0-32.0); Mean Corpuscular Hgb Conc. 34.4 g/dL (32.0-36.0); Mean Corpuscular Volume 93.6 fL (80.0-100.0); Monocytes # (auto) 0.3 10 ^3/uL (0-1.3); Monocytes % (auto) 4.3 % (0.0-12.0); Neutrophils # (auto) 5.1 10 ^3/uL (1.6-8.6); Neutrophils % (auto) 85.9 % (37.0-80.0); Nucleated Red Blood Cells % 0.6 %; Platelet Count (auto) 117 10^3/uL (140-450); Red Blood Cells 2.78 10^6/uL (4.5-5.90)
[2020-07-13] MEDS: InsuLIN REG 1unit/0.01ml Soln (100units/ml) SC SCH ×2 (06:00→12:00)
[2020-07-13 06:05] LABS: Calcium 7.9 mg/dL (8.5-10.1); Potassium 3.8 mmol/L (3.5-5.1)
[2020-07-13 06:06] LABS: % Iron Saturation 39.3 % (20-55)
[2020-07-13 06:07] LABS: BUN/Creatinine Ratio 13.1
[2020-07-13] MEDS: ACCU-CHEK COMFORT CURVE STRIP VI SCH ×3 (06:25→18:00)
[2020-07-13] MEDS: METOCLOPRAMIDE HCL 5MG/ml INJ 2ml VIAL IV SCH ×3 (06:26→22:00)
[2020-07-13] MEDS: CALCIUM ACETATE 667 MG CAP PO SCH ×3 (06:26→22:00)
[2020-07-13] MEDS ORDERED: NOREPINEPHRINE 8 MG/250ML KIT 250 ML IV SCH (06:45)
[2020-07-13] MEDS ORDERED: SODIUM CHL 0.9% 1000 ML BAG XX ONE (07:00)
[2020-07-13] MEDS: BUDESONIDE (INHALATION) 0.5 MG/2 ML NEB NEB SCH ×2 (08:00→22:00)
[2020-07-13] MEDS: ALBUTEROL SULF 2.5 MG/0.5ML(0.5%) NEB SOLN NEB SCH ×2 (08:00→22:00)
[2020-07-13] MEDS: FLUCONAZOLE 200MG/100ML 100 ML IV SCH (10:00)
[2020-07-13] MEDS: DexAMETHasone SOD PHOS 10MG/1ML VIAL INJ IV SCH (10:00)
[2020-07-13] MEDS: SODIUM CHLOR 0.9% PF (SALINE LOCK) 10ML VIAL/SYR IV SCH ×2 (10:00→22:00)
[2020-07-13] MEDS: PANTOPRAZOLE 40 MG/10 ML VIAL INJ IV SCH ×2 (10:00→22:00)
[2020-07-13] MEDS: ASCORBIC ACID 1,000 MG TAB PO SCH (11:08)
[2020-07-13] MEDS: FLORASTOR (S. BOULARDII) 250 MG CAP PO SCH (11:08)
[2020-07-13] MEDS: CHOLECALCIFEROL (VITD3) 2,000 UNIT CAP PO SCH (11:08)
[2020-07-13] MEDS: ENOXAPARIN SOD 40 MG/0.4 ML SYRINGE SC SCH (11:09)
[2020-07-13] MEDS ORDERED: SODIUM FERR GLUC 62.5MG/5ML 125 MG in SODIUM CHL 0.9% 100 ML IV ONE (11:30)
[2020-07-13] MEDS ORDERED: levoFLOXacin 250MG 50 ML IV ONE (11:30)
[2020-07-13] MEDS ORDERED: SODIUM FERR GLUC 62.5MG/5ML 125 MG in SODIUM CHL 0.9% 100 ML IV SCH (12:00)
[2020-07-13] MEDS: LACTULOSE 20Gm/30ML SOLN PO SCH ×2 (14:00→22:00)
[2020-07-13] MEDS ORDERED: EPINEPHrine HCL 250 ML IV SCH (18:00)
[2020-07-13] MEDS ORDERED: PHENYLEPHRINE IV 250 ML IV ONE ×2 (19:17→19:20)
[2020-07-13 19:44] LABS: Basophils # (auto) 0.1 10 ^3/uL (0-0.2); Basophils % (auto) 0.9 % (0.0-2.0); Eosinophils # (auto) 0.1 10 ^3/uL (0-0.8); Eosinophils % (auto) 1.1 % (0.0-7.0); Hematocrit 27.3 % (41.0-53.0); Hemoglobin 9.5 g/dL (13.5-17.5); Lymphocytes # (auto) 0.4 10 ^3/uL (0.4-5.4); Lymphocytes % (auto) 7.1 % (10.0-50.0); Mean Corpuscular Hemoglobin 32.7 pg (28.0-32.0); Mean Corpuscular Hgb Conc. 34.9 g/dL (32.0-36.0); Mean Corpuscular Volume 93.7 fL (80.0-100.0); Monocytes # (auto) 0.2 10 ^3/uL (0-1.3); Monocytes % (auto) 3.1 % (0.0-12.0); Neutrophils % (auto) 87.8 % (37.0-80.0); Platelet Count (auto) 112 10^3/uL (140-450); Red Blood Cells 2.91 10^6/uL (4.5-5.90); Red Cell Distribution Width 18.9 % (11.8-14.3); White Blood Cell 5.7 10^3/uL (4.4-10.8)
[2020-07-13] MEDS ORDERED: PHENYLEPHRINE IV 250 ML IV SCH (19:45)
[2020-07-13 19:59] LABS: BUN/Creatinine Ratio 11.8; Calcium 7.2 mg/dL (8.5-10.1); Potassium 4.6 mmol/L (3.5-5.1)
[2020-07-13 20:06] LABS: Nucleated Red Blood Cells % 3.1 %
[2020-07-13] MEDS ORDERED: EPOETIN ALFA 10,000 UNIT/1 ML VIAL SC ONE (21:00)
[2020-07-13] MEDS ORDERED: SODIUM BICARBONATE 8.4 % INJ 50ML VIAL IV ONE (21:30)
[2020-07-13] MEDS ORDERED: VASOPRESSIN 50 UNITS in D5W 5% 247.5 ML IV SCH (21:30)
[2020-07-13] MEDS ORDERED: SODIUM BICARBONATE 50ML VIAL 150 ML in SOD CHL 0.45% 1,000 ML IV SCH (21:30)
[2020-07-13] MEDS ORDERED: ALBUMIN 5% 50 ML IV ONE (21:30)
[2020-07-13] MEDS ORDERED: SODIUM BICARBONATE 8.4% INJ 50ML SYRINGE ONE (21:33)
[2020-07-13] MEDS ORDERED: ALBUMIN 5% 250 ML IV ONE ×2 (22:15→22:19)
[2020-07-14] VITALS (12 sets, daily range): BP systolic 74–105; BP diastolic 39–53
[2020-07-14] MEDS: ACCU-CHEK COMFORT CURVE STRIP VI SCH
[2020-07-14] MEDS ORDERED: DOPamine 1600MCG/ML D5W 250 ML IV SCH
[2020-07-14] MEDS: InsuLIN REG 1unit/0.01ml Soln (100units/ml) SC SCH
[2020-07-14] MEDS ORDERED: SODIUM BICARBONATE 8.4% INJ 50ML SYRINGE ONE (02:33)
[2020-07-14] MEDS: MEROPENEM 1GM IVPB 100 ML IV SCH (02:51)
[2020-07-14] MEDS ORDERED: EPINEPHrine HCL 1 MG/10 ML SYRG IV ONE ×2 (03:14)
[2020-07-14] MEDS ORDERED: CALCIUM CHLOR(10%) 100MG/ML 10ML SYRINGE IV ONE (03:14)
[2020-07-14] MEDS ORDERED: SODIUM BICARBONATE 8.4% INJ 50ML SYRINGE IV ONE ×2 (03:14)
[2020-07-14] MEDS ORDERED: DOPamine 1600mCg/ml 400MG/250ml NSorD5 KIT/BAG IV ONE (03:14)
[2020-07-14] MEDS ORDERED: levoFLOXacin 250MG 50 ML IV SCH (10:00)
== END 2020-07-14 03:15 | DRG 4 ==
LOC: ER 15:58 → EDBD 15:58 → TELE 15:59 → TELE-CENTR 05-25 03:27 → TELE-WESTW 06-01 17:34 → DOU IN ICU 06-02 16:52
PROVIDERS: ADMIT Internal Medicine; ATTEND Internal Medicine
PROC: 06HY33Z Insertion of Infusion Device into Lower Vein, Percutaneous Approach (ICD-10-PCS; 2020-05-24)
PROC: XW13325 Transfusion of Convalescent Plasma (Nonautologous) into Peripheral Vein, Percutaneous Approach, New Technology Group 5 (ICD-10-PCS; principal; 2020-05-26)
PROC: XW033E5 Introduction of Remdesivir Anti-infective into Peripheral Vein, Percutaneous Approach, New Technology Group 5 (ICD-10-PCS; 2020-05-27)
PROC: 5A1955Z Respiratory Ventilation, Greater than 96 Consecutive Hours (ICD-10-PCS; 2020-06-06)
PROC: 0BH17EZ Insertion of Endotracheal Airway into Trachea, Via Natural or Artificial Opening (ICD-10-PCS; 2020-06-06)
PROC: 5A09557 Assistance with Respiratory Ventilation, Greater than 96 Consecutive Hours, Continuous Positive Airway Pressure (ICD-10-PCS; 2020-06-06)
PROC: 5A1D70Z Performance of Urinary Filtration, Intermittent, Less than 6 Hours Per Day (ICD-10-PCS; 2020-06-08)
PROC: 5A1D70Z Performance of Urinary Filtration, Intermittent, Less than 6 Hours Per Day (ICD-10-PCS; 2020-06-12)
PROC: 5A1D70Z Performance of Urinary Filtration, Intermittent, Less than 6 Hours Per Day (ICD-10-PCS; 2020-06-15)
PROC: 5A1D70Z Performance of Urinary Filtration, Intermittent, Less than 6 Hours Per Day (ICD-10-PCS; 2020-06-15)
PROC: 5A1D70Z Performance of Urinary Filtration, Intermittent, Less than 6 Hours Per Day (ICD-10-PCS; 2020-06-17)
PROC: 5A1D70Z Performance of Urinary Filtration, Intermittent, Less than 6 Hours Per Day (ICD-10-PCS; 2020-06-19)
PROC: 30233N1 Transfusion of Nonautologous Red Blood Cells into Peripheral Vein, Percutaneous Approach (ICD-10-PCS; 2020-06-20)
PROC: 5A1D70Z Performance of Urinary Filtration, Intermittent, Less than 6 Hours Per Day (ICD-10-PCS; 2020-06-22)
PROC: 5A1D70Z Performance of Urinary Filtration, Intermittent, Less than 6 Hours Per Day (ICD-10-PCS; 2020-06-25)
PROC: 5A1D70Z Performance of Urinary Filtration, Intermittent, Less than 6 Hours Per Day (ICD-10-PCS; 2020-06-27)
PROC: 5A1D70Z Performance of Urinary Filtration, Intermittent, Less than 6 Hours Per Day (ICD-10-PCS; 2020-06-30)
PROC: 0DH63UZ Insertion of Feeding Device into Stomach, Percutaneous Approach (ICD-10-PCS; 2020-07-02)
PROC: 5A1D70Z Performance of Urinary Filtration, Intermittent, Less than 6 Hours Per Day (ICD-10-PCS; 2020-07-02)
PROC: 0B110F4 Bypass Trachea to Cutaneous with Tracheostomy Device, Open Approach (ICD-10-PCS; 2020-07-02 11:45)
PROC: 5A1D70Z Performance of Urinary Filtration, Intermittent, Less than 6 Hours Per Day (ICD-10-PCS; 2020-07-05)
PROC: 5A1D70Z Performance of Urinary Filtration, Intermittent, Less than 6 Hours Per Day (ICD-10-PCS; 2020-07-07)
PROC: 5A1D70Z Performance of Urinary Filtration, Intermittent, Less than 6 Hours Per Day (ICD-10-PCS; 2020-07-08)
PROC: 02HV33Z Insertion of Infusion Device into Superior Vena Cava, Percutaneous Approach (ICD-10-PCS; 2020-07-09)
PROC: B548ZZA Ultrasonography of Superior Vena Cava, Guidance (ICD-10-PCS; 2020-07-09)
PROC: 06H033Z Insertion of Infusion Device into Inferior Vena Cava, Percutaneous Approach (ICD-10-PCS; 2020-07-10)
PROC: B549ZZA Ultrasonography of Inferior Vena Cava, Guidance (ICD-10-PCS; 2020-07-10)
PROC: 5A1D70Z Performance of Urinary Filtration, Intermittent, Less than 6 Hours Per Day (ICD-10-PCS; 2020-07-10)
PROC: 5A1D70Z Performance of Urinary Filtration, Intermittent, Less than 6 Hours Per Day (ICD-10-PCS; 2020-07-13)
PROC: 5A12012 Performance of Cardiac Output, Single, Manual (ICD-10-PCS; 2020-07-14)
DX: A41.89 Other specified sepsis (principal); U07.1 COVID-19; N17.0 Acute kidney failure with tubular necrosis; J12.82 Pneumonia due to coronavirus disease 2019; J96.01 Acute respiratory failure with hypoxia; J15.6 Pneumonia due to other Gram-negative bacteria; K72.00 Acute and subacute hepatic failure without coma; R65.21 Severe sepsis with septic shock; E87.1 Hypo-osmolality and hyponatremia; D68.59 Other primary thrombophilia; Z99.11 Dependence on respirator [ventilator] status; E87.6 Hypokalemia; E66.01 Morbid (severe) obesity due to excess calories; Z68.39 Body mass index [BMI] 39.0-39.9, adult; F10.10 Alcohol abuse, uncomplicated; K72.90 Hepatic failure, unspecified without coma; I46.9 Cardiac arrest, cause unspecified; D69.59 Other secondary thrombocytopenia; D63.1 Anemia in chronic kidney disease; D89.839 Cytokine release syndrome, grade unspecified; E11.22 Type 2 diabetes mellitus with diabetic chronic kidney disease; E83.39 Other disorders of phosphorus metabolism; E87.5 Hyperkalemia; E88.09 Other disorders of plasma-protein metabolism, not elsewhere classified; F12.90 Cannabis use, unspecified, uncomplicated; K29.70 Gastritis, unspecified, without bleeding; I12.9 Hypertensive chronic kidney disease with stage 1 through stage 4 chronic kidney disease, or unspecified chronic kidney disease; K74.60 Unspecified cirrhosis of liver; Z82.49 Family history of ischemic heart disease and other diseases of the circulatory system; Z83.3 Family history of diabetes mellitus; Z86.74 Personal history of sudden cardiac arrest; N18.9 Chronic kidney disease, unspecified
CPT/HCPCS: 36415; 36569; 36600; 71045; 80048; 80053; 80076; 80202; 81001; 82040; 82306; 82570; 82728; 82805; 82962; 83036; 83540; 83550; 83605; 83615; 83735; 83880; 83935; 84100; 84133; 84300; 84478; 84484; 84550; 85007; 85014; 85018; 85025; 85027; 85045; 85379; 85610; 85730; 86141; 86704; 86705; 86850; 86900; 86901; 86920; 87040; 87070; 87077; 87081; 87086; 87186; 87205; 87340; 87493; 90935; 93970; 94002; 94003; 94640; 94660; C9113; G0378; J0171; J0330; J0610; J0885; J1100; J1450; J1642; J1815; J1956; J2185; J2250; J2543; J2704; J3480; J3490; J7060; J7131; P9047